=== PATIENT | male | born 1955 | race Caucasian/White ===

== ENCOUNTER 2019-02-01 09:28 | Inpatient (IN) | payer BC, MEDICARE, OTHER ==
[~2019-02-01] VITALS: Ht 182.9 cm; Wt 72.0 kg
[2019-02-01] MEDS ORDERED: THIAMINE 100 MG TAB PO ONE (10:00)
[2019-02-01] MEDS ORDERED: FOLIC ACID 1 MG TAB PO ONE (10:00)
[2019-02-01] MEDS ORDERED: LORAZEPAM 2 MG INJ IV ONE ×2 (10:00→11:30)
[2019-02-01] MEDS ORDERED: SOD CHLORIDE 0.9% 1,000 ML IV ONE ×2 (10:00→11:30)
--- NOTE | 2019-02-01 13:39 | ERD ---
ER Documentation Chief Complaint Chief Complaint bib ra for alcohol withdrawal symptoms , last drink x 4 days ago HPI This is a 63-year-old male with a past medical history of significant alcohol abuse who is presenting for symptoms concerning for alcohol withdrawal. The patient reportedly last drink 1/5 of tequila approximately 4 days ago. The patient did have a shot of vodka this morning to see if it would help his alcohol withdrawal symptoms, but it did not. The patient has been more tremulous and shaky than normal. He does endorse nausea with a few episodes of nonbilious nonbloody vomiting. The patient does have ambulatory dysfunction at baseline, but he has been falling more frequent over the last few days. The pat osiris reportedly fell this morning and felt too weak to get up. The patient endorses generalized weakness but no focal deficits. He denies any weakness or numbness or tingling to the face or extremities. He did hit his head but denies any loss of consciousness. He denies any headache or vision changes at this time. He denies any neck or back pain. The patient does not endorse any confusion. He is alert and oriented x4. He is not making up stories. The patient denies feeling sick recently. The patient denies fever or chills. The patient denies lightheadedness or dizziness. The patient has had no chest pain or trouble breathing. The patient denies abdominal pain. The patient denies changes to bowel movements or urination. The patient recently got insurance after turning 63. He was evaluated by primary care physician who is assessing him for his alcoholism. He was scheduled to get an MRI today, but this is been deferred due to coming to the emergency department instead. ROS All systems reviewed and are negative except as per history of present illness. Medications Home Meds No Active Prescriptions or Reported Meds Allergies Allergies: Coded Allergies: No Known Allergies (Verified Allergy, Mild, 02/01/19) PMhx/Soc History of Surgery: No Anesthesia Reaction: No Hx Neurological Disorder: No Hx Respiratory Disorders: No Hx Cardiac Disorders: No Hx Psychiatric Problems: No Hx Miscellaneous Medical Probl: No Hx Alcohol Use: Yes Hx Substance Use: No Hx Tobacco Use: No Smoking Status: Never smoker FmHx Family History: No diabetes Physical Exam Vitals Vital Signs Date Temp Pulse Resp B/P (MAP) Pulse Ox O2 O2 Flow FiO2 Time Delivery Rate 02/01/19 89 16 123/87 98 Room Air 12:28 (99) 02/01/19 93 18 130/90 97 Room Air 10:35 (103) 02/01/19 97.8 116 18 161/98 100 09:34 (119) Physical Exam Const: No apparent distress, well-developed, well-nourished Head: Normocephalic, Atraumatic Eyes: Normal Conjunctiva. Extraocular movements intact. Pupils equal, round and reactive to light ENT: Normal External Ears, Nose. Dry mucous membranes. Neck: Full range of motion. No meningismus. Resp: Clear to auscultation bilaterally, No wheezes, rales or rhonchi Cardio: Regular rate and rhythm. No murmurs, rubs or gallops Abd: Soft, non tender, non distended. Normal bowel sounds Skin: No petechiae or rashes Back: No midline tenderness. No CVA tenderness Ext: No cyanosis, or edema Neur: Awake and alert, oriented 4. Cranial nerves intact. No facial droop. Normal strength, sensation. Tremulous but coordination is normal. Psych: Anxious Result Diagram: 02/01/19 1132 02/01/19 1132 Results 24 hrs Laboratory Tests Test 02/01/19 09:49 02/01/19 11:32 Ethyl Alcohol Level < 10.0 mg/dl White Blood Count 9.1 10^3/ul Red Blood Count 3.79 10^6/ul Hemoglobin 12.6 g/dl Hematocrit 36.4 % Mean Corpuscular Volume 96.0 fl Mean Corpuscular Hemoglobin 33.2 pg Mean Corpuscular Hemoglobin Concent 34.6 g/dl Red Cell Distribution Width 13.2 % Platelet Count 73 10^3/UL Mean Platelet Volume 12.1 fl Immature Granulocytes % 0.600 % Neutrophils % 87.2 % Lymphocytes % 4.3 % Monocytes % 7.7 % Eosinophils % 0.0 % Basophils % 0.2 % Nucleated Red Blood Cells % 0.0 /100WBC Immature Granulocytes # 0.050 10^3/ul Neutrophils # 7.9 10^3/ul Lymphocytes # 0.4 10^3/ul Monocytes # 0.7 10^3/ul Eosinophils # 0.0 10^3/ul Basophils # 0.0 10^3/ul Nucleated Red Blood Cells # 0.0 10^3/ul Sodium Level 140 mmol/L Potassium Level 3.1 mmol/L Chloride Level 104 mmol/L Carbon Dioxide Level 24 mmol/L Anion Gap 12 Blood Urea Nitrogen 16 mg/dl Creatinine 0.86 mg/dl Est Glomerular Filtrat Rate mL/min > 60 mL/min Glucose Level 124 mg/dl Calcium Level 8.4 mg/dl Total Bilirubin 2.0 mg/dl Direct Bilirubin 0.00 mg/dl Indirect Bilirubin 2.0 mg/dl Aspartate Amino Transf (AST/SGOT) 123 IU/L Alanine Aminotransferase (ALT/SGPT) 68 IU/L Alkaline Phosphatase 71 IU/L Total Protein 7.1 g/dl Albumin 4.0 g/dl Globulin 3.10 g/dl Albumin/Globulin Ratio 1.29 Current Medications Medications Dose Sig/Blane Start Time Status Last (Trade) Ordered Route PRN Stop Time Admin Dose Reason Admin Lorazepam 1 mg ONCE ONCE 02/01/19 DC 02/01/19 (Ativan) IV 10:00 09:45 02/01/19 10:01 Thiamine 100 mg ONCE ONCE 02/01/19 DC 02/01/19 HCl PO 10:00 10:01 (Vitamin B1) 02/01/19 10:01 Folic Acid 1 mg ONCE ONCE 02/01/19 DC 02/01/19 (Folic Acid) PO 10:00 10:01 02/01/19 10:01 Sodium 1,000 ml @ Q1H ONCE 02/01/19 DC 02/01/19 Chloride 1,000 mls/hr IV 10:00 09:45 02/01/19 10:59 Lorazepam 1 mg ONCE ONCE 02/01/19 DC 02/01/19 (Ativan) IV 11:30 11:52 02/01/19 11:31 Sodium 1,000 ml @ Q1H ONCE 02/01/19 DC 02/01/19 Chloride 1,000 mls/hr IV 11:30 11:52 02/01/19 12:29 Procedures/MDM MDM The patient's presentation warrants further investigation. Previous medical records, if available, were reviewed. LABS The patient's laboratory testing was obtained and reviewed. No emergent treatment was required unless described below. CBC: Mild normocytic anemia, not emergent. Thrombocytopenia without evidence of acute blood loss. No E/o systemic infection. Chemistry: Mild hypokalemia, not emergent. Hyperbilirubinemia with transaminitis and a pattern concerning for alcoholic liver disease and obstructive cholestatic liver disease. No E/o severe acidosis or alkalosis or renal failure or diabetic ketoacidosis Tox: No E/o alcohol abuse. IMAGING Imaging and Radiology interpretation reviewed. CT brain FINDINGS: The ventricles and sulci are mildly prominent indicative of volume loss. There is mild cerebellar volume loss. There is no intracranial hemorrhage, mass effect or midline shift. No abnormal intra-axial or extra-axial fluid collections are seen. The dickerson/white matter differentiation is well preserved. There are mild scattered foci of hypoattenuation in the periventricular, deep, and subcortical white matter, which are nonspecific in etiology but likely reflect chronic small vessel ischemic changes. There are mild intracranial vascular calcifications consistent with atherosclerosis. The visualized paranasal sinuses are essentially clear. IMPRESSION: 1. No acute intracranial hemorrhage, transcortical infarction or mass effect. 2. Mild intracranial atherosclerosis and chronic small vessel ischemic borjas ges. 3. Mild generalized cerebral and cerebellar volume loss. Electronically viewed and signed by Oskar Paris MD, MD on 02/01/2019 11:32 TREATMENT/DISPOSITION The patient presents for symptoms concerning for alcohol withdrawal. I do suspect alcohol withdrawal at this time, but I do not suspect delirium tremens. The patient has not had a seizure episode despite not having any significant alcohol in his system over the last 4 days. The patient was treated with IV fluids, thiamine, folate and Ativan in the emergency department with significant improvement of his symptoms. The patient is at risk of alcohol withdrawal related seizures over the next 3 to 4 days. I discussed the risks of concomitant use of Ativan and alcohol including respiratory depression and , and the patient expressed understanding. I will give the patient a prescription for a few Ativan tablets to help with his withdrawal symptoms. I do not feel the patient requires admission at this time. He may continue to pursue his outpatient regimen with his primary physician. The patient does have sequelae of alcoholic liver disease including anemia, thrombocytopenia and obstructive cholestatic disease. The patient understands the dangers of continued alcohol abuse. Many of the patient's symptoms are chronic in nature. While Wernicke's encephalopathy is certainly a possibility, this is not something that is new or acute. I will prescribe the patient thiamine and folate as well. DISCHARGE Upon reevaluation of the patient, symptoms have improved. No emergent diagnoses were identified. At this time, I feel that the patient stable for discharge. The patient was instructed to follow-up with a primary care physician in 1-3 days. The patient will be given strict precautions with which to return to the emergency department. Prescriptions: Zofran, Ativan, thiamine, folate The patient's blood pressure was elevated at greater than 120/80 while in the emergency department. The patient was otherwise stable with no evidence of hypertensive urgency or emergency. The patient does not require admission for blood pressure control. I have discussed with the patient the risks of hypertension. I have instructed the patient to return to the ER for any new or worsening symptoms including chest pain, shortness of breath, headache, blurred vision, confusion, nausea, vomiting or LOC. I have advised the patient to follow up with the primary care physician for outpatient monitoring and treatment for hypertension in 1-3 days. Disclaimer: Inadvertent spelling and grammatical errors are likely due to EHR/dictation software use and do not reflect on the overall quality of patient care. Note that the electronic time recorded on this note does not necessarily reflect the actual time of the patient encounter. Departure Diagnosis: Primary Impression: Alcohol withdrawal Complication of substance-induced condition: uncomplicated Qualified Codes: F10.230 - Alcohol dependence with withdrawal, uncomplicated Additional Impressions: Tremulousness Nausea Poor appetite Ambulatory dysfunction Normocytic anemia Thrombocytopenia Hypokalemia Alcoholic liver disease Obstructive cholestatic liver disease Condition: Stable Patient Instructions: Alcohol Addiction, Alcohol Withdrawal, Cirrhosis of the Liver, Fall Prevention, Nausea Additional Instructions: Thank you for for coming to [facility] for your care today. Please ask your nurse or provider if you have questions about your care today and do not leave until all your questions have been answered. Please use any medications given as directed and follow-up with your doctor (or the doctor you were referred to) in the next 1-3 days. If you do not have a primary care doctor you may follow up at the [facility] or [facility] (listed below). You may also use motrin and tylenol as needed for fever and/or pain unless instructed otherwise by your provider or nurse. Indications for more urgent follow-up have been discussed, but you may return to the Emergency Department at ANY time for any worrisome or worsening symptoms. If you have abdominal pain, please know that no test or exam you received is perfect and you should follow up within 8 hours for continued pain. If you had any imaging studies today, such as an X-Ray or CT Scan, these studies will be reviewed later by a radiologist. You will be called if there are important findings that were not identified today, so make sure the contact information you provided at registration is correct. If you received any narcotic pain control medicine today, such as Vicodin, Morphine or Dilaudid, your coordination and judgment may be affected for a number of hours. Please do not drive or operate heavy machinery, and you may want someone to assist you at home. If you were given a prescription for narcotic medication, be aware that it is very addictive- use sparingly and only if necessary. PLEASE SEEK FURTHER EVALUATION AND MANAGEMENT AT YOUR DOCTORS OFFICE WITHIN THE NEXT 1-3 DAYS. IT IS YOUR RESPONSIBILITY TO MAKE AN APPOINTMENT FOR FOLOW-UP CARE. IF YOU HAVE A PRIMARY DOCTOR, PLEASE CALL THEIR OFFICE TO SCHEDULE AN APPOINTMENT FOR FOLLOW UP. IF YOU DO NOT HAVE A PRIMARY DOCTOR YOU CAN CALL OUR PHYSICIAN REFERRAL HOTLINE AT IF YOU CAN NOT AFFORD TO SEE A PHYSICIAN YOU CAN CHOSE FROM THE FOLLOWING [facility]: [facility] [address] [facility] [facility] [address] [facility] [address] [facility] [facility] [address] [facility] [facility] [address] [facility]. [facility]. [address] SHARA MAGAÑA MD Feb 01, 2019 13:23
[2019-02-01] MEDS ORDERED: ONDA8TAB9 PO (13:45)
[2019-02-01] MEDS ORDERED: FOLI-50 PO (13:45)
[2019-02-01] MEDS ORDERED: LORA-441 PO (13:45)
[2019-02-01] MEDS ORDERED: THIA50TA7 PO (13:45)
[2019-02-01] MEDS ORDERED: ONDANSETRON 4 MG INJ IV PRN ×2 (15:30→16:00)
[2019-02-01] MEDS ORDERED: ACETAMINOPHEN 325 MG TAB PO PRN (15:30)
[2019-02-01 15:48] VITALS: Ht 182.9 cm; Wt 72.0 kg
[2019-02-01] MEDS ORDERED: hydrALAzine 20 MG INJ IV PRN (16:00)
[2019-02-01] MEDS ORDERED: NACL 0.9% 3 ML SYG IV SCH (16:00)
[2019-02-01] MEDS ORDERED: NITROGLYCERIN (SL) 0.4 MG TAB SL PRN (16:00)
[2019-02-01] MEDS ORDERED: MAGNESIUM HYDROXIDE 30ML CUP PO PRN (16:00)
[2019-02-01] MEDS ORDERED: ALBUTEROL/IPRATROPIUM (NEB) 3 ML AMP HHN PRN (16:00)
[2019-02-01] MEDS ORDERED: morphine 2 MG INJ IV PRN (16:00)
[2019-02-01] MEDS ORDERED: DOCUSATE SODIUM 100 MG CAP PO PRN (16:00)
[2019-02-01] MEDS: CHLORDIAZEPOXIDE 25 MG CAP PO SCH ×2 (16:18→20:33)
[2019-02-01] MEDS: SOD CHLORIDE 0.45% 1,000 ML IV SCH (16:19)
--- NOTE | 2019-02-01 16:27 | HP ---
Date/Time of Note Date/Time of Note DATE: 02/01/19 TIME: 16:22 Assessment/Plan VTE Prophylaxis SCD applied (from Nsg): Yes Pharmacological prophylaxis: other Lines/Catheters IV Catheter Type (from Nrsg): Saline Lock Assessment/Plan Hospital Course A/P: 63-year-old male with a past medical history of significant alcohol abuse, who was brought in for signs of alcohol withdrawal. # ETOH withdrawal: Again patient comes in with tremors and signs of severe withdrawal. -Banana bag, he did receive thiamine as there is concern of Wernicke's encephalopathy -Librium 50 mg 3 times daily, Ativan every 30 minutes as needed -We will get social work consult, check TSH, A1c, lipid panel as well #GI prophylaxis: PPI. Result Diagram: 02/01/19 1132 02/01/19 1132 Results 24hrs Laboratory Tests Test 02/01/19 09:49 02/01/19 11:32 Ethyl Alcohol Level < 10.0 H White Blood Count 9.1 Red Blood Count 3.79 L Hemoglobin 12.6 L Hematocrit 36.4 L Mean Corpuscular Volume 96.0 Mean Corpuscular Hemoglobin 33.2 H Mean Corpuscular Hemoglobin Concent 34.6 Red Cell Distribution Width 13.2 Platelet Count 73 L Mean Platelet Volume 12.1 H Immature Granulocytes % 0.600 H Neutrophils % 87.2 H Lymphocytes % 4.3 L Monocytes % 7.7 Eosinophils % 0.0 Basophils % 0.2 Nucleated Red Blood Cells % 0.0 Immature Granulocytes # 0.050 H Neutrophils # 7.9 H Lymphocytes # 0.4 L Monocytes # 0.7 Eosinophils # 0.0 Basophils # 0.0 Nucleated Red Blood Cells # 0.0 Sodium Level 140 Potassium Level 3.1 L Chloride Level 104 Carbon Dioxide Level 24 Anion Gap 12 Blood Urea Nitrogen 16 Creatinine 0.86 Est Glomerular Filtrat Rate mL/min > 60 Glucose Level 124 Calcium Level 8.4 Total Bilirubin 2.0 H Direct Bilirubin 0.00 Indirect Bilirubin 2.0 H Aspartate Amino Transf (AST/SGOT) 123 H Alanine Aminotransferase (ALT/SGPT) 68 Alkaline Phosphatase 71 Total Protein 7.1 Albumin 4.0 Globulin 3.10 Albumin/Globulin Ratio 1.29 HPI/ROS Admit Date/Time Admit Date/Time Hx of Present Illness 63-year-old male with a past medical history of significant alcohol abuse, who was brought in for signs of alcohol withdrawal. Per ER, the patient reportedly last drink 1/5 of tequila approximately 4 days ago. The patient did have a shot of vodka this morning to see if it would help his alcohol withdrawal symptoms, but it did not. Patient has been tremulous and more shaky than normal. He does endorse nausea with a few episodes of nonbilious nonbloody vomiting. Patient also apparently has been falling more frequent over the last few days. He re portedly fell this morning and felt too weak to get up. The patient endorses generalized weakness but no focal deficits. He denies any weakness or numbness or tingling to the face or extremities. He did hit his head but denies any loss of consciousness. Denies any upper lower GI bleeding, chest pain, shortness of breath, headaches or blurry vision. He denies any neck or back pain. When he came in today he was found with elevated blood alcohol levels and was given thiamine and multivitamin. PMH/Family/Social Past Medical History Medications Current Medications IV Flush (NS 3 ml) 3 ml PER PROTOCOL IV ; Start 02/01/19 at 16:00 Ondansetron HCl (Zofran Inj) 4 mg Q6H PRN IV NAUSEA/VOMITING; Start 02/01/19 at 16:00 Acetaminophen (Tylenol Tab) 650 mg Q6H PRN PO .PAIN 1-3 OR TEMP; Start 02/01/19 at 16:00 Acetaminophen/ Hydrocodone Bitart ([place] (5/325)) 1 tab Q6H PRN PO .MOD PAIN 4- 6; Start 02/01/19 at 16:00 Morphine Sulfate (morphine) 2 mg Q4H PRN IV .SEVERE PAIN 7-10; Start 02/01/19 at 16:00 Docusate Sodium (Colace) 100 mg Q12H PRN PO .CONSTIPATION; Start 02/01/19 at 16:00 Magnesium Hydroxide (Milk Of Mag) 30 ml DAILY PRN PO .CONSTIPATION; Start 02/01/19 at 16:00 Pantoprazole (Protonix Tab) 40 mg DAILY@06 PO ; Start 02/02/19 at 06:00 Sodium Chloride 1,000 ml @ 75 mls/hr [id number] IV Last administered on 02/01/19at 16:19; Admin Dose 75 MLS/HR; Start 02/01/19 at 15:49 Lorazepam (Ativan) 1 mg Q1H PRN IV CONTROL WITHDRAWAL SYMPTOMS; Start 02/01/19 at 16:00 Albuterol/ Ipratropium (Duoneb) 3 ml Q4H RESP THERAPY PRN HHN SHORTNESS OF BREATH; Start 02/01/19 at 16:00 Hydralazine HCl (Apresoline) 10 mg Q6H PRN IV ELEVATED BLOOD PRESSURE; Start 02/01/19 at 16:00 Nitroglycerin (Nitroglycerin (Sl Tab) 0.4 Mg) 1 tab Q5M PRN SL ANGINA; Start 02/01/19 at 16:00 Multivitamins 10 ml/Thiamine HCl 100 mg/Folic Acid 1 mg/Sodium Chloride 1,011.2 ml @ 125 mls/ hr DAILY@09 IVPB ; Start 02/02/19 at 09:00 Chlordiazepoxide (Librium) 50 mg TID PO Last administered on 02/01/19at 16:18; Admin Dose 50 MG; Start 02/01/19 at 16:00 Coded Allergies: No Known Allergies (Verified Allergy, Mild, 02/01/19) Past Surgical History Past Surgical Hx: other (Arm, tonsils) Social History Alcohol Use: heavy Smoking Status: Never smoker Drug Use: none Exam/Review of Systems Vital Signs Vitals Vital Signs Date Temp Pulse Resp B/P (MAP) Pulse Ox O2 O2 Flow FiO2 Time Delivery Rate 02/01/19 80 20 138/99 100 Room Air 14:24 (112) 02/01/19 98.6 14:00 Exam Exam General: Lying in bed, tremulous, but answering questions appropriately HEENT: Atraumatic, normocephalic. The pupils are equal, round and reactive. Neck: Supple Lungs: Clear to oscillation bilaterally, no wheezes Heart: Normal S1-S2, Regular rhythm and rate. Abdomen: Soft , nontender, nondistended , bowel sounds are present. Extremities: Normal to inspection, no edema no cyanosis Neurologic: No focal deficits SUSAN SPRING Feb 01, 2019 16:27
[2019-02-01 20:00] VITALS: BP 113/79; PULSE 63; RESP 18
[2019-02-01] MEDS ORDERED: LUT PO SCH (20:30)
[2019-02-01] MEDS ORDERED: FOLIC ACID PO SCH (20:30)
[2019-02-01] MEDS ORDERED: [UNRECOGNIZED DRUG - OTHER] PO SCH (20:30)
[2019-02-01] MEDS ORDERED: MULTIVITS MIN PO SCH (20:30)
[2019-02-01] MEDS: THIAMINE 100 MG TAB PO SCH (20:43)
[2019-02-01] MEDS: LORAZEPAM 2 MG INJ IV PRN (21:33)
[2019-02-02 02:00] VITALS: BP 135/92; PULSE 58; RESP 17
[2019-02-02] MEDS: LORAZEPAM 2 MG INJ IV PRN ×3 (02:04→22:06)
[2019-02-02] MEDS: SOD CHLORIDE 0.45% 1,000 ML IV SCH ×2 (05:28→18:29)
[2019-02-02] MEDS: PANTOPRAZOLE (EC) 40 MG TAB PO SCH (05:29)
[2019-02-02] MEDS: CHLORDIAZEPOXIDE 25 MG CAP PO SCH ×3 (08:08→21:19)
[2019-02-02] MEDS: THIAMINE 100 MG TAB PO SCH (08:09)
[2019-02-02] MEDS: MULTIVITAMINS 10 ML, THIAMINE 100 MG, FOLIC ACID 1 MG in SOD CHLORIDE 0.9% 1,000 ML IVPB SCH (08:09)
[2019-02-02 08:36] VITALS: BP 125/54; PULSE 63; RESP 18
--- NOTE | 2019-02-02 15:07 | PN ---
Date/Time of Note Date/Time of Note DATE: 02/02/19 TIME: 15:04 Assessment/Plan VTE Prophylaxis Risk score (from Ns)>0 risk: 3 SCD applied (from [facility] [place] No SCD contraindicated: other Pharmacological prophylaxis: heparin Lines/Catheters IV Catheter Type (from [facility]): Peripheral IV Urinary Cath still in place: No Assessment/Plan Hospital Course S: Patient had some withdrawal and agitation last night, improved today, per nursing staff taking his p.o. medications including Librium. O: VS - see below PE: General: Lying in bed, less tremulous, answers questions appropriately HEENT: Atraumatic, normocephalic. The pupils are equal, round and reactive. Neck: Supple Lungs: Clear to oscillation bilaterally, no wheezes Heart: Normal S1-S2, Regular rhythm and rate. Abdomen: Soft , nontender, nondistended , bowel sounds are present. Extremities: Normal to inspection, no edema no cyanosis Neurologic: No focal deficits A/P: 63-year-old male with a past medical history of significant alcohol abuse, who was brought in for signs of alcohol withdrawal after quitting drinking 5 days ago. # ETOH withdrawal: Slowly improving again patient initially presented with significant tremors and signs of severe withdrawal. -For now continue daily banana bag, he did receive thiamine as there was concern of Wernicke's encephalopathy -Also continue Librium 50 mg 3 times daily, 1 mg IV Ativan every 30 minutes as needed -Follow final recommendations from physical therapy, along with social work consult -We will replete low potassium levels today #GI prophylaxis: PPI. Result Diagram: 02/02/19 0452 02/02/19 0452 Results 24hrs Laboratory Tests Test 02/01/19 16:55 02/02/19 04:52 Urine Color [place] Urine Clarity CLEAR Urine pH 6.0 Urine Specific [place] 1.015 Urine Ketones TRACE A Urine Nitrite NEGATIVE Urine Bilirubin NEGATIVE Urine Urobilinogen 2+ H Urine Leukocyte Esterase NEGATIVE Urine Microscopic RBC 1 Urine Microscopic WBC 1 Urine Hemoglobin 3+ H Urine Glucose NEGATIVE Urine Total Protein 2+ H White Blood Count 10.1 Red Blood Count 3.77 L Hemoglobin 12.5 L Hematocrit 37.5 L Mean Corpuscular Volume 99.5 Mean Corpuscular Hemoglobin 33.2 H Mean Corpuscular Hemoglobin Concent 33.3 Red Cell Distribution Width 13.3 Platelet Count 78 L Mean Platelet Volume 13.0 H Immature Granulocytes % 0.500 H Neutrophils % 77.6 H Lymphocytes % 9.4 L Monocytes % 12.3 H Eosinophils % 0.1 Basophils % 0.1 Nucleated Red Blood Cells % 0.0 Immature Granulocytes # 0.050 H Neutrophils # 7.9 H Lymphocytes # 1.0 Monocytes # 1.3 H Eosinophils # 0.0 Basophils # 0.0 Nucleated Red Blood Cells # 0.0 Sodium Level 142 Potassium Level 3.2 L Chloride Level 105 Carbon Dioxide Level 22 Anion Gap 15 H Blood Urea Nitrogen 19 Creatinine 0.82 Est Glomerular Filtrat Rate mL/min > 60 Glucose Level 64 #L Hemoglobin A1c 5.0 Calcium Level 8.7 Phosphorus Level 2.7 Magnesium Level 1.8 Triglycerides Level 72 Cholesterol Level 198 LDL Cholesterol, Calculated 88 HDL Cholesterol 96 H Cholesterol/HDL Ratio 2.0 Thyroid Stimulating Hormone (TSH) 3.050 Exam/Review of Systems Exam Vitals Vital Signs Date Temp Pulse Resp B/P (MAP) Pulse Ox O2 O2 Flow FiO2 Time Delivery Rate 02/02/19 98.3 63 18 125/54 97 Room Air 08:36 (77) Intake and Output 02/01/19 02/01/19 02/02/19 1515:00 23:00 07:00 IntakeIntake Total 1000 ml BalanceBalance 1000 ml Results Results 24hrs Laboratory Tests Test 02/01/19 16:55 02/02/19 04:52 Urine Color [place] Urine Clarity CLEAR Urine pH 6.0 Urine Specific [place] 1.015 Urine Ketones TRACE A Urine Nitrite NEGATIVE Urine Bilirubin NEGATIVE Urine Urobilinogen 2+ H Urine Leukocyte Esterase NEGATIVE Urine Microscopic RBC 1 Urine Microscopic WBC 1 Urine Hemoglobin 3+ H Urine Glucose NEGATIVE Urine Total Protein 2+ H White Blood Count 10.1 Red Blood Count 3.77 L Hemoglobin 12.5 L Hematocrit 37.5 L Mean Corpuscular Volume 99.5 Mean Corpuscular Hemoglobin 33.2 H Mean Corpuscular Hemoglobin Concent 33.3 Red Cell Distribution Width 13.3 Platelet Count 78 L Mean Platelet Volume 13.0 H Immature Granulocytes % 0.500 H Neutrophils % 77.6 H Lymphocytes % 9.4 L Monocytes % 12.3 H Eosinophils % 0.1 Basophils % 0.1 Nucleated Red Blood Cells % 0.0 Immature Granulocytes # 0.050 H Neutrophils # 7.9 H Lymphocytes # 1.0 Monocytes # 1.3 H Eosinophils # 0.0 Basophils # 0.0 Nucleated Red Blood Cells # 0.0 Sodium Level 142 Potassium Level 3.2 L Chloride Level 105 Carbon Dioxide Level 22 Anion Gap 15 H Blood Urea Nitrogen 19 Creatinine 0.82 Est Glomerular Filtrat Rate mL/min > 60 Glucose Level 64 #L Hemoglobin A1c 5.0 Calcium Level 8.7 Phosphorus Level 2.7 Magnesium Level 1.8 Triglycerides Level 72 Cholesterol Level 198 LDL Cholesterol, Calculated 88 HDL Cholesterol 96 H Cholesterol/HDL Ratio 2.0 Thyroid Stimulating Hormone (TSH) 3.050 Medications Medication Current Medications IV Flush (NS 3 ml) 3 ml PER PROTOCOL IV ; Start 02/01/19 at 16:00 Ondansetron HCl (Zofran Inj) 4 mg Q6H PRN IV NAUSEA/VOMITING; Start 02/01/19 at 16:00 Acetaminophen (Tylenol Tab) 650 mg Q6H PRN PO .PAIN 1-3 OR TEMP; Start 02/01/19 at 16:00 Acetaminophen/ Hydrocodone Bitart ([place] (5/325)) 1 tab Q6H PRN PO .MOD PAIN 4- 6; Start 02/01/19 at 16:00 Morphine Sulfate (morphine) 2 mg Q4H PRN IV .SEVERE PAIN 7-10; Start 02/01/19 at 16:00 Docusate Sodium (Colace) 100 mg Q12H PRN PO .CONSTIPATION; Start 02/01/19 at 16:00 Magnesium Hydroxide (Milk Of Mag) 30 ml DAILY PRN PO .CONSTIPATION; Start 02/01/19 at 16:00 Pantoprazole (Protonix Tab) 40 mg DAILY@06 PO Last administered on 02/02/19at 05:29; Admin Dose 40 MG; Start 02/02/19 at 06:00 Sodium Chloride 1,000 ml @ 75 mls/hr [id number] IV Last administered on 02/02/19at 05:28; Admin Dose 75 MLS/HR; Start 02/01/19 at 15:49 Lorazepam (Ativan) 1 mg Q1H PRN IV CONTROL WITHDRAWAL SYMPTOMS Last administered on 02/02/19at 09:00; Admin Dose 1 MG; Start 02/01/19 at 16:00 Albuterol/ Ipratropium (Duoneb) 3 ml Q4H RESP THERAPY PRN HHN SHORTNESS OF BREATH; Start 02/01/19 at 16:00 Hydralazine HCl (Apresoline) 10 mg Q6H PRN IV ELEVATED BLOOD PRESSURE; Start 02/01/19 at 16:00 Nitroglycerin (Nitroglycerin (Sl Tab) 0.4 Mg) 1 tab Q5M PRN SL ANGINA; Start 02/01/19 at 16:00 Multivitamins 10 ml/Thiamine HCl 100 mg/Folic Acid 1 mg/Sodium Chloride 1,011.2 ml @ 125 mls/ hr DAILY@09 IVPB Last administered on 02/02/19at 08:09; Admin Dose 125 MLS/HR; Start 02/02/19 at 09:00 Chlordiazepoxide (Librium) 50 mg TID PO Last administered on 02/02/19at 08:08; Admin Dose 50 MG; Start 02/01/19 at 16:00 Thiamine HCl (Vitamin B1) 50 mg DAILY PO Last administered on 02/02/19at 08:09; Admin Dose 50 MG; Start 02/01/19 at 20:30 Potassium Chloride 100 ml @ 50 mls/hr Q2H IVPB ; Start 02/02/19 at 16:00; Stop 02/02/19 at 23:59 SUSAN SPRING Feb 02, 2019 15:07
[2019-02-02 15:21] VITALS: BP 125/83; PULSE 71; RESP 20
[2019-02-02] MEDS: POTASSIUM CHLORIDE 100 ML IVPB SCH ×4 (16:47→22:55)
[2019-02-02 20:38] VITALS: BP 138/77; PULSE 95; RESP 18
[2019-02-02] MEDS ORDERED: HEPARIN 5,000 UNIT/1 ML VIAL SC SCH (21:00)
[2019-02-03] MEDS: ACETAMINOPHEN 325 MG TAB PO PRN ×2 (01:21→13:30)
[2019-02-03] MEDS: LORAZEPAM 2 MG INJ IV PRN (02:31)
[2019-02-03] MEDS: SOD CHLORIDE 0.45% 1,000 ML IV SCH ×3 (02:37→21:09)
[2019-02-03 02:57] VITALS: BP 142/74; PULSE 58; RESP 20
[2019-02-03] MEDS: PANTOPRAZOLE (EC) 40 MG TAB PO SCH (05:50)
[2019-02-03 07:50] VITALS: BP 135/84; PULSE 71; RESP 18
[2019-02-03] MEDS: MULTIVITAMINS 10 ML, THIAMINE 100 MG, FOLIC ACID 1 MG in SOD CHLORIDE 0.9% 1,000 ML IVPB SCH (08:12)
[2019-02-03] MEDS: THIAMINE 100 MG TAB PO SCH (08:13)
[2019-02-03] MEDS: CHLORDIAZEPOXIDE 25 MG CAP PO SCH ×3 (08:13→20:07)
[2019-02-03 14:12] VITALS: BP 127/84; PULSE 69; RESP 18
--- NOTE | 2019-02-03 16:07 | PN ---
Date/Time of Note Date/Time of Note DATE: 02/03/19 TIME: 15:59 Assessment/Plan VTE Prophylaxis Risk score (from [facility] [place])>0 risk: 4 SCD applied (from [facility] [place]): No SCD contraindicated: other Pharmacological prophylaxis: heparin Lines/Catheters IV C[facility]ter Type (from [facility]): Peripheral IV Urinary Cath still in place: No Assessment/Plan Hospital Course S: Patient still with some agitation symptoms, worked with PT, but improved. Tolerating diet. O: VS - see below PE: General: Lying in bed, less tremulous, answers questions appropriately HEENT: Atraumatic, normocephalic. The pupils are equal, round and reactive. Neck: Supple Lungs: Clear to oscillation bilaterally, no wheezes Heart: Normal S1-S2, Regular rhythm and rate. Abdomen: Soft , nontender, nondistended , bowel sounds are present. Extremities: Normal to inspection, no edema no cyanosis Neurologic: No focal deficits A/P: 63-year-old male with a past medical history of significant alcohol abuse, who was brought in for signs of alcohol withdrawal after quitting drinking 5 days ago. # ETOH withdrawal: Slowly improving again patient initially presented with significant tremors and signs of severe withdrawal. -For now continue daily banana bag, he did receive thiamine as there was concern of Wernicke's encephalopathy -Also continue Librium 50 mg 3 times daily, 1 mg IV Ativan every 30 minutes as needed -Continue OT and physical therap -We will replete low potassium levels today again #GI prophylaxis: PPI. Result Diagram: 02/03/19 0535 02/03/19 0535 Results 24hrs Laboratory Tests Test 02/03/19 05:35 White Blood Count 12.6 #H Red Blood Count 3.59 L Hemoglobin 12.1 L Hematocrit 37.4 L Mean Corpuscular Volume 104.2 H Mean Corpuscular Hemoglobin 33.7 H Mean Corpuscular Hemoglobin Concent 32.4 Red Cell Distribution Width 13.1 Platelet Count 95 #L Mean Platelet Volume 11.9 H Immature Granulocytes % 0.600 H Neutrophils % 80.3 H Lymphocytes % 8.3 L Monocytes % 9.9 Eosinophils % 0.7 Basophils % 0.2 Nucleated Red Blood Cells % 0.0 Immature Granulocytes # 0.070 H Neutrophils # 10.1 H Lymphocytes # 1.1 Monocytes # 1.3 H Eosinophils # 0.1 Basophils # 0.0 Nucleated Red Blood Cells # 0.0 Sodium Level 140 Potassium Level 3.4 L Chloride Level 103 Carbon Dioxide Level 15 L Anion Gap 22 #H Blood Urea Nitrogen 13 Creatinine 0.80 Est Glomerular Filtrat Rate mL/min > 60 Glucose Level 71 Calcium Level 8.3 L Phosphorus Level 2.6 Magnesium Level 1.6 L Total Bilirubin 1.4 H Direct Bilirubin 0.00 Indirect Bilirubin 1.4 H Aspartate Amino Transf (AST/SGOT) 109 H Alanine Aminotransferase (ALT/SGPT) 58 Alkaline Phosphatase 65 Total Protein 6.9 Albumin 3.7 Exam/Review of Systems Exam Vitals Vital Signs Date Temp Pulse Resp B/P (MAP) Pulse Ox O2 O2 Flow FiO2 Time Delivery Rate 02/03/19 98.1 69 18 127/84 97 Room Air 14:12 (98) Intake and Output 02/02/19 02/02/19 02/03/19 1515:00 23:00 07:00 IntakeIntake Total 150 ml 1506.2 ml 1765 ml OutputOutput Total 150 ml 200 ml 1 ml BalanceBalance 0 ml 1306.2 ml 1764 ml Results Results 24hrs Laboratory Tests Test 02/03/19 05:35 White Blood Count 12.6 #H Red Blood Count 3.59 L Hemoglobin 12.1 L Hematocrit 37.4 L Mean Corpuscular Volume 104.2 H Mean Corpuscular Hemoglobin 33.7 H Mean Corpuscular Hemoglobin Concent 32.4 Red Cell Distribution Width 13.1 Platelet Count 95 #L Mean Platelet Volume 11.9 H Immature Granulocytes % 0.600 H Neutrophils % 80.3 H Lymphocytes % 8.3 L Monocytes % 9.9 Eosinophils % 0.7 Basophils % 0.2 Nucleated Red Blood Cells % 0.0 Immature Granulocytes # 0.070 H Neutrophils # 10.1 H Lymphocytes # 1.1 Monocytes # 1.3 H Eosinophils # 0.1 Basophils # 0.0 Nucleated Red Blood Cells # 0.0 Sodium Level 140 Potassium Level 3.4 L Chloride Level 103 Carbon Dioxide Level 15 L Anion Gap 22 #H Blood Urea Nitrogen 13 Creatinine 0.80 Est Glomerular Filtrat Rate mL/min > 60 Glucose Level 71 Calcium Level 8.3 L Phosphorus Level 2.6 Magnesium Level 1.6 L Total Bilirubin 1.4 H Direct Bilirubin 0.00 Indirect Bilirubin 1.4 H Aspartate Amino Transf (AST/SGOT) 109 H Alanine Aminotransferase (ALT/SGPT) 58 Alkaline Phosphatase 65 Total Protein 6.9 Albumin 3.7 Medications Medication Current Medications IV Flush (NS 3 ml) 3 ml PER PROTOCOL IV ; Start 02/01/19 at 16:00 Ondansetron HCl (Zofran Inj) 4 mg Q6H PRN IV NAUSEA/VOMITING; Start 02/01/19 at 16:00 Acetaminophen (Tylenol Tab) 650 mg Q6H PRN PO .PAIN 1-3 OR TEMP Last administered on 02/03/19at 13:30; Admin Dose 650 MG; Start 02/01/19 at 16:00 Acetaminophen/ Hydrocodone Bitart ([place] (5/325)) 1 tab Q6H PRN PO .MOD PAIN 4- 6; Start 02/01/19 at 16:00 Morphine Sulfate (morphine) 2 mg Q4H PRN IV .SEVERE PAIN 7-10; Start 02/01/19 at 16:00 Docusate Sodium (Colace) 100 mg Q12H PRN PO .CONSTIPATION; Start 02/01/19 at 16:00 Magnesium Hydroxide (Milk Of Mag) 30 ml DAILY PRN PO .CONSTIPATION; Start 02/01/19 at 16:00 Pantoprazole (Protonix Tab) 40 mg DAILY@06 PO Last administered on 02/03/19at 05:50; Admin Dose 40 MG; Start 02/02/19 at 06:00 Sodium Chloride 1,000 ml @ 75 mls/hr [id number] IV Last administered on 02/03/19at 02:37; Admin Dose 75 MLS/HR; Start 02/01/19 at 15:49 Lorazepam (Ativan) 1 mg Q1H PRN IV CONTROL WITHDRAWAL SYMPTOMS Last administered on 02/03/19at 02:31; Admin Dose 1 MG; Start 02/01/19 at 16:00 Albuterol/ Ipratropium (Duoneb) 3 ml Q4H RESP THERAPY PRN HHN SHORTNESS OF BREATH; Start 02/01/19 at 16:00 Hydralazine HCl (Apresoline) 10 mg Q6H PRN IV ELEVATED BLOOD PRESSURE; Start 02/01/19 at 16:00 Nitroglycerin (Nitroglycerin (Sl Tab) 0.4 Mg) 1 tab Q5M PRN SL ANGINA; Start 02/01/19 at 16:00 Multivitamins 10 ml/Thiamine HCl 100 mg/Folic Acid 1 mg/Sodium Chloride 1,011.2 ml @ 125 mls/ hr DAILY@09 IVPB Last administered on 02/03/19at 08:12; Admin Dose 125 MLS/HR; Start 02/02/19 at 09:00 Chlordiazepoxide (Librium) 50 mg TID PO Last administered on 02/03/19at 13:30; Admin Dose 50 MG; Start 02/01/19 at 16:00 Thiamine HCl (Vitamin B1) 50 mg DAILY PO Last administered on 02/03/19at 08:13; Admin Dose 50 MG; Start 02/01/19 at 20:30 Potassium Chloride 100 ml @ 50 mls/hr Q2H IVPB ; Start 02/03/19 at 17:00; Stop 02/03/19 at 20:59 SUSAN SPRING Feb 03, 2019 16:07
[2019-02-03] MEDS: POTASSIUM CHLORIDE 100 ML IVPB SCH ×2 (17:43→20:07)
[2019-02-03 20:30] VITALS: BP 125/83; PULSE 81; RESP 18
[2019-02-03] MEDS ORDERED: MAGNESIUM SULFATE 2 GM/50 ML 50 ML IVPB ONE (20:30)
[2019-02-04 02:40] VITALS: BP 135/90; PULSE 74; RESP 20
[2019-02-04] MEDS: LORAZEPAM 2 MG INJ IV PRN ×3 (03:21→22:32)
[2019-02-04] MEDS: SOD CHLORIDE 0.45% 1,000 ML IV SCH (03:21)
[2019-02-04] MEDS: PANTOPRAZOLE (EC) 40 MG TAB PO SCH (05:52)
[2019-02-04] MEDS: POTASSIUM CHLORIDE 100 ML IVPB SCH ×2 (06:16→08:54)
[2019-02-04 07:40] VITALS: BP 131/91; PULSE 87; RESP 16
[2019-02-04] MEDS: THIAMINE 100 MG TAB PO SCH (08:55)
[2019-02-04] MEDS: CHLORDIAZEPOXIDE 25 MG CAP PO SCH ×3 (08:55→20:33)
[2019-02-04] MEDS: MULTIVITAMINS 10 ML, THIAMINE 100 MG, FOLIC ACID 1 MG in SOD CHLORIDE 0.9% 1,000 ML IVPB SCH (10:02)
[2019-02-04] MEDS: ACETAMINOPHEN 325 MG TAB PO PRN (12:44)
[2019-02-04 14:19] VITALS: BP 125/85; PULSE 77; RESP 18
--- NOTE | 2019-02-04 15:41 | PN ---
Date/Time of Note Date/Time of Note DATE: 02/04/19 TIME: 15:40 Assessment/Plan VTE Prophylaxis Risk score (from Ns)>0 risk: 2 SCD applied (from Ns): Yes Pharmacological prophylaxis: other Lines/Catheters IV Catheter Type (from [facility]rs): [place] Urinary Cath still in place: No Assessment/Plan Hospital Course S: Patient worked with OT and PT teams earlier today, tolerating diet but having some decreased appetite symptoms. O: VS - see below PE: General: Lying in bed, less tremulous but is still noticeable, answers questions appropriately HEENT: Atraumatic, normocephalic. The pupils are equal, round and reactive. Neck: Supple Lungs: Clear to oscillation bilaterally, no wheezes Heart: Normal S1-S2, Regular rhythm and rate. Abdomen: Soft , nontender, nondistended , bowel sounds are present. Extremities: Normal to inspection, no edema no cyanosis Neurologic: No focal deficits A/P: 63-year-old male with a past medical history of significant alcohol abuse, who was brought in for signs of alcohol withdrawal after quitting drinking 5 days prior to admission. # ETOH withdrawal: Slowly improving, again patient initially presented with significant tremors and signs of severe withdrawal. -For now continue daily banana bag, he did receive thiamine earlier as there was concern of Wernicke's encephalopathy, delinquency prevention social worker also met with patient and family and provided resources - continue Librium 50 mg 3 times daily, 1 mg IV Ativan every 30 minutes as needed -Continue OT and physical therapy -Monitor electrolytes #GI prophylaxis: PPI. Result Diagram: 02/04/19 0426 02/04/19 0426 Results 24hrs Laboratory Tests Test 02/04/19 04:26 White Blood Count 8.4 # Red Blood Count 3.54 L Hemoglobin 11.8 L Hematocrit 35.7 L Mean Corpuscular Volume 100.8 Mean Corpuscular Hemoglobin 33.3 H Mean Corpuscular Hemoglobin Concent 33.1 Red Cell Distribution Width 12.8 Platelet Count 117 #L Mean Platelet Volume 11.8 H Immature Granulocytes % 0.600 H Neutrophils % 74.2 Lymphocytes % 9.2 L Monocytes % 14.5 H Eosinophils % 1.1 Basophils % 0.4 Nucleated Red Blood Cells % 0.0 Immature Granulocytes # 0.050 H Neutrophils # 6.2 Lymphocytes # 0.8 Monocytes # 1.2 H Eosinophils # 0.1 Basophils # 0.0 Nucleated Red Blood Cells # 0.0 Sodium Level 139 Potassium Level 3.3 L Chloride Level 105 Carbon Dioxide Level 19 L Anion Gap 15 #H Blood Urea Nitrogen 9 Creatinine 0.72 Est Glomerular Filtrat Rate mL/min > 60 Glucose Level 84 Calcium Level 8.4 Exam/Review of Systems Exam Vitals Vital Signs Date Temp Pulse Resp B/P (MAP) Pulse Ox O2 O2 Flow FiO2 Time Delivery Rate 02/04/19 98.1 77 18 125/85 98 Room Air 14:19 (98) Intake and Output 02/03/19 02/03/19 02/04/19 1515:00 23:00 07:00 IntakeIntake Total 475 ml 1361.2 ml 1045 ml OutputOutput Total 400 ml BalanceBalance 75 ml 1361.2 ml 1045 ml Results Results 24hrs Laboratory Tests Test 02/04/19 04:26 White Blood Count 8.4 # Red Blood Count 3.54 L Hemoglobin 11.8 L Hematocrit 35.7 L Mean Corpuscular Volume 100.8 Mean Corpuscular Hemoglobin 33.3 H Mean Corpuscular Hemoglobin Concent 33.1 Red Cell Distribution Width 12.8 Platelet Count 117 #L Mean Platelet Volume 11.8 H Immature Granulocytes % 0.600 H Neutrophils % 74.2 Lymphocytes % 9.2 L Monocytes % 14.5 H Eosinophils % 1.1 Basophils % 0.4 Nucleated Red Blood Cells % 0.0 Immature Granulocytes # 0.050 H Neutrophils # 6.2 Lymphocytes # 0.8 Monocytes # 1.2 H Eosinophils # 0.1 Basophils # 0.0 Nucleated Red Blood Cells # 0.0 Sodium Level 139 Potassium Level 3.3 L Chloride Level 105 Carbon Dioxide Level 19 L Anion Gap 15 #H Blood Urea Nitrogen 9 Creatinine 0.72 Est Glomerular Filtrat Rate mL/min > 60 Glucose Level 84 Calcium Level 8.4 Medications Medication Current Medications IV Flush (NS 3 ml) 3 ml PER PROTOCOL IV ; Start 02/01/19 at 16:00 Ondansetron HCl (Zofran Inj) 4 mg Q6H PRN IV NAUSEA/VOMITING; Start 02/01/19 at 16:00 Acetaminophen (Tylenol Tab) 650 mg Q6H PRN PO .PAIN 1-3 OR TEMP Last administered on 02/04/19at 12:44; Admin Dose 650 MG; Start 02/01/19 at 16:00 Acetaminophen/ Hydrocodone Bitart ([place] (5/325)) 1 tab Q6H PRN PO .MOD PAIN 4- 6; Start 02/01/19 at 16:00 Morphine Sulfate (morphine) 2 mg Q4H PRN IV .SEVERE PAIN 7-10; Start 02/01/19 at 16:00 Docusate Sodium (Colace) 100 mg Q12H PRN PO .CONSTIPATION; Start 02/01/19 at 16:00 Magnesium Hydroxide (Milk Of Mag) 30 ml DAILY PRN PO .CONSTIPATION; Start 02/01/19 at 16:00 Pantoprazole (Protonix Tab) 40 mg DAILY@06 PO Last administered on 02/04/19at 05:52; Admin Dose 40 MG; Start 02/02/19 at 06:00 Lorazepam (Ativan) 1 mg Q1H PRN IV CONTROL WITHDRAWAL SYMPTOMS Last administered on 02/04/19at 03:21; Admin Dose 1 MG; Start 02/01/19 at 16:00 Albuterol/ Ipratropium (Duoneb) 3 ml Q4H RESP THERAPY PRN HHN SHORTNESS OF BREATH; Start 02/01/19 at 16:00 Hydralazine HCl (Apresoline) 10 mg Q6H PRN IV ELEVATED BLOOD PRESSURE; Start 02/01/19 at 16:00 Nitroglycerin (Nitroglycerin (Sl Tab) 0.4 Mg) 1 tab Q5M PRN SL ANGINA; Start 02/01/19 at 16:00 Multivitamins 10 ml/Thiamine HCl 100 mg/Folic Acid 1 mg/Sodium Chloride 1,011.2 ml @ 125 mls/ hr DAILY@09 IVPB Last administered on 02/04/19at 10:02; Admin Dose 125 MLS/HR; Start 02/02/19 at 09:00 Chlordiazepoxide (Librium) 50 mg TID PO Last administered on 02/04/19at 14:20; Admin Dose 50 MG; Start 02/01/19 at 16:00 Thiamine HCl (Vitamin B1) 50 mg DAILY PO Last administered on 02/04/19at 08:55; Admin Dose 50 MG; Start 02/01/19 at 20:30 SUSAN SPRING Feb 04, 2019 15:41
[2019-02-04] MEDS: HYDROCODONE/APAP (5/325) TAB PO PRN (18:32)
[2019-02-04 20:39] VITALS: BP 133/80; PULSE 106; RESP 20
[2019-02-05] MEDS: LORAZEPAM 2 MG INJ IV PRN ×3 (02:00→08:16)
[2019-02-05 02:39] VITALS: BP 127/86; PULSE 77; RESP 18
[2019-02-05] MEDS: PANTOPRAZOLE (EC) 40 MG TAB PO SCH (05:29)
[2019-02-05 08:00] VITALS: BP 147/95; PULSE 110; RESP 18
[2019-02-05] MEDS: MULTIVITAMINS 10 ML, THIAMINE 100 MG, FOLIC ACID 1 MG in SOD CHLORIDE 0.9% 1,000 ML IVPB SCH (08:16)
[2019-02-05] MEDS: CHLORDIAZEPOXIDE 25 MG CAP PO SCH ×3 (08:16→21:03)
[2019-02-05] MEDS: THIAMINE 100 MG TAB PO SCH (08:16)
[2019-02-05] MEDS: POTASSIUM CHLORIDE 100 ML IVPB SCH ×3 (09:44→17:07)
--- NOTE | 2019-02-05 10:09 | PN ---
Date/Time of Note Date/Time of Note DATE: 02/05/19 TIME: 10:07 Assessment/Plan VTE Prophylaxis Risk score (from Ns)>0 risk: 4 SCD applied (from Ns): Yes Pharmacological prophylaxis: other Lines/Catheters IV [facility]ter [facility]from [facility]): Saline Lock Urinary Cath still in place: No Assessment/Plan Hospital Course S: Patient required some extra Ativan earlier secondary to some agitation. Still having some poor p.o. intake, otherwise no acute events overnight. O: VS - see below PE: General: Lying in bed, less tremulous but is still noticeable, answers questions appropriately HEENT: Atraumatic, normocephalic. The pupils are equal, round and reactive. Neck: Supple Lungs: Clear to oscillation bilaterally, no wheezes Heart: Normal S1-S2, Regular rhythm and rate. Abdomen: Soft , nontender, nondistended , bowel sounds are present. Extremities: Normal to inspection, no edema no cyanosis Neurologic: No focal deficits A/P: 63-year-old male with a past medical history of significant alcohol abuse, who was brought in for signs of alcohol withdrawal after quitting drinking 5 day s prior to admission. # ETOH withdrawal: Slowly improving, again patient initially presented with s ignificant tremors and signs of severe withdrawal. - continue daily banana bag, he did receive thiamine earlier as there was concern of Wernicke's encephalopathy, manager social responsibility also met with patient and family and provided resources - continue Librium 50 mg 3 times daily, 1 mg IV Ativan every 30 minutes as needed - Continue OT and physical therapy - Replete low electrolytes #GI prophylaxis: PPI. Result Diagram: 02/05/19 0610 02/05/19 0610 Results 24hrs Laboratory Tests Test 02/05/19 06:10 White Blood Count 8.7 Red Blood Count 3.33 L Hemoglobin 11.2 L Hematocrit 32.6 L Mean Corpuscular Volume 97.9 Mean Corpuscular Hemoglobin 33.6 H Mean Corpuscular Hemoglobin Concent 34.4 Red Cell Distribution Width 12.7 Platelet Count 157 # Mean Platelet Volume 10.9 H Immature Granulocytes % 0.500 H Neutrophils % 68.2 Lymphocytes % 10.4 L Monocytes % 19.1 H Eosinophils % 1.5 Basophils % 0.3 Nucleated Red Blood Cells % 0.0 Immature Granulocytes # 0.040 H Neutrophils # 5.9 Lymphocytes # 0.9 Monocytes # 1.7 H Eosinophils # 0.1 Basophils # 0.0 Nucleated Red Blood Cells # 0.0 Sodium Level 140 Potassium Level 2.9 *L Chloride Level 106 Carbon Dioxide Level 26 Anion Gap 8 Blood Urea Nitrogen 7 Creatinine 0.67 Est Glomerular Filtrat Rate mL/min > 60 Glucose Level 110 Calcium Level 8.7 Phosphorus Level 1.7 L Magnesium Level 1.4 L Total Bilirubin 0.9 Direct Bilirubin 0.00 Indirect Bilirubin 0.9 Aspartate Amino Transf (AST/SGOT) 67 H Alanine Aminotransferase (ALT/SGPT) 43 Alkaline Phosphatase 49 Total Protein 5.6 L Albumin 2.9 L Exam/Review of Systems Exam Vitals Vital Signs Date Temp Pulse Resp B/P (MAP) Pulse Ox O2 O2 Flow FiO2 Time Delivery Rate 02/05/19 98.6 110 18 147/95 96 08:00 (112) 02/04/19 Room Air 14:19 Intake and Output 02/04/19 02/04/19 02/05/19 1515:00 23:00 07:00 IntakeIntake Total 1025 ml 1411.2 ml 720 ml BalanceBalance 1025 ml 1411.2 ml 720 ml Results Results 24hrs Laboratory Tests Test 02/05/19 06:10 White Blood Count 8.7 Red Blood Count 3.33 L Hemoglobin 11.2 L Hematocrit 32.6 L Mean Corpuscular Volume 97.9 Mean Corpuscular Hemoglobin 33.6 H Mean Corpuscular Hemoglobin Concent 34.4 Red Cell Distribution Width 12.7 Platelet Count 157 # Mean Platelet Volume 10.9 H Immature Granulocytes % 0.500 H Neutrophils % 68.2 Lymphocytes % 10.4 L Monocytes % 19.1 H Eosinophils % 1.5 Basophils % 0.3 Nucleated Red Blood Cells % 0.0 Immature Granulocytes # 0.040 H Neutrophils # 5.9 Lymphocytes # 0.9 Monocytes # 1.7 H Eosinophils # 0.1 Basophils # 0.0 Nucleated Red Blood Cells # 0.0 Sodium Level 140 Potassium Level 2.9 *L Chloride Level 106 Carbon Dioxide Level 26 Anion Gap 8 Blood Urea Nitrogen 7 Creatinine 0.67 Est Glomerular Filtrat Rate mL/min > 60 Glucose Level 110 Calcium Level 8.7 Phosphorus Level 1.7 L Magnesium Level 1.4 L Total Bilirubin 0.9 Direct Bilirubin 0.00 Indirect Bilirubin 0.9 Aspartate Amino Transf (AST/SGOT) 67 H Alanine Aminotransferase (ALT/SGPT) 43 Alkaline Phosphatase 49 Total Protein 5.6 L Albumin 2.9 L Medications Medication Current Medications IV Flush (NS 3 ml) 3 ml PER PROTOCOL IV ; Start 02/01/19 at 16:00 Ondansetron HCl (Zofran Inj) 4 mg Q6H PRN IV NAUSEA/VOMITING; Start 02/01/19 at 16:00 Acetaminophen (Tylenol Tab) 650 mg Q6H PRN PO .PAIN 1-3 OR TEMP Last administered on 02/04/19at 12:44; Admin Dose 650 MG; Start 02/01/19 at 16:00 Acetaminophen/ Hydrocodone Bitart ([place] (5/325)) 1 tab Q6H PRN PO .MOD PAIN 4- 6 Last administered on 02/04/19at 18:32; Admin Dose 1 TAB; Start 02/01/19 at 16:00 Morphine Sulfate (morphine) 2 mg Q4H PRN IV .SEVERE PAIN 7-10; Start 02/01/19 at 16:00 Docusate Sodium (Colace) 100 mg Q12H PRN PO .CONSTIPATION; Start 02/01/19 at 16:00 Magnesium Hydroxide (Milk Of Mag) 30 ml DAILY PRN PO .CONSTIPATION; Start 02/01/19 at 16:00 Pantoprazole (Protonix Tab) 40 mg DAILY@06 PO Last administered on 02/05/19at 05:29; Admin Dose 40 MG; Start 02/02/19 at 06:00 Lorazepam (Ativan) 1 mg Q1H PRN IV CONTROL WITHDRAWAL SYMPTOMS Last administered on 02/05/19at 08:16; Admin Dose 1 MG; Start 02/01/19 at 16:00 Albuterol/ Ipratropium (Duoneb) 3 ml Q4H RESP THERAPY PRN HHN SHORTNESS OF BREATH; Start 02/01/19 at 16:00 Hydralazine HCl (Apresoline) 10 mg Q6H PRN IV ELEVATED BLOOD PRESSURE; Start 02/01/19 at 16:00 Nitroglycerin (Nitroglycerin (Sl Tab) 0.4 Mg) 1 tab Q5M PRN SL ANGINA; Start 02/01/19 at 16:00 Multivitamins 10 ml/Thiamine HCl 100 mg/Folic Acid 1 mg/Sodium Chloride 1,011.2 ml @ 125 mls/ hr DAILY@09 IVPB Last administered on 02/05/19at 08:16; Admin Dose 125 MLS/HR; Start 02/02/19 at 09:00 Chlordiazepoxide (Librium) 50 mg TID PO Last administered on 02/05/19at 08:16; Admin Dose 50 MG; Start 02/01/19 at 16:00 Thiamine HCl (Vitamin B1) 50 mg DAILY PO Last administered on 02/05/19at 08:16; Admin Dose 50 MG; Start 02/01/19 at 20:30 Potassium Chloride 100 ml @ 50 mls/hr Q2H IVPB Last administered on 02/05/19at 09:44; Admin Dose 50 MLS/HR; Start 02/05/19 at 08:30; Stop 02/05/19 at 14:29 Potassium Chloride 50 ml @ 25 mls/hr Q2H IVPB ; Start 02/05/19 at 10:30; Stop 02/05/19 at 18:29; Status UNV Magnesium Sulfate 3 gm/Dextrose 106 ml @ 35.333 mls/ hr ONCE ONCE IVPB ; Start 02/05/19 at 10:30; Stop 02/05/19 at 13:29; Status UNV SUSAN SPRING Feb 05, 2019 10:09
[2019-02-05] MEDS ORDERED: POTASSIUM CHLORIDE 50 ML IVPB SCH (10:30)
[2019-02-05] MEDS ORDERED: MAGNESIUM SULFATE 3 GM in DEXTROSE 5% 100 ML IVPB ONE (11:00)
[2019-02-05 17:00] VITALS: BP 130/62; PULSE 84; RESP 20
[2019-02-05 20:24] VITALS: BP 132/87; PULSE 67; RESP 18
[2019-02-06] MEDS: LORAZEPAM 2 MG INJ IV PRN ×4 (01:00→13:21)
[2019-02-06 02:00] VITALS: BP 119/84; PULSE 81; RESP 18
[2019-02-06] MEDS: PANTOPRAZOLE (EC) 40 MG TAB PO SCH (05:58)
[2019-02-06 08:21] VITALS: BP 114/81; PULSE 82; RESP 18
[2019-02-06] MEDS: POTASSIUM CHLORIDE 100 ML IVPB SCH ×3 (08:38→13:24)
[2019-02-06] MEDS: MULTIVITAMINS 10 ML, THIAMINE 100 MG, FOLIC ACID 1 MG in SOD CHLORIDE 0.9% 1,000 ML IVPB SCH (08:38)
[2019-02-06] MEDS: THIAMINE 100 MG TAB PO SCH (08:39)
[2019-02-06] MEDS: CHLORDIAZEPOXIDE 25 MG CAP PO SCH ×3 (08:39→21:38)
[2019-02-06] MEDS: ACETAMINOPHEN 325 MG TAB PO PRN (12:44)
[2019-02-06 17:01] VITALS: BP 125/89; PULSE 69; RESP 16
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
[2019-02-06 20:00] VITALS: BP 118/75; PULSE 62; RESP 18
[2019-02-07 02:00] VITALS: BP 163/74; PULSE 78; RESP 20
[2019-02-07] MEDS: PANTOPRAZOLE (EC) 40 MG TAB PO SCH (05:58)
[2019-02-07] MEDS: HYDROCODONE/APAP (5/325) TAB PO PRN ×2 (06:51→18:09)
[2019-02-07 08:59] VITALS: BP 136/94; PULSE 76; RESP 16
[2019-02-07] MEDS: THIAMINE 100 MG TAB PO SCH (09:29)
[2019-02-07] MEDS: MULTIVITAMINS 10 ML, THIAMINE 100 MG, FOLIC ACID 1 MG in SOD CHLORIDE 0.9% 1,000 ML IVPB SCH (09:29)
[2019-02-07] MEDS: CHLORDIAZEPOXIDE 25 MG CAP PO SCH ×3 (09:29→21:25)
[2019-02-07] MEDS: ACETAMINOPHEN 325 MG TAB PO PRN (11:42)
[2019-02-07] MEDS ORDERED: POTASSIUM CHLORIDE (SR) 20 MEQ TAB PO STA (13:13)
--- NOTE | 2019-02-07 13:23 | PN ---
Date/Time of Note Date/Time of Note DATE: 02/07/19 TIME: 13:22 Assessment/Plan VTE Prophylaxis Risk score (from Ns)>0 risk: 4 SCD applied (from Ns): Yes Pharmacological prophylaxis: other Lines/Catheters IV Catheter Type (from Nrs): Saline Lock Urinary Cath still in place: No Assessment/Plan Hospital Course S: Patient having better appetite per nursing staff today. Still with weakness but less tremors. Overall slowly improving O: VS - see below PE: General: Lying in bed, presently sleeping HEENT: Atraumatic, normocephalic. The pupils are equal, round and reactive. Neck: Supple Lungs: Clear to oscillation bilaterally, no wheezes Heart: Normal S1-S2, Regular rhythm and rate. Abdomen: Soft , nontender, nondistended , bowel sounds are present. Extremities: Normal to inspection, no edema no cyanosis Neurologic: No focal deficits A/P: 63-year-old male with a past medical history of significant alcohol abuse, who was brought in for signs of alcohol withdrawal after quitting drinking 5 days prior to admission. # ETOH withdrawal: Slowly improving, again patient initially presented with significant tremors and signs of severe withdrawal. - continue daily banana bag, he did receive thiamine earlier as there was concern of Wernicke's encephalopathy, social media editor also met with patient and family and provided resources -We will taper down his Librium to 25 mg mg 3 times daily, continue 1 mg IV Ativan every 30 minutes as needed - Continue OT and physical therapy - Replete low electrolytes again today #GI prophylaxis: PPI Dispo: Patient refusing SNF placement, will try for ARU eval in the next 1 to 2 days. Result Diagram: 02/07/1912 02/07/19 0512 Results 24hrs Laboratory Tests Test 02/07/19 05:12 White Blood Count 6.0 Red Blood Count 3.49 L Hemoglobin 11.3 L Hematocrit 34.9 L Mean Corpuscular Volume 100.0 Mean Corpuscular Hemoglobin 32.4 Mean Corpuscular Hemoglobin Concent 32.4 Red Cell Distribution Width 13.2 Platelet Count 239 # Mean Platelet Volume 10.8 H Immature Granulocytes % 0.500 H Neutrophils % Lymphocytes % Monocytes % Eosinophils % Basophils % Nucleated Red Blood Cells % 0.0 Immature Granulocytes # 0.030 Neutrophils # Lymphocytes # Monocytes # Eosinophils # Basophils # Nucleated Red Blood Cells # Sodium Level 141 Potassium Level 3.3 L Chloride Level 108 Carbon Dioxide Level 26 Anion Gap 7 Blood Urea Nitrogen 3 L Creatinine 0.59 L Est Glomerular Filtrat Rate mL/min > 60 Glucose Level 106 Calcium Level 8.7 Phosphorus Level 2.6 Magnesium Level 1.6 L Exam/Review of Systems Exam Vitals Vital Signs Date Temp Pulse Resp B/P (MAP) Pulse Ox O2 O2 Flow FiO2 Time Delivery Rate 02/07/19 98.0 76 16 136/94 98 Room Air 08:59 (108) Intake and Output 02/06/19 02/06/19 02/07/19 1515:00 23:00 07:00 IntakeIntake Total 250 ml 1351.2 ml 480 ml BalanceBalance 250 ml 1351.2 ml 480 ml Results Results 24hrs Laboratory Tests Test 02/07/19 05:12 White Blood Count 6.0 Red Blood Count 3.49 L Hemoglobin 11.3 L Hematocrit 34.9 L Mean Corpuscular Volume 100.0 Mean Corpuscular Hemoglobin 32.4 Mean Corpuscular Hemoglobin Concent 32.4 Red Cell Distribution Width 13.2 Platelet Count 239 # Mean Platelet Volume 10.8 H Immature Granulocytes % 0.500 H Neutrophils % Lymphocytes % Monocytes % Eosinophils % Basophils % Nucleated Red Blood Cells % 0.0 Immature Granulocytes # 0.030 Neutrophils # Lymphocytes # Monocytes # Eosinophils # Basophils # Nucleated Red Blood Cells # Sodium Level 141 Potassium Level 3.3 L Chloride Level 108 Carbon Dioxide Level 26 Anion Gap 7 Blood Urea Nitrogen 3 L Creatinine 0.59 L Est Glomerular Filtrat Rate mL/min > 60 Glucose Level 106 Calcium Level 8.7 Phosphorus Level 2.6 Magnesium Level 1.6 L Medications Medication Current Medications IV Flush (NS 3 ml) 3 ml PER PROTOCOL IV ; Start 02/01/19 at 16:00 Ondansetron HCl (Zofran Inj) 4 mg Q6H PRN IV NAUSEA/VOMITING; Start 02/01/19 at 16:00 Acetaminophen (Tylenol Tab) 650 mg Q6H PRN PO .PAIN 1-3 OR TEMP Last administered on 02/07/19at 11:42; Admin Dose 650 MG; Start 02/01/19 at 16:00 Acetaminophen/ Hydrocodone Bitart ([place] (5/325)) 1 tab Q6H PRN PO .MOD PAIN 4- 6 Last administered on 02/07/19 06:51; Admin Dose 1 TAB; Start 02/01/19 at 16:00 Morphine Sulfate (morphine) 2 mg Q4H PRN IV .SEVERE PAIN 7-10 Last administered on 02/05/19at 21:14; Admin Dose 2 MG; Start 02/01/19 at 16:00 Docusate Sodium (Colace) 100 mg Q12H PRN PO .CONSTIPATION; Start 02/01/19 at 16:00 Magnesium Hydroxide (Milk Of Mag) 30 ml DAILY PRN PO .CONSTIPATION; Start 02/01/19 at 16:00 Pantoprazole (Protonix Tab) 40 mg DAILY@06 PO Last administered on 02/07/19 05:58; Admin Dose 40 MG; Start 02/02/19 at 06:00 Lorazepam (Ativan) 1 mg Q1H PRN IV CONTROL WITHDRAWAL SYMPTOMS Last administered on 02/06/19 13:21; Admin Dose 1 MG; Start 02/01/19 at 16:00 Albuterol/ Ipratropium (Duoneb) 3 ml Q4H RESP THERAPY PRN HHN SHORTNESS OF BREATH; Start 02/01/19 at 16:00 Hydralazine HCl (Apresoline) 10 mg Q6H PRN IV ELEVATED BLOOD PRESSURE; Start 02/01/19 at 16:00 Nitroglycerin (Nitroglycerin (Sl Tab) 0.4 Mg) 1 tab Q5M PRN SL ANGINA; Start 02/01/19 at 16:00 Multivitamins 10 ml/Thiamine HCl 100 mg/Folic Acid 1 mg/Sodium Chloride 1,011.2 ml @ 125 mls/ hr DAILY@09 IVPB Last administered on 02/07/19 09:29; Admin Dose 125 MLS/HR; Start 02/02/19 at 09:00 Thiamine HCl (Vitamin B1) 50 mg DAILY PO Last administered on 02/07/19 09:29; Admin Dose 50 MG; Start 02/01/19 at 20:30 Chlordiazepoxide (Librium) 25 mg TID PO Last administered on 02/07/19 09:29; Admin Dose 25 MG; Start 02/07/19 at 09:00 Magnesium Sulfate 50 ml @ 25 mls/hr ONCE ONCE IVPB ; Start 02/07/19 at 14:30; Stop 02/07/19 at 16:29 SUSAN SPRING Feb 07, 2019 13:23
[2019-02-07] MEDS ORDERED: MAGNESIUM SULFATE 2 GM/50 ML 50 ML IVPB ONE (14:30)
[2019-02-07 15:09] VITALS: BP 144/95; PULSE 99; RESP 20
[2019-02-07 20:00] VITALS: BP 131/85; PULSE 77; RESP 18
[2019-02-08 02:00] VITALS: BP 123/69; PULSE 71; RESP 16
[2019-02-08] MEDS: HYDROCODONE/APAP (5/325) TAB PO PRN ×2 (03:37→20:00)
[2019-02-08] MEDS: PANTOPRAZOLE (EC) 40 MG TAB PO SCH (05:53)
[2019-02-08 08:06] VITALS: BP 103/89; PULSE 73
[2019-02-08] MEDS: CHLORDIAZEPOXIDE 25 MG CAP PO SCH (08:15)
[2019-02-08] MEDS: THIAMINE 100 MG TAB PO SCH (08:16)
[2019-02-08] MEDS: MULTIVITAMINS 10 ML, THIAMINE 100 MG, FOLIC ACID 1 MG in SOD CHLORIDE 0.9% 1,000 ML IVPB SCH (09:37)
[2019-02-08 14:48] VITALS: BP 137/82; PULSE 68; RESP 18
--- NOTE | 2019-02-08 15:36 | PN ---
Date/Time of Note Date/Time of Note DATE: 02/08/19 TIME: 15:35 Assessment/Plan VTE Prophylaxis Risk score (from Ns)>0 risk: 3 SCD applied (from Ns): Yes Pharmacological prophylaxis: NA/contraindicated Pharm contraindication: low risk/ambulating Lines/Catheters IV [facility]from [facility] Saline Lock Urinary Cath still in place: No Assessment/Plan Assessment/Plan 63-year-old male with a past medical history of significant alcohol abuse, who was brought in for signs of alcohol withdrawal after quitting drinking 5 days prior to admission. # ETOH withdrawal: Slowly improving, again patient initially presented with significant tremors and signs of severe withdrawal. - continue daily banana bag, he did receive thiamine earlier as there was concern of Wernicke's encephalopathy, social work associate also met with patient and family and provided resources - Librium taper completed. - continue 1 mg IV Ativan every 30 minutes as needed - Continue OT and physical therapy - Replete low electrolytes again today #GI prophylaxis: PPI Dispo: Patient refusing SNF placement, will try for ARU eval in the next 1 to 2 days. Result Diagram: 02/08/19 0552 02/08/19 0552 Subjective 24 Hr Interval Summary Free Text/Dictation No acute overnight events. Patient still fatigued; poor appetite. Exam/Review of Systems Exam Vitals Vital Signs Date Temp Pulse Resp B/P (MAP) Pulse Ox O2 O2 Flow FiO2 Time Delivery Rate 02/08/19 98.2 68 18 137/82 100 Room Air 14:48 (100) Intake and Output 02/07/19 02/07/19 02/08/19 1515:00 23:00 07:00 IntakeIntake Total 600 ml 1586.2 ml 120 ml OutputOutput Total 200 ml BalanceBalance 400 ml 1586.2 ml 120 ml Exam General: Lying in bed, awake and alert. HEENT: Atraumatic, normocephalic. The pupils are equal, round and reactive. Neck: Supple Lungs: Clear to oscillation bilaterally, no wheezes Heart: Normal S1-S2, Regular rhythm and rate. Abdomen: Soft , nontender, nondistended , bowel sounds are present. Extremities: Normal to inspection, no edema no cyanosis Neuro: Very mild tongue fasciculation. Results Results 24hrs Laboratory Tests Test 02/08/19 05:52 White Blood Count 5.3 Red Blood Count 3.30 L Hemoglobin 10.9 L Hematocrit 33.2 L Mean Corpuscular Volume 100.6 Mean Corpuscular Hemoglobin 33.0 Mean Corpuscular Hemoglobin Concent 32.8 Red Cell Distribution Width 13.2 Platelet Count 236 Mean Platelet Volume 10.8 H Immature Granulocytes % 0.600 H Neutrophils % 50.4 Lymphocytes % 19.7 Monocytes % 25.9 H Eosinophils % 2.8 Basophils % 0.6 Nucleated Red Blood Cells % 0.0 Immature Granulocytes # 0.030 Neutrophils # 2.7 Lymphocytes # 1.0 Monocytes # 1.4 H Eosinophils # 0.2 Basophils # 0.0 Nucleated Red Blood Cells # 0.0 Sodium Level 142 Potassium Level 3.7 Chloride Level 107 Carbon Dioxide Level 30 Anion Gap 5 Blood Urea Nitrogen 6 L Creatinine 0.60 L Est Glomerular Filtrat Rate mL/min > 60 Glucose Level 97 Calcium Level 8.4 Medications Medication Current Medications IV Flush (NS 3 ml) 3 ml PER PROTOCOL IV ; Start 02/01/19 at 16:00 Ondansetron HCl (Zofran Inj) 4 mg Q6H PRN IV NAUSEA/VOMITING; Start 02/01/19 at 16:00 Acetaminophen (Tylenol Tab) 650 mg Q6H PRN PO .PAIN 1-3 OR TEMP Last administered on 02/07/19at 11:42; Admin Dose 650 MG; Start 02/01/19 at 16:00 Acetaminophen/ Hydrocodone Bitart ([place] (5/325)) 1 tab Q6H PRN PO .MOD PAIN 4- 6 Last administered on 02/08/19at 03:37; Admin Dose 1 TAB; Start 02/01/19 at 16:00 Morphine Sulfate (morphine) 2 mg Q4H PRN IV .SEVERE PAIN 7-10 Last administered on 02/05/19at 21:14; Admin Dose 2 MG; Start 02/01/19 at 16:00 Docusate Sodium (Colace) 100 mg Q12H PRN PO .CONSTIPATION; Start 02/01/19 at 16:00 Magnesium Hydroxide (Milk Of Mag) 30 ml DAILY PRN PO .CONSTIPATION; Start 02/01/19 at 16:00 Pantoprazole (Protonix Tab) 40 mg DAILY@06 PO Last administered on 02/08/19at 05:53; Admin Dose 40 MG; Start 02/02/19 at 06:00 Lorazepam (Ativan) 1 mg Q1H PRN IV CONTROL WITHDRAWAL SYMPTOMS Last administered on 02/06/19at 13:21; Admin Dose 1 MG; Start 02/01/19 at 16:00 Albuterol/ Ipratropium (Duoneb) 3 ml Q4H RESP THERAPY PRN HHN SHORTNESS OF BREATH; Start 02/01/19 at 16:00 Hydralazine HCl (Apresoline) 10 mg Q6H PRN IV ELEVATED BLOOD PRESSURE; Start 02/01/19 at 16:00 Nitroglycerin (Nitroglycerin (Sl Tab) 0.4 Mg) 1 tab Q5M PRN SL ANGINA; Start at 16:00 Thiamine HCl (Vitamin B1) 50 mg DAILY PO Last administered on 02/08/19at 08:16; Admin Dose 50 MG; Start 02/01/19 at 20:30 LINDA RICE MD Feb 08, 2019 15:36
[2019-02-08 20:54] VITALS: BP 142/91; PULSE 75; RESP 18
[2019-02-09 02:00] VITALS: BP 139/85; PULSE 69; RESP 17
[2019-02-09] MEDS: PANTOPRAZOLE (EC) 40 MG TAB PO SCH (06:18)
[2019-02-09 07:55] VITALS: BP 146/93; PULSE 74; RESP 18
[2019-02-09] MEDS: THIAMINE 100 MG TAB PO SCH (08:55)
[2019-02-09] MEDS: ACETAMINOPHEN 325 MG TAB PO PRN ×2 (11:21→22:31)
[2019-02-09 14:25] VITALS: BP 115/84; PULSE 71; RESP 18
--- NOTE | 2019-02-09 16:30 | PN ---
Date/Time of Note Date/Time of Note DATE: 02/09/19 TIME: 16:28 Assessment/Plan VTE Prophylaxis Risk score (from Ns)>0 risk: 3 SCD applied (from Ns): Yes Pharmacological prophylaxis: NA/contraindicated Pharm contraindication: low risk/ambulating Lines/Catheters IV C[facility]ter Type (from [facility]): Saline Lock Urinary Cath still in place: No Assessment/Plan Assessment/Plan 63-year-old male with a past medical history of significant alcohol abuse, who was brought in for signs of alcohol withdrawal after quitting drinking 5 days prior to admission. # ETOH withdrawal: Slowly improving, again patient initially presented with significant tremors and signs of severe withdrawal. - continue daily banana bag, he did receive thiamine earlier as there was concern of Wernicke's encephalopathy, dialysis social worker also met with patient and family and provided resources - Librium taper completed. - continue 1 mg IV Ativan every 30 minutes as needed - Continue OT and physical therapy - Replete low electrolytes again today #GI prophylaxis: PPI Dispo: Pending ARU placement. Result Diagram: 02/09/19 0532 02/09/19 0532 Subjective 24 Hr Interval Summary Free Text/Dictation No acute overnight events. Patient doing well. walking with physical therapy. Exam/Review of Systems Exam Vitals Vital Signs Date Temp Pulse Resp B/P (MAP) Pulse Ox O2 O2 Flow FiO2 Time Delivery Rate 02/09/19 98.2 71 18 115/84 97 Room Air 14:25 (94) Intake and Output 02/08/19 02/08/19 02/09/19 1515:00 23:00 07:00 IntakeIntake Total 1145 ml 800 ml OutputOutput Total 420 ml 400 ml 1000 ml BalanceBalance 725 ml 400 ml -1000 ml Exam General: Lying in bed, awake and alert. HEENT: Atraumatic, normocephalic. The pupils are equal, round and reactive. Neck: Supple Lungs: Clear to oscillation bilaterally, no wheezes Heart: Normal S1-S2, Regular rhythm and rate. Abdomen: Soft , nontender, nondistended , bowel sounds are present. Extremities: Normal to inspection, no edema no cyanosis Neuro: Very mild tongue fasciculation. Results Results 24hrs Laboratory Tests Test 02/09/19 05:32 02/09/19 09:37 White Blood Count 7.9 # Red Blood Count 3.40 L Hemoglobin 11.1 L Hematocrit 34.0 L Mean Corpuscular Volume 100.0 Mean Corpuscular Hemoglobin 32.6 Mean Corpuscular Hemoglobin Concent 32.6 Red Cell Distribution Width 13.2 Platelet Count 290 # Mean Platelet Volume 10.3 Immature Granulocytes % 0.500 H Neutrophils % 56.1 Lymphocytes % 16.3 Monocytes % 25.2 H Eosinophils % 1.3 Basophils % 0.6 Nucleated Red Blood Cells % 0.0 Immature Granulocytes # 0.040 H Neutrophils # 4.4 Lymphocytes # 1.3 Monocytes # 2.0 H Eosinophils # 0.1 Basophils # 0.1 Nucleated Red Blood Cells # 0.0 Sodium Level 143 Potassium Level 3.6 Chloride Level 105 Carbon Dioxide Level 31 Anion Gap 7 Blood Urea Nitrogen 6 L Creatinine 0.65 Est Glomerular Filtrat Rate mL/min > 60 Glucose Level 95 Calcium Level 8.9 Lab Scanned Report REFERENCE LAB Medications Medication Current Medications IV Flush (NS 3 ml) 3 ml PER PROTOCOL IV ; Start 02/01/19 at 16:00 Ondansetron HCl (Zofran Inj) 4 mg Q6H PRN IV NAUSEA/VOMITING; Start 02/01/19 at 16:00 Acetaminophen (Tylenol Tab) 650 mg Q6H PRN PO .PAIN 1-3 OR TEMP Last administered on 02/09/19at 11:21; Admin Dose 650 MG; Start 02/01/19 at 16:00 Acetaminophen/ Hydrocodone Bitart ([place] (5/325)) 1 tab Q6H PRN PO .MOD PAIN 4- 6 Last administered on 02/08/19at 20:00; Admin Dose 1 TAB; Start 02/01/19 at 16:00 Docusate Sodium (Colace) 100 mg Q12H PRN PO .CONSTIPATION; Start 02/01/19 at 16:00 Magnesium Hydroxide (Milk Of Mag) 30 ml DAILY PRN PO .CONSTIPATION; Start 02/01/19 at 16:00 Pantoprazole (Protonix Tab) 40 mg DAILY@06 PO Last administered on 02/09/19at 06:18; Admin Dose 40 MG; Start 02/02/19 at 06:00 Albuterol/ Ipratropium (Duoneb) 3 ml Q4H RESP THERAPY PRN HHN SHORTNESS OF BREATH; Start 02/01/19 at 16:00 Hydralazine HCl (Apresoline) 10 mg Q6H PRN IV ELEVATED BLOOD PRESSURE; Start 02/01/19 at 16:00 Nitroglycerin (Nitroglycerin (Sl Tab) 0.4 Mg) 1 tab Q5M PRN SL ANGINA; Start 02/01/19 at 16:00 Thiamine HCl (Vitamin B1) 50 mg DAILY PO Last administered on 02/09/19at 08:55; Admin Dose 50 MG; Start 02/01/19 at 20:30 LINDA RICE MD Feb 09, 2019 16:30
[2019-02-09 20:00] VITALS: BP 135/91; PULSE 69; RESP 18
[2019-02-10 02:00] VITALS: BP 136/94; PULSE 63; RESP 17
[2019-02-10] MEDS: PANTOPRAZOLE (EC) 40 MG TAB PO SCH (05:55)
[2019-02-10 07:35] VITALS: BP 138/98; PULSE 62; RESP 16
[2019-02-10] MEDS: THIAMINE 100 MG TAB PO SCH (08:42)
--- NOTE | 2019-02-10 13:33 | PN ---
Date/Time of Note Date/Time of Note DATE: 02/10/19 TIME: 13:31 Assessment/Plan VTE Prophylaxis Risk score (from Ns)>0 risk: 3 SCD applied (from Nsg): Yes Pharmacological prophylaxis: NA/contraindicated Pharm contraindication: low risk/ambulating Lines/Catheters IV Catheter Type (from Nrsg): Saline Lock Urinary Cath still in place: No Assessment/Plan Assessment/Plan 63-year-old male with a past medical history of significant alcohol abuse, who was brought in for signs of alcohol withdrawal after quitting drinking 5 days prior to admission. # ETOH withdrawal: - Resolved. No signs of symptoms of withdrawal 24 hours after last benzodiazepines. - Still fatigued and deconditioned. Continue daily physical therapy. #GI prophylaxis: PPI Dispo: Pending ARU placement. Result Diagram: 02/09/19 0532 02/09/19 0532 Subjective 24 Hr Interval Summary Free Text/Dictation No acute overnight events. Patient feeling well. Walked the [place] around 2E with help from physical therapy. Exam/Review of Systems Exam Vitals Vital Signs Date Temp Pulse Resp B/P (MAP) Pulse Ox O2 O2 Flow FiO2 Time Delivery Rate 02/10/19 98.4 62 16 138/98 97 Room Air 07:35 (111) Intake and Output 02/09/19 02/09/19 02/10/19 1515:00 23:00 07:00 IntakeIntake Total 720 ml 360 ml OutputOutput Total 150 ml 1200 ml BalanceBalance 570 ml 360 ml -1200 ml Exam General: Sitting up in bed eating lunch HEENT: Atraumatic, normocephalic. The pupils are equal, round and reactive. Neck: Supple Lungs: Clear to oscillation bilaterally, no wheezes Heart: Normal S1-S2, Regular rhythm and rate. Abdomen: Soft , nontender, nondistended , bowel sounds are present. Extremities: Normal to inspection, no edema no cyanosis Medications Medication Current Medications IV Flush (NS 3 ml) 3 ml PER PROTOCOL IV ; Start 02/01/19 at 16:00 Ondansetron HCl (Zofran Inj) 4 mg Q6H PRN IV NAUSEA/VOMITING; Start 02/01/19 at 16:00 Acetaminophen (Tylenol Tab) 650 mg Q6H PRN PO .PAIN 1-3 OR TEMP Last administered on 02/09/19at 22:31; Admin Dose 650 MG; Start 02/01/19 at 16:00 Acetaminophen/ Hydrocodone Bitart ([place] (5/325)) 1 tab Q6H PRN PO .MOD PAIN 4- 6 Last administered on 02/08/19at 20:00; Admin Dose 1 TAB; Start 02/01/19 at 16:00 Docusate Sodium (Colace) 100 mg Q12H PRN PO .CONSTIPATION; Start 02/01/19 at 16:00 Magnesium Hydroxide (Milk Of Mag) 30 ml DAILY PRN PO .CONSTIPATION; Start 02/01/19 at 16:00 Pantoprazole (Protonix Tab) 40 mg DAILY@06 PO Last administered on 02/10/19at 05:55; Admin Dose 40 MG; Start 02/02/19 at 06:00 Albuterol/ Ipratropium (Duoneb) 3 ml Q4H RESP THERAPY PRN HHN SHORTNESS OF BREATH; Start 02/01/19 at 16:00 Hydralazine HCl (Apresoline) 10 mg Q6H PRN IV ELEVATED BLOOD PRESSURE; Start 02/01/19 at 16:00 Nitroglycerin (Nitroglycerin (Sl Tab) 0.4 Mg) 1 tab Q5M PRN SL ANGINA; Start 02/01/19 at 16:00 Thiamine HCl (Vitamin B1) 50 mg DAILY PO Last administered on 02/10/19at 08:42; Admin Dose 50 MG; Start 02/01/19 at 20:30 LINDA RICE MD Feb 10, 2019 13:33
[2019-02-10 14:25] VITALS: BP 119/79; PULSE 85; RESP 16
[2019-02-10 20:00] VITALS: BP 120/84; PULSE 78; RESP 18
[2019-02-11 02:00] VITALS: BP 131/89; PULSE 79; RESP 20
[2019-02-11] MEDS: PANTOPRAZOLE (EC) 40 MG TAB PO SCH (06:00)
[2019-02-11 08:09] VITALS: BP 138/96; PULSE 76; RESP 20
[2019-02-11] MEDS: THIAMINE 100 MG TAB PO SCH (08:57)
[2019-02-11 14:52] VITALS: BP 105/66; PULSE 77; RESP 16
[2019-02-11] MEDS: HYDROCODONE/APAP (5/325) TAB PO PRN (15:13)
--- NOTE | 2019-02-11 17:08 | PN ---
Date/Time of Note Date/Time of Note DATE: 02/11/19 TIME: 17:07 Assessment/Plan VTE Prophylaxis Risk score (from Ns)>0 risk: 3 SCD applied (from Nsg): Yes Pharmacological prophylaxis: NA/contraindicated Pharm contraindication: low risk/ambulating Lines/Catheters IV Catheter Type (from Nrsg): Saline Lock Urinary Cath still in place: No Assessment/Plan Assessment/Plan 63-year-old male with a past medical history of significant alcohol abuse, who was brought in for signs of alcohol withdrawal after quitting drinking 5 days prior to admission. # ETOH withdrawal: - Resolved. No signs of symptoms of withdrawal 24 hours after last benzodiazepines. - Still fatigued and deconditioned. Continue daily physical therapy. #GI prophylaxis: PPI Dispo: Medically clear for discharge. Plan for ARU Result Diagram: 02/09/19 0502/09/19 05 Subjective 24 Hr Interval Summary Free Text/Dictation No acute overnight events. Patient much stronger. Shoulder feels better too. Exam/Review of Systems Exam Vitals Vital Signs Date Temp Pulse Resp B/P (MAP) Pulse Ox O2 O2 Flow FiO2 Time Delivery Rate 02/11/19 98.0 77 16 105/66 98 Room Air 14:52 (79) Intake and Output 02/10/19 02/10/19 02/11/19 1515:00 23:00 07:00 IntakeIntake Total 300 ml 400 ml OutputOutput Total 400 ml 550 ml 300 ml BalanceBalance -100 ml -150 ml -300 ml Exam General: Sitting up in bed eating lunch HEENT: Atraumatic, normocephalic. The pupils are equal, round and reactive. Neck: Supple Lungs: Clear to oscillation bilaterally, no wheezes Heart: Normal S1-S2, Regular rhythm and rate. Abdomen: Soft , nontender, nondistended , bowel sounds are present. Extremities: Normal to inspection, no edema no cyanosis Medications Medication Current Medications IV Flush (NS 3 ml) 3 ml PER PROTOCOL IV ; Start 02/01/19 at 16:00 Ondansetron HCl (Zofran Inj) 4 mg Q6H PRN IV NAUSEA/VOMITING; Start 02/01/19 at 16:00 Acetaminophen (Tylenol Tab) 650 mg Q6H PRN PO .PAIN 1-3 OR TEMP Last administered on 02/09/19at 22:31; Admin Dose 650 MG; Start 02/01/19 at 16:00 Acetaminophen/ Hydrocodone Bitart ([place] (5/325)) 1 tab Q6H PRN PO .MOD PAIN 4- 6 Last administered on 02/11/19at 15:13; Admin Dose 1 TAB; Start 02/01/19 at 16:00 Docusate Sodium (Colace) 100 mg Q12H PRN PO .CONSTIPATION; Start 02/01/19 at 16:00 Magnesium Hydroxide (Milk Of Mag) 30 ml DAILY PRN PO .CONSTIPATION; Start 02/01/19 at 16:00 Pantoprazole (Protonix Tab) 40 mg DAILY@06 PO Last administered on 02/11/19at 0 6:00; Admin Dose 40 MG; Start 02/02/19 at 06:00 Albuterol/ Ipratropium (Duoneb) 3 ml Q4H RESP THERAPY PRN HHN SHORTNESS OF BREATH; Start 02/01/19 at 16:00 Hydralazine HCl (Apresoline) 10 mg Q6H PRN IV ELEVATED BLOOD PRESSURE; Start 02/01/19 at 16:00 Nitroglycerin (Nitroglycerin (Sl Tab) 0.4 Mg) 1 tab Q5M PRN SL ANGINA; Start 02/01/19 at 16:00 Thiamine HCl (Vitamin B1) 50 mg DAILY PO Last administered on 02/11/19at 08:57; Admin Dose 50 MG; Start 02/01/19 at 20:30 LINDA RICE MD Feb 11, 2019 17:08
[2019-02-11 20:45] VITALS: BP 122/77; PULSE 76; RESP 18
[2019-02-12 02:37] VITALS: BP 140/84; PULSE 74; RESP 18
[2019-02-12] MEDS: PANTOPRAZOLE (EC) 40 MG TAB PO SCH (05:32)
[2019-02-12] MEDS: THIAMINE 100 MG TAB PO SCH (08:39)
[2019-02-12 09:38] VITALS: BP 132/91; PULSE 102; RESP 16
[2019-02-12 14:30] VITALS: BP 123/86; PULSE 82; RESP 16
--- NOTE | 2019-02-12 17:36 | DS ---
Date/Time of Note Date/Time of Note DATE: 02/12/19 TIME: 17:35 Discharge Summary Admission/Discharge Info Admit Date/Time Feb 01, 2019 at 15:14 Discharge Date/Time Feb 12, 2019 Discharge Diagnosis Alcohol withdrawal Patient Condition: Good Hx of Present Illness 63-year-old male with a past medical history of significant alcohol abuse, who was brought in for signs of alcohol withdrawal. Per ER, the patient reportedly last drink 1/5 of tequila approximately 4 days ago. The patient did have a shot of vodka this morning to see if it would help his alcohol withdrawal symptoms, but it did not. Patient has been tremulous and more shaky than normal. He does endorse nausea with a few episodes of nonbilious nonbloody vomiting. Patient also apparently has been falling more frequent over the last few days. He reportedly fell this morning and felt too weak to get up. The patient endorses generalized weakness but no focal deficits. He denies any weakness or numbness or tingling to the face or extremities. He did hit his head but denies any loss of consciousness. Denies any upper lower GI bleeding, chest pain, shortness of breath, headaches or blurry vision. He denies any neck or back pain. When he came in today he was found with elevated blood alcohol levels and was given thiamine and multivitamin. Hospital Course The patient was started on a librium taper which he completed. Weaned off PRN ativan. Given thiamine and multivitamins. Still very weak when walking with PT, plan to transfer to ARU. Home Meds Active Scripts Folic Acid/Multivits-Min/Lut (MULTI-VITAMIN GUMMIES) 1 Each Tab.chew, 1 EACH PO DAILY for 30 Days, TAB.CHEW Prov:SHARA QUINTERO MD 02/01/19 Thiamine* (Thiamine*) 50 Mg Tablet, 50 MG PO DAILY for 30 Days, TAB Prov:SHARA QUINTERO MD 02/01/19 Discontinued Scripts Ondansetron Hcl* (Zofran*) 8 Mg Tablet, 8 MG PO Q6H PRN for NAUSEA AND OR VOMITING, #20 TAB Prov:SHARA QUINTERO MD 02/01/19 Lorazepam* (Ativan*) 0.5 Mg Tablet, 0.5 MG PO Q8H PRN for CONTROL WITHDRAWAL SYMPTOMS, #10 TAB Prov:SHARA QUINTERO MD 02/01/19 Primary Care Provider Not On Staff Doctor Time spent on discharge: > 30 minutes LINDA RICE MD Feb 12, 2019 17:36
== END 2019-02-12 19:12 | DRG 897 ==
LOC: E/R 09:28 → PP2 15:14
PROVIDERS: ADMIT Hospitalist; ATTEND Internal Medicine
DX: F10.239 Alcohol dependence with withdrawal, unspecified (principal); K70.9 Alcoholic liver disease, unspecified; R29.6 Repeated falls
CPT/HCPCS: 70450; 80048; 80053; 80061; 80076; 80307; 81001; 83036; 83735; 84100; 84439; 84443; 85025; 87086; 96374; 96376; 97110; 97116; 97162; 97165; 97530; 97535; J2060; J2270; J3411; J3475; J3480; J7030

== ENCOUNTER 2019-02-12 17:23 | Inpatient (IN) | payer BC ==
[~2019-02-12] VITALS: Ht 182.9 cm; Wt 72.0 kg
[~2019-02-12 17:23] MED LIST: FOLI-50 PO; LORA-441 PO; ONDA8TAB9 PO; THIA50TA7 PO
[2019-02-12 20:00] VITALS: Ht 182.9 cm; Wt 72.0 kg
[2019-02-12] MEDS ORDERED: BISACODYL 10 MG SUPP PR PRN (20:30)
[2019-02-12] MEDS ORDERED: LACTULOSE 30ML CUP PO PRN (20:30)
[2019-02-12] MEDS ORDERED: MAGNESIUM HYDROXIDE 30ML CUP PO PRN (20:30)
[2019-02-12 21:00] VITALS: BP 131/78; PULSE 82; RESP 18
[2019-02-12] MEDS: DOCUSATE SODIUM 100 MG CAP PO SCH (22:04)
[2019-02-12] MEDS: SENNA TAB PO SCH (22:04)
[2019-02-13 02:00] VITALS: BP 128/72; PULSE 78; RESP 18
[2019-02-13] MEDS: ACETAMINOPHEN 325 MG TAB PO PRN ×2 (02:05→18:07)
[2019-02-13] MEDS ORDERED: PENDING SANTYL ORDER FOR WOUND CARE XX PRN (04:00)
[2019-02-13 07:30] VITALS: BP 123/92; PULSE 76; RESP 20
[2019-02-13] MEDS ORDERED: THIAMINE 100 MG TAB GTB SCH (09:00)
[2019-02-13] MEDS: DOCUSATE SODIUM 100 MG CAP PO SCH ×2 (09:30→20:40)
--- NOTE | 2019-02-13 09:45 | HP ---
Date/Time of Note Date/Time of Note DATE: 02/13/19 TIME: 09:41 Assessment/Plan VTE Prophylaxis Risk score (from Ns)>0 risk: 2 SCD applied (from Ns): No SCD contraindicated: low risk/ambulating Pharmacological prophylaxis: NA/contraindicated Pharm contraindication: low risk/ambulating Lines/Catheters [facility]from [facility] Saline Lock Assessment/Plan Assessment/Plan 63-year-old man with a past medical history of significant alcohol abuse, who was brought in for signs of alcohol withdrawal after quitting drinking 5 days prior to admission. # ETOH withdrawal: #Deconditioning - Resolved. No signs of symptoms of withdrawal. Last benzodiazepines were on 02/08 - Still fatigued and deconditioned. - Admit to ARU, rehab plan per PT and OT. #GI prophylaxis: PPI Result Diagram: 02/13/19 0745 02/13/19 0745 HPI/ROS Admit Date/Time Admit Date/Time Feb 12, 2019 at 19:41 Hx of Present Illness 63-year-old man with a past medical history of significant alcohol abuse, who was brought in to the ED on 02/01/19 for signs of alcohol withdrawal. Per ER, the patient reportedly last drink 1/5 of tequila approximately 4 days prior to admission. The patient did have a shot of vodka the morning of admission to see if it would help his alcohol withdrawal symptoms, but it did not. Patient has been tremulous and more shaky than normal. He did endorse nausea with a few episodes of nonbilious nonbloody vomiting. Patient also apparently has been falling more frequent over the last few days. He reportedly fell the morning of admission and felt too weak to get up. The patient endorses generalized weakness but no focal deficits. He denies any weakness or numbness or tingling to the face or extremities. He did hit his head but denies any loss of consciousness. Denies any upper lower GI bleeding, chest pain, shortness of breath, headaches or blurry vision. He denies any neck or back pain. When he came in today he was found with elevated blood alcohol levels and was given thiamine and multivitamin. The patient was admitted to med/surg. He was started on a librium taper which he completed. Weaned off PRN ativan. Given thiamine and multivitamins. Still very weak when walking with PT. On 02/12 the patient was transferred to ARU. ROS 12 point ROS reviewed, negative except per HPI. PMH/Family/Social Past Medical History Alcoholism Medications Current Medications Thiamine HCl (Vitamin B1) 50 mg DAILY GTB Last administered on 02/13/19at 09:30; Admin Dose 50 MG; Start 02/13/19 at 09:00 Docusate Sodium (Colace) 100 mg BID PO Last administered on 02/13/19at 09:30; Admin Dose 100 MG; Start 02/12/19 at 21:00 Senna (Senokot) 1 tab HS PO Last administered on 02/12/19at 22:04; Admin Dose 1 TAB; Start 02/12/19 at 21:00 Magnesium Hydroxide (Milk Of Mag) 30 ml BID PRN PO CONSTIPATION; Start 02/12/19 at 20:30 Lactulose (Enulose) 20 gm DAILY PRN PO CONSTIPATION; Start 02/12/19 at 20:30 Bisacodyl (Dulcolax Supp) 10 mg DAILY PRN [place] CONSTIPATION; Start 02/12/19 at 20:30 Acetaminophen (Tylenol Tab) 650 mg Q4H PRN PO PAIN Last administered on 02/13/19at 02:05; Admin Dose 650 MG; Start 02/12/19 at 20:30 Miscellaneous Information (Pending [facility] Order For Wound Care) This patient h a... PRN PRN XX WOUND CARE; Start 02/13/19 at 04:00 Coded Allergies: No Known Allergies (Verified Allergy, Mild, 02/01/19) Past Surgical History Arm surgery. Tonsil surgery. Past Surgical Hx: other Social History Alcohol Use: heavy Smoking Status: Never smoker Drug Use: none Exam/Review of Systems Vital Signs Vitals Vital Signs Date Temp Pulse Resp B/P (MAP) Pulse Ox O2 O2 Flow FiO2 Time Delivery Rate 02/13/19 97.7 76 20 123/92 98 Room Air 07:30 (102) Intake and Output 02/12/19 02/12/19 02/13/19 1414:59 22:59 06:59 IntakeIntake Total 200 ml 650 ml OutputOutput Total 100 ml 300 ml BalanceBalance 100 ml 350 ml Exam Exam General: Sitting in wheelchair about to take a shower. HEENT: Atraumatic, normocephalic. The pupils are equal, round and reactive. Neck: Supple Lungs: Clear to oscillation bilaterally, no wheezes Heart: Normal S1-S2, Regular rhythm and rate. Abdomen: Soft , nontender, nondistended , bowel sounds are present. Extremities: Normal to inspection, no edema no cyanosis LINDA RICE MD Feb 13, 2019 09:45
--- NOTE | 2019-02-13 11:20 | CONS ---
DATE OF ADMISSION: 02/12/2019 DATE OF CONSULTATION: REHABILITATION POST ADMISSION PHYSICIAN EVALUATION REHABILITATION IMPAIRMENT CATEGORY: 1. Encephalopathy, blunt head trauma. 2. Alcohol abuse. 3. Impairments in self-care and mobility. HISTORY OF PRESENT ILLNESS: The patient is a 64-year-old right-handed gentleman with a history of al cohol abuse who was admitted to [facility] with signs of alcohol withdra wal. The patient was weak, nauseous, vomiting and had been having increasing falls. He does report hitting his head but denies loss of consciousness. The patient was treated with thiamine for likely Wernicke's encephalopathy. The patient noted to have significant impairments in self-care and mobili ty and has been cleared to transfer to the rehabilitation unit for comprehensive interdisciplinary re hab care. FUNCTIONAL HISTORY: Prior to recent events, he was independent in self-care tasks and mobility. Cur rently, requires minimal assist for self-care and mobility tasks. FAMILY AND SOCIAL HISTORY: The patient reports living at home with roommates and hopes to return the re upon discharge. PAST MEDICAL HISTORY: 1. Left shoulder arthropathy. 2. Alcohol abuse. CURRENT MEDICATIONS: Thiamine 50 mg p.o. daily. ALLERGIES: THE PATIENT WITH NO KNOWN DRUG ALLERGIES. PHYSICAL EXAMINATION: VITAL SIGNS: He is currently afebrile with stable vital signs. HEENT: Reveals healing facial abrasion. Extraocular motion intact. Oropharynx clear. NECK: Supple. LUNGS: Clear anteriorly. CARDIAC: S1, S2. ABDOMEN: Soft, nontender, positive bowel sounds. NEUROLOGIC: He is awake and alert. He is oriented to person and hospital. He will follow simple 1- step commands. He demonstrates antigravity strength in bilateral upper extremity and lower extremity . He has impaired dynamic balance. PLAN: The patient has been admitted for comprehensive interdisciplinary acute rehab and is anticipat ed to tolerate 3 hours of daily therapy in divided doses for at least 5/7 days a week. The treatment plan will include: 1. Physical therapy to focus on bed mobility, transfers, and household ambulation with the goal of h aving the patient reach a standby assist level. 2. Occupational therapy to focus on hygiene, grooming, dressing, bathing, and toileting activities w ith the goal of having the patient reach standby assist level. 3. Rehabilitation nursing for carryover of therapeutic interventions, the goal of continent of bowel and bladder, and the goal of patient education with regard to the aforementioned issues. 4. Neuropsychology for full cognitive assessment and oversight of cognitive program with the goal of having the patient return to baseline cognition. Will have physical therapy and occupational therap y focus on functional cognitive tasks, such as path finding and self-care activities at a higher leve l. ESTIMATED LENGTH OF STAY: 7 days. DISPOSITION GOAL: Home with roommates in addition to providing patient with an alcohol abuse resourc es. INTERVENTION FOR BARRIER: Interdisciplinary approach. I acknowledge that I performed a full physical examination on this patient within 24 hours of admissi on to the rehabilitation unit, and believe the patient is a good candidate for comprehensive interdis ciplinary rehab care and is anticipated to make reasonable goals in a reasonable period of time as ou tlined above. Dictated By: DANO DODSON/NTS Conf#: [id number] DID#: [id number]
[2019-02-13] MEDS: MULTIVITAMINS/MINERALS TAB PO SCH (12:00)
[2019-02-13 14:00] VITALS: BP 120/77; PULSE 98; RESP 18
[2019-02-13 19:52] VITALS: BP 111/73; PULSE 90; RESP 20
[2019-02-13] MEDS: SENNA TAB PO SCH (20:40)
[2019-02-14 02:45] VITALS: BP 150/90; PULSE 84; RESP 19
[2019-02-14] MEDS: ACETAMINOPHEN 325 MG TAB PO PRN ×2 (04:06→16:37)
[2019-02-14 07:30] VITALS: BP 130/83; PULSE 85; RESP 18
[2019-02-14] MEDS: DOCUSATE SODIUM 100 MG CAP PO SCH ×2 (09:08→20:01)
[2019-02-14] MEDS: MULTIVITAMINS/MINERALS TAB PO SCH (09:08)
[2019-02-14] MEDS: THIAMINE 100 MG TAB PO SCH (09:08)
--- NOTE | 2019-02-14 11:47 | PN ---
Date/Time of Note Date/Time of Note DATE: 02/14/19 TIME: 11:42 Assessment/Plan VTE Prophylaxis Risk score (from Ns)>0 risk: 3 SCD applied (from Ns): Yes Pharmacological prophylaxis: NA/contraindicated Pharm contraindication: low risk/ambulating Lines/Catheters IV [facility] (from [facility] Saline Lock Assessment/Plan Hospital Course SUBJECTIVE: Patient is complaining of substernal chest discomfort. He also reports that he pulled his muscles. Patient also reports mild shortness of breath.He also has tremors bilateral hands. He does not report any palpitation, nausea, vomiting, abdominal pain, diaphoresis, dizziness or other constitutional symptoms. OBJECTIVE: Vital signs-see below PHYSICAL EXAM: Constitutional: Adequately built,not in acute distress. HEENT: Head atraumatic and normocephalic. Eyes: Extraocular muscles intact. Anicteric sclerae. Pupils equal bilaterally, reactive to light. NECK: Supple without lymph node. CHEST: Clear and good breath sounds equally. No wheezing. No rhonchi. HEART: S1, S2. Regular rate and rhythm. ABDOMEN: Soft/non tender with no rebound tenderness. Bowel sounds were present. EXTREMITIES: +Tremors. No cyanosis, clubbing or edema. NEUROLOGIC: Alert and oriented x3. No focal deficit. No sensory deficit. PSYCHOSOCIAL: No signs of depression. INTEGUMENTARY: No open wounds. ASSESSMENT AND PLAN:63-year-old man with a past medical history of significant alcohol abuse, who was brought in for signs of alcohol withdrawal after quitting drinking 5 days prior to admission. ETOH withdrawal: -pt still w/tremors/anxiety -Will resume Librium maintenance dose. -PRN Xanax Chest pain, muscular skeletal versus etoh related vs ACS -Serial troponin, EKG and a TTE in light of alcohol abuse -Aspirin 162 mg once. -Baclofen for muscle spasm Leukocytosis, likely reactive -No evidence to suggest any active infection. Deconditioning -rehab plan per PT and OT. DVT prophylaxis: SCDs/ambulation Patient was seen in collaboration with Dr. Johnson Result Diagram: 02/13/19 0745 02/13/19 0745 Exam/Review of Systems Exam Vitals Vital Signs Date Temp Pulse Resp B/P (MAP) Pulse Ox O2 O2 Flow FiO2 Time Delivery Rate 02/14/19 99.1 85 18 130/83 96 Room Air 07:30 (99) Intake and Output 02/13/19 02/13/19 02/14/19 1414:59 22:59 06:59 IntakeIntake Total 1180 ml OutputOutput Total 300 ml 600 ml BalanceBalance 880 ml -600 ml Medications Medication Current Medications Docusate Sodium (Colace) 100 mg BID PO Last administered on 02/14/19 09:08; Admin Dose 100 MG; Start 02/12/19 at 21:00 Senna (Senokot) 1 tab HS PO Last administered on 02/13/19at 20:40; Admin Dose 1 TAB; Start 02/12/19 at 21:00 Magnesium Hydroxide (Milk Of Mag) 30 ml BID PRN PO CONSTIPATION; Start 02/12/19 at 20:30 Lactulose (Enulose) 20 gm DAILY PRN PO CONSTIPATION; Start 02/12/19 at 20:30 Bisacodyl (Dulcolax Supp) 10 mg DAILY PRN [place] CONSTIPATION; Start 02/12/19 at 20:30 Acetaminophen (Tylenol Tab) 650 mg Q4H PRN PO PAIN Last administered on 02/14/19 04:06; Admin Dose 650 MG; Start 02/12/19 at 20:30 Miscellaneous Information (Pending [facility] Order For Wound Care) This patient orellana... PRN PRN XX WOUND CARE; Start 02/13/19 at 04:00 Multivitamins/ Minerals (Theragran-M) 1 tab DAILY PO Last administered on 02/14/19at 09:08; Admin Dose 1 TAB; Start 02/13/19 at 10:30 Thiamine HCl (Vitamin B1) 50 mg DAILY PO Last administered on 02/14/19at 09:08; Admin Dose 50 MG; Start 02/14/19 at 09:00 DONALD MURGUIA NP Feb 14, 2019 11:47
[2019-02-14] MEDS ORDERED: ASPIRIN 81 MG TAB PO ONE (12:00)
[2019-02-14] MEDS: ALPRAZOLAM 0.25 MG TAB PO PRN (12:21)
[2019-02-14] MEDS: BACLOFEN 10 MG TAB PO SCH ×2 (12:21→20:02)
[2019-02-14] MEDS: CHLORDIAZEPOXIDE 25 MG CAP PO SCH ×3 (12:26→20:02)
[2019-02-14 14:00] VITALS: BP 120/79; PULSE 105; RESP 18
[2019-02-14] MEDS: CEFTRIAXONE 1 GM/50 ML (PMX) 50 ML IVPB SCH (16:38)
[2019-02-14] MEDS: SENNA TAB PO SCH (20:01)
[2019-02-14 20:25] VITALS: BP 107/74; PULSE 82; RESP 18
[2019-02-15 02:00] VITALS: BP 143/92; PULSE 102; RESP 18
[2019-02-15 07:30] VITALS: BP 132/89; PULSE 93; RESP 20
[2019-02-15] MEDS: ACETAMINOPHEN 325 MG TAB PO PRN ×2 (08:30→12:32)
[2019-02-15] MEDS: THIAMINE 100 MG TAB PO SCH (08:30)
[2019-02-15] MEDS: CHLORDIAZEPOXIDE 25 MG CAP PO SCH ×3 (08:30→20:51)
[2019-02-15] MEDS: ALPRAZOLAM 0.25 MG TAB PO PRN (08:30)
[2019-02-15] MEDS: DOCUSATE SODIUM 100 MG CAP PO SCH ×2 (08:30→20:51)
[2019-02-15] MEDS: BACLOFEN 10 MG TAB PO SCH ×3 (08:30→20:51)
[2019-02-15] MEDS: MULTIVITAMINS/MINERALS TAB PO SCH (08:30)
--- NOTE | 2019-02-15 08:32 | CONS ---
Assessment/Plan Assessment/Plan Hospital Course (Demo Recall) Chest wall pain: Most likely musculoskeletal as he is in visible pain when he sits up or takes a deep breath. Doubt PE. EKG changes are likely movement artifact. Trops are negative. If echo is normal, no further testing. Alcohol abuse with withdrawal Deconditioning -f/u echo -pain control -could consider trial of NSAIDs but probably with a PPI considering his alcohol abuse history Consultation Date/Type/Reason Admit Date/Time Feb 12, 2019 at 19:41 Date of Consultation: Feb 15, 2019 Type of Consult Cardiology Reason for Consultation Chest pain Requesting Provider: DONALD MURGUIA NP Date/Time of Note DATE: 02/15/19 TIME: 08:26 Hx of Present Illness 64 yo M with a h/o alcohol abuse who was initially admitted for withdrawals and now is in ARU for rehab. He notes that two days ago he was doing some exercises and he believes he pulled a muscle. He has pain in his lower anterior chest which only occurs with deep breathing or when he bends his body forward. The pain does not occur with relaxed breathing or when he is flat. He is ambulating with PT and denies chest pain at that time. No prior cardiac history. Nonsmoker and no other medical history. Trops negative overnight. per HPI Past Medical History per hPI Home Meds Active Scripts Folic Acid/Multivits-Min/Lut (MULTI-VITAMIN GUMMIES) 1 Each Tab.chew, 1 EACH PO DAILY for 30 Days, TAB.CHEW Prov:SHARA QUINTERO MD 02/01/19 Thiamine* (Thiamine*) 50 Mg Tablet, 50 MG PO DAILY for 30 Days, TAB Prov:SHARA QUINTERO MD 02/01/19 Discontinued Scripts Ondansetron Hcl* (Zofran*) 8 Mg Tablet, 8 MG PO Q6H PRN for NAUSEA AND OR VOMITING, #20 TAB Prov:SHARA QUINTERO MD 02/01/19 Lorazepam* (Ativan*) 0.5 Mg Tablet, 0.5 MG PO Q8H PRN for CONTROL WITHDRAWAL SYMPTOMS, #10 TAB Prov:SHARA QUINTERO MD 02/01/19 Medications Current Medications Docusate Sodium (Colace) 100 mg BID PO Last administered on 02/14/19at 20:01; Admin Dose 100 MG; Start 02/12/19 at 21:00 Senna (Senokot) 1 tab HS PO Last administered on 02/14/19 20:01; Admin Dose 1 TAB; Start 02/12/19 at 21:00 Magnesium Hydroxide (Milk Of Mag) 30 ml BID PRN PO CONSTIPATION; Start 02/12/19 at 20:30 Lactulose (Enulose) 20 gm DAILY PRN PO CONSTIPATION; Start 02/12/19 at 20:30 Bisacodyl (Dulcolax Supp) 10 mg DAILY PRN SC CONSTIPATION; Start 02/12/19 at 20:30 Acetaminophen (Tylenol Tab) 650 mg Q4H PRN PO PAIN Last administered on 16:37; Admin Dose 650 MG; Start 02/12/19 at 20:30 Miscellaneous Information (Pending [facility] Order For Wound Care) This patient orellana... PRN PRN XX WOUND CARE; Start 02/13/19 at 04:00 Multivitamins/ Minerals (Theragran-M) 1 tab DAILY PO Last administered on 02/14/19 09:08; Admin Dose 1 TAB; Start 02/13/19 at 10:30 Thiamine HCl (Vitamin B1) 50 mg DAILY PO Last administered on 02/14/19 09:08; Admin Dose 50 MG; Start 02/14/19 at 09:00 Baclofen (Lioresal) 5 mg TID PO Last administered on 02/14/19 20:02; Admin Dose 5 MG; Start 02/14/19 at 13:00 Alprazolam (Xanax) 0.25 mg Q12H PRN PO ANXIETY Last administered on 02/14/19 12:21; Admin Dose 0.25 MG; Start 02/14/19 at 12:00 Chlordiazepoxide (Librium) 25 mg TID PO Last administered on 02/14/19 20:02; Admin Dose 25 MG; Start 02/14/19 at 13:00 Ceftriaxone Sodium 50 ml @ 100 mls/hr Q24H IVPB Last administered on 02/14/19 16:38; Admin Dose 100 MLS/HR; Start 02/14/19 at 16:00 Allergies: Coded Allergies: No Known Allergies (Verified Allergy, Mild, 02/01/19) Past Surgical History Past Surgical Hx: other Social History Alcohol Use: heavy Smoking Status: Never smoker Drug Use: none Exam/Review of Systems Vital Signs Vitals Vital Signs Date Temp Pulse Resp B/P (MAP) Pulse Ox O2 O2 Flow FiO2 Time Delivery Rate 02/15/19 97.9 102 18 143/92 96 Nasal 2.0 02:00 (109) Cannula Intake and Output 02/14/19 02/14/19 02/15/19 1515:00 23:00 07:00 IntakeIntake Total 200 ml 900 ml 250 ml OutputOutput Total 460 ml 800 ml BalanceBalance 200 ml 440 ml -550 ml Exam Constitutional: alert, oriented Psych: no complaints, nl mood/affect Head: normocephalic, atraumatic Neck: supple; No jvd Respiratory: clear to auscultation; No crackles/rales Cardiovascular: regular rate and rhythm; No edema, No systolic murmur Gastrointestinal: soft, non-tender; No distended Neurological: nl mental status, nl speech Labs Result Diagram: 02/14/19 1243 02/14/19 1243 Results 24hrs Laboratory Tests Test 02/14/19 12:43 02/14/19 18:10 02/14/19 23:50 White Blood Count 19.8 #H Red Blood Count 3.80 L Hemoglobin 12.4 L Hematocrit 37.2 L Mean Corpuscular Volume 97.9 Mean Corpuscular Hemoglobin 32.6 Mean Corpuscular Hemoglobin Concent 33.3 Red Cell Distribution Width 12.9 Platelet Count 438 H Mean Platelet Volume 10.5 H Immature Granulocytes % 0.800 H Neutrophils % 79.1 H Lymphocytes % 4.6 L Monocytes % 14.8 H Eosinophils % 0.2 Basophils % 0.5 Nucleated Red Blood Cells % 0.0 Immature Granulocytes # 0.150 H Neutrophils # 15.7 H Lymphocytes # 0.9 Monocytes # 2.9 H Eosinophils # 0.0 Basophils # 0.1 Nucleated Red Blood Cells # 0.0 Sodium Level 140 Potassium Level 3.8 Chloride Level 99 Carbon Dioxide Level 29 Anion Gap 12 Blood Urea Nitrogen 17 Creatinine 0.94 Est Glomerular Filtrat Rate mL/min > 60 Glucose Level 133 Calcium Level 9.5 Magnesium Level 1.5 L Creatine Kinase 61 51 43 Creatine Kinase Index 0.6 0.4 0.7 Creatinine Kinase MB (Mass) 0.37 < 0.22 0.32 Troponin I < 0.012 < 0.012 < 0.012 Medications Medications Current Medications Docusate Sodium (Colace) 100 mg BID PO Last administered on 02/14/19 20:01; Admin Dose 100 MG; Start 02/12/19 at 21:00 Senna (Senokot) 1 tab HS PO Last administered on 02/14/19 20:01; Admin Dose 1 TAB; Start 02/12/19 at 21:00 Magnesium Hydroxide (Milk Of Mag) 30 ml BID PRN PO CONSTIPATION; Start 02/12/19 at 20:30 Lactulose (Enulose) 20 gm DAILY PRN PO CONSTIPATION; Start 02/12/19 at 20:30 Bisacodyl (Dulcolax Supp) 10 mg DAILY PRN SC CONSTIPATION; Start 02/12/19 at 20:30 Acetaminophen (Tylenol Tab) 650 mg Q4H PRN PO PAIN Last administered on 02/14/19 16:37; Admin Dose 650 MG; Start 02/12/19 at 20:30 Miscellaneous Information (Pending [facility] Order For Wound Care) This patient orellana... PRN PRN XX WOUND CARE; Start 02/13/19 at 04:00 Multivitamins/ Minerals (Theragran-M) 1 tab DAILY PO Last administered on 02/14/19 09:08; Admin Dose 1 TAB; Start 02/13/19 at 10:30 Thiamine HCl (Vitamin B1) 50 mg DAILY PO Last administered on 02/14/19 09:08; Admin Dose 50 MG; Start 02/14/19 at 09:00 Baclofen (Lioresal) 5 mg TID PO Last administered on 02/14/19 20:02; Admin Dose 5 MG; Start 02/14/19 at 13:00 Alprazolam (Xanax) 0.25 mg Q12H PRN PO ANXIETY Last administered on 02/14/19 12:21; Admin Dose 0.25 MG; Start 02/14/19 at 12:00 Chlordiazepoxide (Librium) 25 mg TID PO Last administered on 02/14/19 20:02; Admin Dose 25 MG; Start 02/14/19 at 13:00 Ceftriaxone Sodium 50 ml @ 100 mls/hr Q24H IVPB Last administered on 02/14/19 16:38; Admin Dose 100 MLS/HR; Start 02/14/19 at 16:00 KOSHKARYAN,MAGGIE Feb 15, 2019 08:32
--- NOTE | 2019-02-15 09:57 | PN ---
Date/Time of Note Date/Time of Note DATE: 02/15/19 TIME: 09:55 Objective Vital Signs Date Temp Pulse Resp B/P (MAP) Pulse Ox O2 O2 Flow FiO2 Time Delivery Rate 02/15/19 98.0 09:15 02/15/19 93 20 132/89 97 Nasal 2.0 07:30 (103) Cannula Intake and Output 02/14/19 02/14/19 02/15/19 1515:00 23:00 07:00 IntakeIntake Total 200 ml 900 ml 250 ml OutputOutput Total 460 ml 800 ml BalanceBalance 200 ml 440 ml -550 ml Exam INTERDISCIPLINARY TEAM CONFERENCE Attended by PT, OT, ST, Power Shovel Engineer, Social Work, Rehabilitation Nursing, Media Professional and AssorterAirport Clerk Exam: Pulm-cta Abd-soft BOWEL- Cont BLADDER-Cont SKIN- improving OT- DRESSING-min BATHING-min TOILETING-min PT- BED MOBILITY-min TRANSFERS-mod AMBULATION-mod COGNITION- sba A/P- Interdisciplinary team conference held today. Please see interdisciplinary sheet. Working toward d.c. on 02/22 with post discharge follow up of physical therapy, occupational therapy. Results/Medications Result Diagram: 02/14/19 1243 02/14/19 1243 Results 24 hrs Laboratory Tests Test 02/14/19 12:43 02/14/19 18:10 02/14/19 23:50 White Blood Count 19.8 #H Red Blood Count 3.80 L Hemoglobin 12.4 L Hematocrit 37.2 L Mean Corpuscular Volume 97.9 Mean Corpuscular Hemoglobin 32.6 Mean Corpuscular Hemoglobin Concent 33.3 Red Cell Distribution Width 12.9 Platelet Count 438 H Mean Platelet Volume 10.5 H Immature Granulocytes % 0.800 H Neutrophils % 79.1 H Lymphocytes % 4.6 L Monocytes % 14.8 H Eosinophils % 0.2 Basophils % 0.5 Nucleated Red Blood Cells % 0.0 Immature Granulocytes # 0.150 H Neutrophils # 15.7 H Lymphocytes # 0.9 Monocytes # 2.9 H Eosinophils # 0.0 Basophils # 0.1 Nucleated Red Blood Cells # 0.0 Sodium Level 140 Potassium Level 3.8 Chloride Level 99 Carbon Dioxide Level 29 Anion Gap 12 Blood Urea Nitrogen 17 Creatinine 0.94 Est Glomerular Filtrat Rate mL/min > 60 Glucose Level 133 Calcium Level 9.5 Magnesium Level 1.5 L Creatine Kinase 61 51 43 Creatine Kinase Index 0.6 0.4 0.7 Creatinine Kinase MB (Mass) 0.37 < 0.22 0.32 Troponin I < 0.012 < 0.012 < 0.012 Medications Current Medications Docusate Sodium (Colace) 100 mg BID PO Last administered on 02/15/19 08:30; Admin Dose 100 MG; Start 02/12/19 at 21:00 Senna (Senokot) 1 tab HS PO Last administered on 02/14/19 20:01; Admin Dose 1 TAB; Start 02/12/19 at 21:00 Magnesium Hydroxide (Milk Of Mag) 30 ml BID PRN PO CONSTIPATION; Start 02/12/19 at 20:30 Lactulose (Enulose) 20 gm DAILY PRN PO CONSTIPATION; Start 02/12/19 at 20:30 Bisacodyl (Dulcolax Supp) 10 mg DAILY PRN [place] CONSTIPATION; Start 02/12/19 at 20:30 Acetaminophen (Tylenol Tab) 650 mg Q4H PRN PO PAIN Last administered on 02/15/19 08:30; Admin Dose 650 MG; Start 02/12/19 at 20:30 Miscellaneous Information (Pending [facility] Order For Wound Care) This patient orellana... PRN PRN XX WOUND CARE; Start 02/13/19 at 04:00 Multivitamins/ Minerals (Theragran-M) 1 tab DAILY PO Last administered on 02/15/19 08:30; Admin Dose 1 TAB; Start 02/13/19 at 10:30 Thiamine HCl (Vitamin B1) 50 mg DAILY PO Last administered on 02/15/19 08:30; Admin Dose 50 MG; Start 02/14/19 at 09:00 Baclofen (Lioresal) 5 mg TID PO Last administered on 02/15/19 08:30; Admin Dose 5 MG; Start 02/14/19 at 13:00 Alprazolam (Xanax) 0.25 mg Q12H PRN PO ANXIETY Last administered on 02/15/19 08:30; Admin Dose 0.25 MG; Start 02/14/19 at 12:00 Chlordiazepoxide (Librium) 25 mg TID PO Last administered on 02/15/19 08:30; Admin Dose 25 MG; Start 02/14/19 at 13:00 Ceftriaxone Sodium 50 ml @ 100 mls/hr Q24H IVPB Last administered on 02/14/19at 16:38; Admin Dose 100 MLS/HR; Start 02/14/19 at 16:00 DANO CARRERA MD Feb 15, 2019 09:57
--- NOTE | 2019-02-15 09:58 | RADRPT ---
Vent Rate: 107 bpm RR Interval: 564 msec MS Interval: 149 msec QRS Duration: 75 msec QT Interval: 322 msec QTC Interval: 429 msec P-R-T [place]: 63 - -43 - 64 degrees Sinus tachycardia...rate> 99 Left axis deviation...QRS axis (-30,-90) Borderline ST depression, anterior leads...ST <-0.07mV, V2-V4 Electronically Signed By: Roverto Pérez
--- NOTE | 2019-02-15 11:26 | PN ---
Date/Time of Note Date/Time of Note DATE: 02/15/19 TIME: 11:25 Assessment/Plan VTE Prophylaxis Risk score (from Ns)>0 risk: 3 SCD applied (from Ns): Yes Pharmacological prophylaxis: NA/contraindicated Pharm contraindication: low risk/ambulating Lines/Catheters IV [facility]from [facility] [place] Assessment/Plan Hospital Course SUBJECTIVE: No further chest pain. OBJECTIVE: Vital signs-see below PHYSICAL EXAM: Constitutional: Adequately built,not in acute distress. HEENT: Head atraumatic and normocephalic. Eyes: Extraocular muscles intact. Anicteric sclerae. Pupils equal bilaterally, reactive to light. NECK: Supple without lymph node. CHEST: Clear and good breath sounds equally. No wheezing. No rhonchi. HEART: S1, S2. Regular rate and rhythm. ABDOMEN: Soft/non tender with no rebound tenderness. Bowel sounds were present. EXTREMITIES: +Tremors. No cyanosis, clubbing or edema. NEUROLOGIC: Alert and oriented x3. No focal deficit. No sensory deficit. PSYCHOSOCIAL: No signs of depression. INTEGUMENTARY: No open wounds. ASSESSMENT AND PLAN:63-year-old man with a past medical history of significant alcohol abuse, who was brought in for signs of alcohol withdrawal after quitting drinking 5 days prior to admission. ETOH withdrawal: -Improving. Continue Librium maintenance dose. -PRN Xanax Chest pain, likely costochondritis -Appreciate cardiology follow-up. ACS ruled out. -Continue baclofen. Will also add low-dose NSAIDs with PPI Leukocytosis, likely reactive -No evidence to suggest any active infection. -WBC went up. Chest x-ray with no evidence of pneumonia. Follow-up blood cultures. -Continue empiric ceftriaxone Deconditioning -rehab plan per PT and OT. DVT prophylaxis: SCDs/ambulation Patient was seen in collaboration with Dr. Johnson Result Diagram: 02/14/19 1243 02/14/19 1243 Results 24hrs Laboratory Tests Test 02/14/19 12:43 02/14/19 18:10 02/14/19 23:50 White Blood Count 19.8 #H Red Blood Count 3.80 L Hemoglobin 12.4 L Hematocrit 37.2 L Mean Corpuscular Volume 97.9 Mean Corpuscular Hemoglobin 32.6 Mean Corpuscular Hemoglobin Concent 33.3 Red Cell Distribution Width 12.9 Platelet Count 438 H Mean Platelet Volume 10.5 H Immature Granulocytes % 0.800 H Neutrophils % 79.1 H Lymphocytes % 4.6 L Monocytes % 14.8 H Eosinophils % 0.2 Basophils % 0.5 Nucleated Red Blood Cells % 0.0 Immature Granulocytes # 0.150 H Neutrophils # 15.7 H Lymphocytes # 0.9 Monocytes # 2.9 H Eosinophils # 0.0 Basophils # 0.1 Nucleated Red Blood Cells # 0.0 Sodium Level 140 Potassium Level 3.8 Chloride Level 99 Carbon Dioxide Level 29 Anion Gap 12 Blood Urea Nitrogen 17 Creatinine 0.94 Est Glomerular Filtrat Rate mL/min > 60 Glucose Level 133 Calcium Level 9.5 Magnesium Level 1.5 L Creatine Kinase 61 51 43 Creatine Kinase Index 0.6 0.4 0.7 Creatinine Kinase MB (Mass) 0.37 < 0.22 0.32 Troponin I < 0.012 < 0.012 < 0.012 Exam/Review of Systems Exam Vitals Vital Signs Date Temp Pulse Resp B/P (MAP) Pulse Ox O2 O2 Flow FiO2 Time Delivery Rate 02/15/19 98.0 09:15 02/15/19 Nasal 2.0 09:15 Cannula 02/15/19 93 20 132/89 97 07:30 (103) Intake and Output 02/14/19 02/14/19 02/15/19 1515:00 23:00 07:00 IntakeIntake Total 200 ml 900 ml 250 ml OutputOutput Total 460 ml 800 ml BalanceBalance 200 ml 440 ml -550 ml Results Results 24hrs Laboratory Tests Test 02/14/19 12:43 02/14/19 18:10 02/14/19 23:50 White Blood Count 19.8 #H Red Blood Count 3.80 L Hemoglobin 12.4 L Hematocrit 37.2 L Mean Corpuscular Volume 97.9 Mean Corpuscular Hemoglobin 32.6 Mean Corpuscular Hemoglobin Concent 33.3 Red Cell Distribution Width 12.9 Platelet Count 438 H Mean Platelet Volume 10.5 H Immature Granulocytes % 0.800 H Neutrophils % 79.1 H Lymphocytes % 4.6 L Monocytes % 14.8 H Eosinophils % 0.2 Basophils % 0.5 Nucleated Red Blood Cells % 0.0 Immature Granulocytes # 0.150 H Neutrophils # 15.7 H Lymphocytes # 0.9 Monocytes # 2.9 H Eosinophils # 0.0 Basophils # 0.1 Nucleated Red Blood Cells # 0.0 Sodium Level 140 Potassium Level 3.8 Chloride Level 99 Carbon Dioxide Level 29 Anion Gap 12 Blood Urea Nitrogen 17 Creatinine 0.94 Est Glomerular Filtrat Rate mL/min > 60 Glucose Level 133 Calcium Level 9.5 Magnesium Level 1.5 L Creatine Kinase 61 51 43 Creatine Kinase Index 0.6 0.4 0.7 Creatinine Kinase MB (Mass) 0.37 < 0.22 0.32 Troponin I < 0.012 < 0.012 < 0.012 Medications Medication Current Medications Docusate Sodium (Colace) 100 mg BID PO Last administered on 02/15/19 08:30; Admin Dose 100 MG; Start 02/12/19 at 21:00 Senna (Senokot) 1 tab HS PO Last administered on 02/14/19at 20:01; Admin Dose 1 TAB; Start 02/12/19 at 21:00 Magnesium Hydroxide (Milk Of Mag) 30 ml BID PRN PO CONSTIPATION; Start 02/12/19 at 20:30 Lactulose (Enulose) 20 gm DAILY PRN PO CONSTIPATION; Start 02/12/19 at 20:30 Bisacodyl (Dulcolax Supp) 10 mg DAILY PRN MS CONSTIPATION; Start 02/12/19 at 20:30 Acetaminophen (Tylenol Tab) 650 mg Q4H PRN PO PAIN Last administered on 02/15/19 08:30; Admin Dose 650 MG; Start 02/12/19 at 20:30 Miscellaneous Information (Pending [facility] Order For Wound Care) This patient orellana... PRN PRN XX WOUND CARE; Start 02/13/19 at 04:00 Multivitamins/ Minerals (Theragran-M) 1 tab DAILY PO Last administered on 02/15/19 08:30; Admin Dose 1 TAB; Start 02/13/19 at 10:30 Thiamine HCl (Vitamin B1) 50 mg DAILY PO Last administered on 02/15/19 08:30; Admin Dose 50 MG; Start 02/14/19 at 09:00 Baclofen (Lioresal) 5 mg TID PO Last administered on 02/15/19 08:30; Admin Dose 5 MG; Start 02/14/19 at 13:00 Alprazolam (Xanax) 0.25 mg Q12H PRN PO ANXIETY Last administered on 02/15/19at 08:30; Admin Dose 0.25 MG; Start 02/14/19 at 12:00 Chlordiazepoxide (Librium) 25 mg TID PO Last administered on 02/15/19 08:30; A dmin Dose 25 MG; Start 02/14/19 at 13:00 Ceftriaxone Sodium 50 ml @ 100 mls/hr Q24H IVPB Last administered on 02/14/19at 16:38; Admin Dose 100 MLS/HR; Start 02/14/19 at 16:00 DONALD MURGUIA NP Feb 15, 2019 11:26
--- NOTE | 2019-02-15 11:38 | RADRPT ---
Echocardiogram Report Patient Name: AUTSIN PATELPatient ID: [id number] : 1955 (64y )Study Date: 02/15/2019 7:09:22 AM Gender: MAccession #: [id number] Tech: Shreya Avilez [facility] Location: 4421 Ref.Physician: DONALD MURGUIA Height(Cm): BSA: Weight(Kg): Quality: AdequateOrder Physician: DONALD MURGUIA Account #: Procedures: Echocardiographic Report: Transthoracic echocardiogram with complete 2D, M-Mode, and doppler examination. Indications: Evaluate Left Ventricular function. Measurements: 2D/M Mode Doppler Measurement Value Normal Range Measurement Value Normal Range LVIDd 2D 5.2 [ 4.2 - 5.8 ] cm AV Peak Justin 1.5 [ 100.0 - 170.0 ] cm/sec LVIDs 2D 3.3 [ 2.5 - 4.0 ] cm AV Peak PG 9.0 [ 2.0 - 9.0 ] mmHg LVPWd 2D 1.3 [ 0.6 - 1.0 ] cm LVOT Peak Justin 1.0 [ 70.0 - 110.0 ] cm/sec IVSd 2D 1.4 [ 0.6 - 1.0 ] cm LVOT Peak PG 4.0 [ 2.0 - 6.0 ] mmHg AoR Diam 2D 3.7 [ 2.6 - 3.4 ] cm MV E Peak Justin 0.5 [ 60.0 - 130.0 ] cm/sec EDV 2D 127.0 [ 62.0 - 150.0 ] ml MV A Peak Justin 0.9 [ 100.0 - 120.0 ] cm/sec ESV 2D 43.5 [ 21.0 - 61.0 ] ml MV E/A 0.6 [ 0.8 - 1.5 ] ratio EF 2D 65.7 [ 52.0 - 72.0 ] percent MV Decel Time 201 [ 104 - 258 ] msec LA Dimen 2D 3.9 [ 3.0 - 4.0 ] cm Lat E` Justin 0.1 [ 10.0 - 15.0 ] cm/sec Lateral E/E` 4.7 [ 1.0 - 2.0 ] ratio MV E/A 0.6 [ 0.8 - 1.5 ] ratio Findings: Left Ventricle: Normal left ventricular systolic function. Normal left ventricular cavity size. Normal left ventricular wall thickness. Ejection fraction is visually estimated at 60 %. Tissue Doppler/Mitral Doppler indices are within normal limits. Right Ventricle: Normal right ventricular size. Normal right ventricular systolic function. Left Atrium: The left atrium is normal in size. Right Atrium: The right atrium is normal in size. Mitral Valve: Normal appearance and function of the mitral valve with trace physiologic regurgitation. Aortic Valve: Normal appearance of the aortic valve. No significant aortic stenosis or insufficiency. Tricuspid Valve: Normal appearance of the tricuspid valve. Unable to obtain RVSP due to minimal presence of tricuspid regurgitation. Pulmonic Valve: Normal pulmonic valve appearance. Pericardium: Normal pericardium with no significant pericardial effusion. Aorta: Normal aortic root. IVC: Normal size and normal respiratory collapse consistent with normal right atrial pressure. Conclusions: Normal left ventricular systolic function. Normal left ventricular cavity size. Normal left ventricular wall thickness. Ejection fraction is visually estimated at 60 %. Tissue Doppler/Mitral Doppler indices are within normal limits. No significant valvular stenosis or regurgitation seen. Unable to obtain RVSP due to minimal presence of tricuspid regurgitation. Normal size and normal respiratory collapse consistent with normal right atrial pressure. Electronically Signed By: Ray Villa 2019-02-15 11:37:44 PDT
[2019-02-15 14:00] VITALS: BP 110/74; PULSE 105; RESP 18
[2019-02-15] MEDS: PANTOPRAZOLE (EC) 40 MG TAB PO SCH (17:35)
[2019-02-15] MEDS: CEFTRIAXONE 1 GM/50 ML (PMX) 50 ML IVPB SCH (17:35)
[2019-02-15 19:59] VITALS: BP 117/82; PULSE 91; RESP 18
[2019-02-15] MEDS: SENNA TAB PO SCH (20:51)
[2019-02-16 02:23] VITALS: BP 123/83; PULSE 95; RESP 18
[2019-02-16] MEDS: PANTOPRAZOLE (EC) 40 MG TAB PO SCH ×2 (05:33→17:01)
[2019-02-16 07:00] VITALS: BP 113/86; PULSE 103; RESP 18
[2019-02-16] MEDS: THIAMINE 100 MG TAB PO SCH (08:09)
[2019-02-16] MEDS: MULTIVITAMINS/MINERALS TAB PO SCH (08:09)
[2019-02-16] MEDS: CHLORDIAZEPOXIDE 25 MG CAP PO SCH ×3 (08:09→21:35)
[2019-02-16] MEDS: ACETAMINOPHEN 325 MG TAB PO PRN (08:09)
[2019-02-16] MEDS: BACLOFEN 10 MG TAB PO SCH ×3 (08:09→21:34)
[2019-02-16] MEDS: DOCUSATE SODIUM 100 MG CAP PO SCH ×2 (08:09→21:34)
[2019-02-16] MEDS: IBUPROFEN 400 MG TAB PO PRN (12:18)
--- NOTE | 2019-02-16 12:50 | CONS ---
Assessment/Plan Assessment/Plan Hospital Course (Demo Recall) Pleuritic chest pain: Initially more consistent with musculoskeletal but now migrating to left lower chest, febrile and with cough. Differential includes PE vs PNA. EF normal. I think less likely pericarditis as no rub, no effusion, and pain is better with laying flat. Fever/leukocytosis: ?PNA vs potentially from PE Alcohol abuse with withdrawal Deconditioning -chest CTA to eval for PE and will also r/o PNA that may not have been seen on CXR Consultation Date/Type/Reason Admit Date/Time Feb 12, 2019 at 19:41 Initial Consult Date 02/15/19 Type of Consult Cardiology Requesting Provider: DONALD MURGUIA NP Date/Time of Note DATE: 02/16/19 TIME: 12:47 24 HR Interval Summary Free Text/Dictation Still with pleuritic chest pain more on the left base now. Has a nonproductive cough. Febrile this am SOB mostly due to inability to take a deep breath Exam/Review of Systems Vital Signs Vitals Vital Signs Date Temp Pulse Resp B/P (MAP) Pulse Ox O2 O2 Flow FiO2 Time Delivery Rate 02/16/19 98.7 10:26 02/16/19 103 18 113/86 92 Room Air 07:00 (95) 02/15/19 2.0 19:58 Intake and Output 02/15/19 02/15/19 02/16/19 1515:00 23:00 07:00 IntakeIntake Total 200 ml 250 ml 200 ml OutputOutput Total 200 ml 850 ml BalanceBalance 200 ml 50 ml -650 ml Exam Constitutional: alert, oriented Psych: no complaints, nl mood/affect Head: normocephalic, atraumatic Neck: No jvd Respiratory: diminished breath sounds; No clear to auscultation Cardiovascular: regular rate and rhythm; No edema Gastrointestinal: soft, non-tender; No distended Neurological: nl mental status, nl speech Labs Result Diagram: 02/14/19 1243 02/14/19 1243 Medications Medications Current Medications Docusate Sodium (Colace) 100 mg BID PO Last administered on 02/16/19at 08:09; Admin Dose 100 MG; Start 02/12/19 at 21:00 Senna (Senokot) 1 tab HS PO Last administered on 02/15/19at 20:51; Admin Dose 1 TAB; Start 02/12/19 at 21:00 Magnesium Hydroxide (Milk Of Mag) 30 ml BID PRN PO CONSTIPATION; Start 02/12/19 at 20:30 Lactulose (Enulose) 20 gm DAILY PRN PO CONSTIPATION; Start 02/12/19 at 20:30 Bisacodyl (Dulcolax Supp) 10 mg DAILY PRN [place] CONSTIPATION; Start 02/12/19 at 20:30 Acetaminophen (Tylenol Tab) 650 mg Q4H PRN PO PAIN Last administered on 02/16/19 08:09; Admin Dose 650 MG; Start 02/12/19 at 20:30 Miscellaneous Information (Pending [facility] Order For Wound Care) This patient orellana... PRN PRN XX WOUND CARE; Start 02/13/19 at 04:00 Multivitamins/ Minerals (Theragran-M) 1 tab DAILY PO Last administered on 02/16/19 08:09; Admin Dose 1 TAB; Start 02/13/19 at 10:30 Thiamine HCl (Vitamin B1) 50 mg DAILY PO Last administered on 02/16/19 08:09; Admin Dose 50 MG; Start 02/14/19 at 09:00 Baclofen (Lioresal) 5 mg TID PO Last administered on 02/16/19 12:18; Admin Dose 5 MG; Start 02/14/19 at 13:00 Alprazolam (Xanax) 0.25 mg Q12H PRN PO ANXIETY Last administered on 02/15/19 08:30; Admin Dose 0.25 MG; Start 02/14/19 at 12:00 Chlordiazepoxide (Librium) 25 mg TID PO Last administered on 02/16/19 12:30; Admin Dose 25 MG; Start 02/14/19 at 13:00 Ceftriaxone Sodium 50 ml @ 100 mls/hr Q24H IVPB Last administered on 02/15/19 17:35; Admin Dose 100 MLS/HR; Start 02/14/19 at 16:00 Ibuprofen (Motrin) 400 mg Q6H PRN PO MILD PAIN(1-3) OR TEMP>38C Last admi nistered on 02/16/19 12:18; Admin Dose 400 MG; Start 02/15/19 at 11:30 Pantoprazole (Protonix Tab) 40 mg BID@06,18 PO Last administered on 02/16/19at 05:33; Admin Dose 40 MG; Start 02/15/19 at 18:00 MAGGIE JOHNSON Feb 16, 2019 12:50
[2019-02-16] MEDS ORDERED: IOHEXOL 100 ML ONE (13:48)
[2019-02-16] MEDS ORDERED: SOD CHLORIDE 0.9% 100 ML ONE (13:48)
[2019-02-16 14:00] VITALS: BP 102/69; PULSE 89; RESP 18
--- NOTE | 2019-02-16 14:11 | PN ---
Date/Time of Note Date/Time of Note DATE: 02/16/19 TIME: 13:59 Assessment/Plan VTE Prophylaxis Risk score (from Ns)>0 risk: 3 SCD applied (from Ns): Yes Pharmacological prophylaxis: NA/contraindicated Pharm contraindication: low risk/ambulating Lines/Catheters IV C[facility]ter [facility] (from [facility]): Saline Lock Assessment/Plan Hospital Course SUBJECTIVE: Patient continued to have pleuritic chest pain... OBJECTIVE: Vital signs-see below PHYSICAL EXAM: Constitutional: Adequately built,not in acute distress. HEENT: Head atraumatic and normocephalic. Eyes: Extraocular muscles intact. Anicteric sclerae. Pupils equal bilaterally, reactive to light. NECK: Supple without lymph node. CHEST: Clear and good breath sounds equally. No wheezing. No rhonchi. HEART: S1, S2. Regular rate and rhythm. ABDOMEN: Soft/non tender with no rebound tenderness. Bowel sounds were present. EXTREMITIES: +Tremors. No cyanosis, clubbing or edema. NEUROLOGIC: Alert and oriented x3. No focal deficit. No sensory deficit. PSYCHOSOCIAL: No signs of depression. INTEGUMENTARY: No open wounds. ASSESSMENT AND PLAN:63-year-old man with a past medical history of significant alcohol abuse, who was brought in for signs of alcohol withdrawal after quitting drinking 5 days prior to admission. ETOH withdrawal: -Improving. Continue Librium maintenance dose. -PRN Xanax Left Sided chest wall pain -ACS ruled out. Patient continues to have pain unrelieved by NSAIDs/muscle relaxant. -Agree with proceeding with CT angiography to rule out pulmonary embolism vs PNA. Leukocytosis, likely reactive -No evidence to suggest any active infection. -Follow-up blood cultures. -Continue empiric ceftriaxone Deconditioning -rehab plan per PT and OT. DVT prophylaxis: SCDs/ambulation Patient was seen in collaboration with Dr. Rock Result Diagram: 02/14/19 1243 02/14/19 1243 Exam/Review of Systems Exam Vitals Vital Signs Date Temp Pulse Resp B/P (MAP) Pulse Ox O2 O2 Flow FiO2 Time Delivery Rate 02/16/19 98.7 10:26 02/16/19 103 18 113/86 92 Room Air 07:00 (95) 02/15/19 2.0 19:58 Intake and Output 02/15/19 02/15/19 02/16/19 1515:00 23:00 07:00 IntakeIntake Total 200 ml 250 ml 200 ml OutputOutput Total 200 ml 850 ml BalanceBalance 200 ml 50 ml -650 ml Medications Medication Current Medications Docusate Sodium (Colace) 100 mg BID PO Last administered on 02/16/19 08:09; Admin Dose 100 MG; Start 02/12/19 at 21:00 Senna (Senokot) 1 tab HS PO Last administered on 02/15/19 20:51; Admin Dose 1 TAB; Start 02/12/19 at 21:00 Magnesium Hydroxide (Milk Of Mag) 30 ml BID PRN PO CONSTIPATION; Start 02/12/19 at 20:30 Lactulose (Enulose) 20 gm DAILY PRN PO CONSTIPATION; Start 02/12/19 at 20:30 Bisacodyl (Dulcolax Supp) 10 mg DAILY PRN [place] CONSTIPATION; Start 02/12/19 at 20:30 Acetaminophen (Tylenol Tab) 650 mg Q4H PRN PO PAIN Last administered on 02/16/19 08:09; Admin Dose 650 MG; Start 02/12/19 at 20:30 Miscellaneous Information (Pending Santyl Order For Wound Care) This patient orellana... PRN PRN XX WOUND CARE; Start 02/13/19 at 04:00 Multivitamins/ Minerals (Theragran-M) 1 tab DAILY PO Last administered on 02/16/19 08:09; Admin Dose 1 TAB; Start 02/13/19 at 10:30 Thiamine HCl (Vitamin B1) 50 mg DAILY PO Last administered on 02/16/19 08:09; Admin Dose 50 MG; Start 02/14/19 at 09:00 Baclofen (Lioresal) 5 mg TID PO Last administered on 02/16/19 12:18; Admin Dose 5 MG; Start 02/14/19 at 13:00 Alprazolam (Xanax) 0.25 mg Q12H PRN PO ANXIETY Last administered on 02/15/19 08:30; Admin Dose 0.25 MG; Start 02/14/19 at 12:00 Chlordiazepoxide (Librium) 25 mg TID PO Last administered on 02/16/19 12:30; Admin Dose 25 MG; Start 02/14/19 at 13:00 Ceftriaxone Sodium 50 ml @ 100 mls/hr Q24H IVPB Last administered on 02/15/19at 17:35; Admin Dose 100 MLS/HR; Start 02/14/19 at 16:00 Ibuprofen (Motrin) 400 mg Q6H PRN PO MILD PAIN(1-3) OR TEMP>38C Last administered on 02/16/19at 12:18; Admin Dose 400 MG; Start 02/15/19 at 11:30 Pantoprazole (Protonix Tab) 40 mg BID@06,18 PO Last administered on 02/16/19at 05:33; Admin Dose 40 MG; Start 02/15/19 at 18:00 DONALD MURGUIA NP Feb 16, 2019 14:11
--- NOTE | 2019-02-16 14:55 | QN ---
Documentation Comment Radiologist called and reported positive PE on CT angiography. Will start Lovenox anticoagulation and will have pulmonary consult. Case discussed with Dr. Rock. DONALD MURGUIA NP Feb 16, 2019 14:55
[2019-02-16] MEDS ORDERED: ENOXAPARIN 80 MG/0.8 ML SYG SC ONE (16:00)
[2019-02-16] MEDS: CEFTRIAXONE 1 GM/50 ML (PMX) 50 ML IVPB SCH (16:56)
--- NOTE | 2019-02-16 17:14 | PN ---
DATE: 02/16/2019 SUBJECTIVE: The patient continues physical therapy. Recent CT angiogram confirms acute pulmonary em bolus. The patient has been commenced on anticoagulation with improved pleuritic chest pain. OBJECTIVE: VITAL SIGNS: Temperature 98.4 with a T-max of 101.1, pulse is 89, blood pressure 102/69, O2 saturati on 98% on room air. NECK: Supple. No JVD or lymphadenopathy. CARDIAC: S1, S2. No added sounds or murmurs. CHEST: Diminished air entry bilaterally. ABDOMEN: Soft, nontender. No guarding or rebound. EXTREMITIES: No cyanosis, clubbing, 1+ edema. NEUROLOGIC: Generalized weakness. LABORATORY DATA: Most recent labs, white count was 19.8. Urinalysis is showing mixed organisms. IMPRESSION AND PLAN: 1. Rehabilitation, encephalopathy secondary to EtOH abuse. 2. Blunt head trauma. 3. Probable urinary tract infection. 4. Likely alcohol withdrawal syndrome. The patient will: 1. Continue adequate physical therapy with focus on bed mobility and transfers. 2. Continue his antibiotics for urinary tract infection, currently on ceftriaxone. 3. Acute pulmonary embolus on CT angiogram, currently on anticoagulation. 4. Deep venous thrombosis and gastrointestinal prophylaxis. Dictated By: SCOTT TRINH MD SV/NTS Conf#: [id number] DID#: [id number] CC: LINDA RICE MD; DANO CARRERA MD;*End*
--- NOTE | 2019-02-16 18:03 | CONS ---
DATE OF ADMISSION: 02/12/2019 DATE OF CONSULTATION: 02/16/2019 TYPE OF CONSULTATION: Psychological. REFERRING PHYSICIAN: Dano Zamudio MD CONSULTING PSYCHOLOGIST: Randy Pérez, PhD REASON FOR CONSULTATION: This consultation was requested by Dr. Domenic Zamudio in order to evaluate t he cognitive and emotional functioning of this patient related to his present medical condition. HISTORY OF PRESENT ILLNESS: The patient is a 64-year-old male. The patient does have a history of a lcohol abuse. The patient was admitted to [facility] with signs of alcohol withdra wal. The patient also did have some nausea, vomiting and had been increasingly having falls. The ciarra mckeon did report that he hit his head but did not lose consciousness. The patient has been in 12-sue p recovery programs but has had relapses. The patient is motivated to get better and does want to re turn to his previous level of functioning. FAMILY AND SOCIAL HISTORY: The patient lives in a home in [place] with his friend who owns a home a nd his friend's mother. He does want to return there after discharge. MEDICATIONS: The patient is currently not in any psychotropic medication. The patient is on Xanax 0 .25 mg q.12 hours p.r.n. SUBSTANCE USE: The patient reports he does not smoke. The patient does state that he does have a pr oblem with drinking. The patient has been in 12-step recovery programs but has had relapses. The ciarra mckeon reports he is committed to trying to remain sober and go back to 12-step recovery after dischar . MENTAL STATUS EXAMINATION: APPEARANCE: The patient was seen in bed. He appears to be of average height and weight. The patien t is right-handed. The patient does have a mustache and goatee. BEHAVIOR: The patient was cooperative during the consultation. The patient did attempt to answer al l questions presented to him by the interviewer. MOOD AND AFFECT: The patient's mood appears to be slightly depressed. Affect does appear to be slig htly anxious. The patient is actually denying anxiety and depression at this time, but is frustrated about all his medical problems and his problems with drinking. PERCEPTION: The patient reports no hallucinations or delusions. The patient was alert to person, pl alexander, situation and time. MEMORY AND COGNITION: The patient's memory and cognition appear to be impaired. He has some difficu lty relaying recent and remote events. He was however able to name the hospital, but he did call in "[facility]." He did know the month and the year. The patient was unable to state who th e vice president of nursing, the governor of the [facility] or the mayor [facility] are. The patient could not spell "world" backwards. He spelled it "D-R-O-W." The patient could not do any serial 7 subtraction from 100. His first answer was 100. Overall, the patient is probably h aving some aftereffects of his blunt head trauma as well as some issues with his withdrawal from alco hol. INTELLIGENCE: Intelligence would appear to fall in the average range when he is functioning adequate ly. INSIGHT: Fair. JUDGMENT: Fair. THOUGHT CONTENT: The patient is concerned about his present medical condition. The patient does wan t to recover and does want to do better for himself in regard to how he can function. DISCUSSION: The patient can likely benefit from some cognitive/behavioral psychotherapy while he is on the unit. This psychotherapy would focus on his underlying level of depression as well as dealing with his issues with alcohol dependence. The patient is encouraged to go back to 12-step recovery a fter discharge. The patient also could benefit from some cognitive retraining regarding some of his cognitive deficits. The patient might benefit from using memory book to help him do this. DIAGNOSTIC IMPRESSION: 1. 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 2. F10.20, alcohol dependence. 3. F06.8, cognitive disorder, not otherwise specified. Thank you very much, Dr. Domenic Zamudio, for referring this individual. Please do not hesitate to mynor richey if you have additional questions. Dictated By: RANDY PÉREZ PHD RK/GRISELDA Conf#: [id number] DID#: [id number] CC: LINDA RICE MD; SCOTT TRINH MD; DANO ZAMUDIO MD;*EndCC*
[2019-02-16 20:00] VITALS: BP 109/71; PULSE 81; RESP 18
[2019-02-16] MEDS: SENNA TAB PO SCH (21:35)
[2019-02-17 02:38] VITALS: BP 119/73; PULSE 83; RESP 18
[2019-02-17] MEDS: PANTOPRAZOLE (EC) 40 MG TAB PO SCH ×2 (06:20→18:24)
[2019-02-17] MEDS: ENOXAPARIN 80 MG/0.8 ML SYG SC SCH ×2 (06:21→21:07)
[2019-02-17 07:30] VITALS: BP 129/74; PULSE 83; RESP 18
[2019-02-17] MEDS: MULTIVITAMINS/MINERALS TAB PO SCH (10:31)
[2019-02-17] MEDS: CHLORDIAZEPOXIDE 25 MG CAP PO SCH ×3 (10:31→20:57)
[2019-02-17] MEDS: BACLOFEN 10 MG TAB PO SCH ×3 (10:31→20:57)
[2019-02-17] MEDS: DOCUSATE SODIUM 100 MG CAP PO SCH ×2 (10:32→20:57)
[2019-02-17] MEDS: THIAMINE 100 MG TAB PO SCH (10:32)
[2019-02-17] MEDS: IBUPROFEN 400 MG TAB PO PRN ×2 (12:58→20:58)
--- NOTE | 2019-02-17 12:59 | CONS ---
Assessment/Plan Assessment/Plan Hospital Course (Demo Recall) Acute pulmonary embolism: seen on CTA 02/16. Echo including RV function normal. Hemodynamically stable. Now on anticoagulation Fever/leukocytosis: potentially from PE Alcohol abuse with withdrawal Deconditioning -continue lovenox. Transition to oral anticoagulation -?liver workup for possible cirrhosis/malignancy Consultation Date/Type/Reason Admit Date/Time Feb 12, 2019 at 19:41 Initial Consult Date 02/15/19 Type of Consult Cardiology Requesting Provider: DONALD MURGUIA NP Date/Time of Note DATE: 02/17/19 TIME: 12:57 24 HR Interval Summary Free Text/Dictation PE confirmed on CTA No family or personal h/o thromboembolic disease per pt. Still with left chest pain but no dyspnea. Normal sats on room air Exam/Review of Systems Vital Signs Vitals Vital Signs Date Temp Pulse Resp B/P (MAP) Pulse Ox O2 O2 Flow FiO2 Time Delivery Rate 02/17/19 97.6 83 18 129/74 94 Room Air 07:30 (92) 02/15/19 2.0 19:58 Intake and Output 02/16/19 02/16/19 02/17/19 1515:00 23:00 07:00 IntakeIntake Total 1970 ml 280 ml OutputOutput Total 100 ml 600 ml 800 ml BalanceBalance -100 ml 1370 ml -520 ml Exam Constitutional: alert, oriented Psych: no complaints, nl mood/affect Head: normocephalic, atraumatic Neck: supple; No jvd Respiratory: diminished breath sounds; No clear to auscultation Cardiovascular: regular rate and rhythm; No edema, No systolic murmur Gastrointestinal: soft, non-tender; No distended Neurological: nl mental status, nl speech Labs Result Diagram: 02/17/19 0637 02/17/19 0637 Results 24hrs Laboratory Tests Test 02/17/19 06:37 White Blood Count 13.3 #H Red Blood Count 3.45 L Hemoglobin 11.4 L Hematocrit 34.2 L Mean Corpuscular Volume 99.1 Mean Corpuscular Hemoglobin 33.0 Mean Corpuscular Hemoglobin Concent 33.3 Red Cell Distribution Width 12.8 Platelet Count 440 H Mean Platelet Volume 11.1 H Immature Granulocytes % 0.700 H Neutrophils % 75.0 Lymphocytes % 8.1 L Monocytes % 14.4 H Eosinophils % 1.0 Basophils % 0.8 Nucleated Red Blood Cells % 0.0 Immature Granulocytes # 0.090 H Neutrophils # 10.0 H Lymphocytes # 1.1 Monocytes # 1.9 H Eosinophils # 0.1 Basophils # 0.1 Nucleated Red Blood Cells # 0.0 Sodium Level 141 Potassium Level 4.9 Chloride Level 104 Carbon Dioxide Level 30 Anion Gap 7 Blood Urea Nitrogen 20 Creatinine 0.81 Est Glomerular Filtrat Rate mL/min > 60 Glucose Level 101 Calcium Level 9.1 Magnesium Level 2.0 Medications Medications Current Medications Docusate Sodium (Colace) 100 mg BID PO Last administered on 02/17/19 10:32; Admin Dose 100 MG; Start 02/12/19 at 21:00 Senna (Senokot) 1 tab HS PO Last administered on 02/16/19 21:35; Admin Dose 1 TAB; Start 02/12/19 at 21:00 Magnesium Hydroxide (Milk Of Mag) 30 ml BID PRN PO CONSTIPATION; Start 02/12/19 at 20:30 Lactulose (Enulose) 20 gm DAILY PRN PO CONSTIPATION; Start 02/12/19 at 20:30 Bisacodyl (Dulcolax Supp) 10 mg DAILY PRN [place] CONSTIPATION; Start 02/12/19 at 20:30 Acetaminophen (Tylenol Tab) 650 mg Q4H PRN PO PAIN Last administered on 02/16/19 08:09; Admin Dose 650 MG; Start 02/12/19 at 20:30 Miscellaneous Information (Pending Santyl Order For Wound Care) This patient orellana... PRN PRN XX WOUND CARE; Start 02/13/19 at 04:00 Multivitamins/ Minerals (Theragran-M) 1 tab DAILY PO Last administered on 02/17/19 10:31; Admin Dose 1 TAB; Start 02/13/19 at 10:30 Thiamine HCl (Vitamin B1) 50 mg DAILY PO Last administered on 02/17/19 10:32; Admin Dose 50 MG; Start 02/14/19 at 09:00 Baclofen (Lioresal) 5 mg TID PO Last administered on 02/17/19 10:31; Admin Dose 5 MG; Start 02/14/19 at 13:00 Alprazolam (Xanax) 0.25 mg Q12H PRN PO ANXIETY Last administered on 02/15/19 08:30; Admin Dose 0.25 MG; Start 02/14/19 at 12:00 Chlordiazepoxide (Librium) 25 mg TID PO Last administered on 02/17/19 10:31; Admin Dose 25 MG; Start 02/14/19 at 13:00 Ceftriaxone Sodium 50 ml @ 100 mls/hr Q24H IVPB Last administered on 02/16/19 16:56; Admin Dose 100 MLS/HR; Start 02/14/19 at 16:00 Ibuprofen (Motrin) 400 mg Q6H PRN PO MILD PAIN(1-3) OR TEMP>38C Last admin istered on 02/16/19 12:18; Admin Dose 400 MG; Start 02/15/19 at 11:30 Pantoprazole (Protonix Tab) 40 mg BID@06,18 PO Last administered on 02/17/19 06:20; Admin Dose 40 MG; Start 02/15/19 at 18:00 Enoxaparin Sodium (Lovenox) 70 mg Q12 SC Last administered on 02/17/19 06:21; Admin Dose 70 MG; Start 02/17/19 at 06:00 MAGGIE JOHNSON Feb 17, 2019 12:59
--- NOTE | 2019-02-17 13:17 | PN ---
Date/Time of Note Date/Time of Note DATE: 02/17/19 TIME: 13:13 Assessment/Plan VTE Prophylaxis Risk score (from Ns)>0 risk: 3 SCD applied (from Ns): Yes Pharmacological prophylaxis: LMWH Lines/Catheters IV [facility]from [facility] Saline Lock Assessment/Plan Hospital Course SUBJECTIVE: Left-sided lower chest wall pain improved. No fevers. OBJECTIVE: Vital signs-see below PHYSICAL EXAM: Constitutional: Adequately built,not in acute distress. HEENT: Head atraumatic and normocephalic. Eyes: Extraocular muscles intact. Anicteric sclerae. Pupils equal bilaterally, reactive to light. NECK: Supple without lymph node. CHEST: Clear and good breath sounds equally. No wheezing. No rhonchi. HEART: S1, S2. Regular rate and rhythm. ABDOMEN: Soft/non tender with no rebound tenderness. Bowel sounds were present. EXTREMITIES: +Tremors. No cyanosis, clubbing or edema. NEUROLOGIC: Alert and oriented x3. No focal deficit. No sensory deficit. PSYCHOSOCIAL: No signs of depression. INTEGUMENTARY: No open wounds. ASSESSMENT AND PLAN:63-year-old man with a past medical history of significant alcohol abuse, who was brought in for signs of alcohol withdrawal after quitting drinking 5 days prior to admission. ETOH withdrawal: -Improving. Continue Librium maintenance dose. -PRN Xanax Acute pulmonary embolism -Likely culprit of left-sided chest wall pleuritic pain. -Obtain ultrasound BLE to rule out DVT -Echo with good RV function. -Transition to oral anticoagulation in next 24 hours. SIRS W/Leukocytosis, likely reactive w/PE vs early onset pneumonia -WBC improved. Continue ceftriaxone x5 days. Deconditioning -rehab plan per PT and OT. DVT prophylaxis: Therapeutic dose of Lovenox. We will up liver ultrasound and LE ultrasound Patient was seen in collaboration with Dr. Rock Result Diagram: 02/17/19 0637 02/17/19 0637 Results 24hrs Laboratory Tests Test 02/17/19 06:37 White Blood Count 13.3 #H Red Blood Count 3.45 L Hemoglobin 11.4 L Hematocrit 34.2 L Mean Corpuscular Volume 99.1 Mean Corpuscular Hemoglobin 33.0 Mean Corpuscular Hemoglobin Concent 33.3 Red Cell Distribution Width 12.8 Platelet Count 440 H Mean Platelet Volume 11.1 H Immature Granulocytes % 0.700 H Neutrophils % 75.0 Lymphocytes % 8.1 L Monocytes % 14.4 H Eosinophils % 1.0 Basophils % 0.8 Nucleated Red Blood Cells % 0.0 Immature Granulocytes # 0.090 H Neutrophils # 10.0 H Lymphocytes # 1.1 Monocytes # 1.9 H Eosinophils # 0.1 Basophils # 0.1 Nucleated Red Blood Cells # 0.0 Sodium Level 141 Potassium Level 4.9 Chloride Level 104 Carbon Dioxide Level 30 Anion Gap 7 Blood Urea Nitrogen 20 Creatinine 0.81 Est Glomerular Filtrat Rate mL/min > 60 Glucose Level 101 Calcium Level 9.1 Magnesium Level 2.0 Exam/Review of Systems Exam Vitals Vital Signs Date Temp Pulse Resp B/P (MAP) Pulse Ox O2 O2 Flow FiO2 Time Delivery Rate 02/17/19 97.6 83 18 129/74 94 Room Air 07:30 (92) 02/15/19 2.0 19:58 Intake and Output 02/16/19 02/16/19 02/17/19 1515:00 23:00 07:00 IntakeIntake Total 1970 ml 280 ml OutputOutput Total 100 ml 600 ml 800 ml BalanceBalance -100 ml 1370 ml -520 ml Results Results 24hrs Laboratory Tests Test 02/17/19 06:37 White Blood Count 13.3 #H Red Blood Count 3.45 L Hemoglobin 11.4 L Hematocrit 34.2 L Mean Corpuscular Volume 99.1 Mean Corpuscular Hemoglobin 33.0 Mean Corpuscular Hemoglobin Concent 33.3 Red Cell Distribution Width 12.8 Platelet Count 440 H Mean Platelet Volume 11.1 H Immature Granulocytes % 0.700 H Neutrophils % 75.0 Lymphocytes % 8.1 L Monocytes % 14.4 H Eosinophils % 1.0 Basophils % 0.8 Nucleated Red Blood Cells % 0.0 Immature Granulocytes # 0.090 H Neutrophils # 10.0 H Lymphocytes # 1.1 Monocytes # 1.9 H Eosinophils # 0.1 Basophils # 0.1 Nucleated Red Blood Cells # 0.0 Sodium Level 141 Potassium Level 4.9 Chloride Level 104 Carbon Dioxide Level 30 Anion Gap 7 Blood Urea Nitrogen 20 Creatinine 0.81 Est Glomerular Filtrat Rate mL/min > 60 Glucose Level 101 Calcium Level 9.1 Magnesium Level 2.0 Medications Medication Current Medications Docusate Sodium (Colace) 100 mg BID PO Last administered on 02/17/19 10:32; Admin Dose 100 MG; Start 02/12/19 at 21:00 Senna (Senokot) 1 tab HS PO Last administered on 02/16/19 21:35; Admin Dose 1 TAB; Start 02/12/19 at 21:00 Magnesium Hydroxide (Milk Of Mag) 30 ml BID PRN PO CONSTIPATION; Start 02/12/19 at 20:30 Lactulose (Enulose) 20 gm DAILY PRN PO CONSTIPATION; Start 02/12/19 at 20:30 Bisacodyl (Dulcolax Supp) 10 mg DAILY PRN [place] CONSTIPATION; Start 02/12/19 at 20:30 Acetaminophen (Tylenol Tab) 650 mg Q4H PRN PO PAIN Last administered on 02/16/19 08:09; Admin Dose 650 MG; Start 02/12/19 at 20:30 [facility] This patient orellana... PRN PRN XX WOUND CARE; Start 02/13/19 at 04:00 Multivitamins/ Minerals (Theragran-M) 1 tab DAILY PO Last administered on 02/17/19 10:31; Admin Dose 1 TAB; Start 02/13/19 at 10:30 Thiamine HCl (Vitamin B1) 50 mg DAILY PO Last administered on 02/17/19 10:32; Admin Dose 50 MG; Start 02/14/19 at 09:00 Baclofen (Lioresal) 5 mg TID PO Last administered on 02/17/19 10:31; Admin Dose 5 MG; Start 02/14/19 at 13:00 Alprazolam (Xanax) 0.25 mg Q12H PRN PO ANXIETY Last administered on 02/15/19 08:30; Admin Dose 0.25 MG; Start 02/14/19 at 12:00 Chlordiazepoxide (Librium) 25 mg TID PO Last administered on 02/17/19 10:31; Admin Dose 25 MG; Start 02/14/19 at 13:00 Ceftriaxone Sodium 50 ml @ 100 mls/hr Q24H IVPB Last administered on 02/16/19 16:56; Admin Dose 100 MLS/HR; Start 02/14/19 at 16:00 Ibuprofen (Motrin) 400 mg Q6H PRN PO MILD PAIN(1-3) OR TEMP>38C Last administered on 02/17/19at 12:58; Admin Dose 400 MG; Start 02/15/19 at 11:30 Pantoprazole (Protonix Tab) 40 mg BID@06,18 PO Last administered on 02/17/19at 06:20; Admin Dose 40 MG; Start 02/15/19 at 18:00 Enoxaparin Sodium (Lovenox) 70 mg Q12 SC Last administered on 02/17/19at 06:21; Admin Dose 70 MG; Start 02/17/19 at 06:00 DONALD MURGUIA NP Feb 17, 2019 13:17
[2019-02-17 14:00] VITALS: BP 117/73; PULSE 98; RESP 18
[2019-02-17] MEDS: CEFTRIAXONE 1 GM/50 ML (PMX) 50 ML IVPB SCH (18:16)
--- NOTE | 2019-02-17 18:55 | PN ---
DATE: 02/17/2019 SUBJECTIVE: The patient is stable this morning with no acute event overnight, improved lower chest w all pain with no fevers. OBJECTIVE: VITAL SIGNS: Temperature 97.6, pulse 83, blood pressure 129/74, O2 saturation 94% on room air. NECK: Supple. No JVD or lymphadenopathy. CARDIAC: S1, S2. No added sounds or murmurs. CHEST: Diminished air entry bilaterally. ABDOMEN: Soft, nontender. No guarding or rebound. EXTREMITIES: No cyanosis, clubbing or edema. NEUROLOGICAL: Grossly intact. LABORATORY DATA: White count down to 13.3, hemoglobin 11.4, platelets of 440. Chemistry within norm al limits. ASSESSMENT AND PLAN: 1. Rehabilitation, encephalopathy secondary to EtOH abuse, appears to be slowly resolving. 2. Blunt head trauma, currently stable, requiring no intervention. 3. Status post urinary tract infection, on ceftriaxone. 4. New diagnosis of pulmonary embolism, currently continuing Lovenox and will need transition to Tamika manjinder. Dictated By: SCOTT TRINH MD SV/GRISELDA Conf#: [id number] DID#: [id number] CC: DNAO CARRERA MD; LINDA RICE MD;*EndCC*
[2019-02-17 19:32] VITALS: BP 119/70; PULSE 88; RESP 18
[2019-02-17] MEDS: SENNA TAB PO SCH (20:57)
[2019-02-18 02:00] VITALS: BP 122/68; PULSE 85; RESP 18
[2019-02-18] MEDS: PANTOPRAZOLE (EC) 40 MG TAB PO SCH ×2 (05:59→17:52)
[2019-02-18 07:00] VITALS: BP 118/77; PULSE 93; RESP 18
--- NOTE | 2019-02-18 08:46 | CONS ---
Assessment/Plan Assessment/Plan Hospital Course (Demo Recall) Acute pulmonary embolism: seen on CTA 02/16. Echo including RV function normal. Hemodynamically stable. Now on anticoagulation Fever/leukocytosis: potentially from PE. Resolved Alcohol abuse with withdrawal Deconditioning -continue lovenox. Transition to oral anticoagulation - Consultation Date/Type/Reason Admit Date/Time Feb 12, 2019 at 19:41 Initial Consult Date 02/15/19 Type of Consult Cardiology Requesting Provider: DONALD MURGUIA NP Date/Time of Note DATE: 02/18/19 TIME: 08:45 24 HR Interval Summary Free Text/Dictation Chest pain resolved. No dyspnea. Walking with PT Exam/Review of Systems Vital Signs Vitals Vital Signs Date Temp Pulse Resp B/P (MAP) Pulse Ox O2 O2 Flow FiO2 Time Delivery Rate 02/18/19 97.8 93 18 118/77 96 Room Air 07:00 (91) 02/15/19 2.0 19:58 Intake and Output 02/17/19 02/17/19 02/18/19 1515:00 23:00 07:00 IntakeIntake Total 870 ml 550 ml OutputOutput Total 420 ml 600 ml BalanceBalance 450 ml -50 ml Exam Constitutional: alert, oriented Psych: no complaints, nl mood/affect Head: normocephalic, atraumatic Neck: supple; No jvd Respiratory: diminished breath sounds; No clear to auscultation Cardiovascular: regular rate and rhythm; No edema Gastrointestinal: soft, non-tender; No distended Neurological: nl mental status, nl speech Labs Result Diagram: 02/17/19 0637 02/17/19 0637 Medications Medications Current Medications Docusate Sodium (Colace) 100 mg BID PO Last administered on 02/17/19at 20:57; Admin Dose 100 MG; Start 02/12/19 at 21:00 Senna (Senokot) 1 tab HS PO Last administered on 02/17/19at 20:57; Admin Dose 1 TAB; Start 02/12/19 at 21:00 Magnesium Hydroxide (Milk Of Mag) 30 ml BID PRN PO CONSTIPATION; Start 02/12/19 at 20:30 Lactulose (Enulose) 20 gm DAILY PRN PO CONSTIPATION; Start 02/12/19 at 20:30 Bisacodyl (Dulcolax Supp) 10 mg DAILY PRN [place] CONSTIPATION; Start 02/12/19 at 20:30 Acetaminophen (Tylenol Tab) 650 mg Q4H PRN PO PAIN Last administered on 02/16/19 08:09; Admin Dose 650 MG; Start 02/12/19 at 20:30 [facility] This patient orellana... PRN PRN XX WOUND CARE; Start 02/13/19 at 04:00 Multivitamins/ Minerals (Theragran-M) 1 tab DAILY PO Last administered on 02/17/19 10:31; Admin Dose 1 TAB; Start 02/13/19 at 10:30 Thiamine HCl (Vitamin B1) 50 mg DAILY PO Last administered on 02/17/19 10:32; Admin Dose 50 MG; Start 02/14/19 at 09:00 Baclofen (Lioresal) 5 mg TID PO Last administered on 02/17/19 20:57; Admin Dose 5 MG; Start 02/14/19 at 13:00 Alprazolam (Xanax) 0.25 mg Q12H PRN PO ANXIETY Last administered on 02/15/19 08:30; Admin Dose 0.25 MG; Start 02/14/19 at 12:00 Chlordiazepoxide (Librium) 25 mg TID PO Last administered on 02/17/19 20:57; Admin Dose 25 MG; Start 02/14/19 at 13:00 Ceftriaxone Sodium 50 ml @ 100 mls/hr Q24H IVPB Last administered on 02/17/19 18:16; Admin Dose 100 MLS/HR; Start 02/14/19 at 16:00 Ibuprofen (Motrin) 400 mg Q6H PRN PO MILD PAIN(1-3) OR TEMP>38C Last administered on 02/17/19 20:58; Admin Dose 400 MG; Start 02/15/19 at 11:30 Pantoprazole (Protonix Tab) 40 mg BID@06,18 PO Last administered on 02/18/19 05:59; Admin Dose 40 MG; Start 02/15/19 at 18:00 Enoxaparin Sodium (Lovenox) 70 mg Q12 SC Last administered on 02/17/19 21:07; Admin Dose 70 MG; Start 02/17/19 at 06:00 MAGGIE JOHNSON Feb 18, 2019 08:46
[2019-02-18] MEDS: BACLOFEN 10 MG TAB PO SCH ×3 (09:16→20:34)
[2019-02-18] MEDS: MULTIVITAMINS/MINERALS TAB PO SCH (09:17)
[2019-02-18] MEDS: DOCUSATE SODIUM 100 MG CAP PO SCH ×2 (09:17→20:34)
[2019-02-18] MEDS: CHLORDIAZEPOXIDE 25 MG CAP PO SCH ×3 (09:17→20:34)
[2019-02-18] MEDS: THIAMINE 100 MG TAB PO SCH (09:17)
[2019-02-18] MEDS: ENOXAPARIN 80 MG/0.8 ML SYG SC SCH (09:21)
--- NOTE | 2019-02-18 12:35 | PN ---
Date/Time of Note Date/Time of Note DATE: 02/18/19 TIME: 12:33 Assessment/Plan VTE Prophylaxis Risk score (from [facility])>0 risk: 3 SCD applied (from [facility] [place]): Yes Pharmacological prophylaxis: apixaban Lines/Catheters IV [facility] (from [facility] Saline Lock Assessment/Plan Hospital Course SUBJECTIVE: No acute overnight episodes. With improved chest pain. OBJECTIVE: Vital signs-see below PHYSICAL EXAM: Constitutional: Adequately built,not in acute distress. HEENT: Head atraumatic and normocephalic. Eyes: Extraocular muscles intact. Anicteric sclerae. Pupils equal bilaterally, reactive to light. NECK: Supple without lymph node. CHEST: Clear and good breath sounds equally. No wheezing. No rhonchi. HEART: S1, S2. Regular rate and rhythm. ABDOMEN: Soft/non tender with no rebound tenderness. Bowel sounds were present. EXTREMITIES: +Tremors. No cyanosis, clubbing or edema. NEUROLOGIC: Alert and oriented x3. No focal deficit. No sensory deficit. PSYCHOSOCIAL: No signs of depression. INTEGUMENTARY: No open wounds. ASSESSMENT AND PLAN:63-year-old man with a past medical history of significant alcohol abuse, who was brought in for signs of alcohol withdrawal after quitting drinking 5 days prior to admission. ETOH withdrawal: -Improving. Continue Librium maintenance dose. -PRN Xanax Acute pulmonary embolism -Likely culprit of left-sided chest wall pleuritic pain. -No evidence of DVT -Echo with good RV function. -Transition to Eliquis 10 mg p.o. x7 days followed by 10 mg twice daily. SIRS W/Leukocytosis, likely reactive w/PE vs early onset pneumonia -WBC improved. Continue ceftriaxone x5 days. Deconditioning -rehab plan per PT and OT. DVT prophylaxis: eliquis Patient was seen in collaboration with Dr. Rock Result Diagram: 02/17/19 0637 02/17/19 0637 Exam/Review of Systems Exam Vitals Vital Signs Date Temp Pulse Resp B/P (MAP) Pulse Ox O2 O2 Flow FiO2 Time Delivery Rate 02/18/19 97.8 93 18 118/77 96 Room Air 07:00 (91) 02/15/19 2.0 19:58 Intake and Output 02/17/19 02/17/19 02/18/19 1515:00 23:00 07:00 IntakeIntake Total 870 ml 550 ml OutputOutput Total 420 ml 600 ml BalanceBalance 450 ml -50 ml Medications Medication Current Medications Docusate Sodium (Colace) 100 mg BID PO Last administered on 02/18/19 09:17; Ad min Dose 100 MG; Start 02/12/19 at 21:00 Senna (Senokot) 1 tab HS PO Last administered on 02/17/19 20:57; Admin Dose 1 TAB; Start 02/12/19 at 21:00 Magnesium Hydroxide (Milk Of Mag) 30 ml BID PRN PO CONSTIPATION; Start 02/12/19 at 20:30 Lactulose (Enulose) 20 gm DAILY PRN PO CONSTIPATION; Start 02/12/19 at 20:30 Bisacodyl (Dulcolax Supp) 10 mg DAILY PRN [place] CONSTIPATION; Start 02/12/19 at 20:30 Acetaminophen (Tylenol Tab) 650 mg Q4H PRN PO PAIN Last administered on 02/16/19 08:09; Admin Dose 650 MG; Start 02/12/19 at 20:30 [facility] This patient orellana... PRN PRN XX WOUND CARE; Start 02/13/19 at 04:00 Multivitamins/ Minerals (Theragran-M) 1 tab DAILY PO Last administered on 02/18/19 09:17; Admin Dose 1 TAB; Start 02/13/19 at 10:30 Thiamine HCl (Vitamin B1) 50 mg DAILY PO Last administered on 02/18/19 09:17; Admin Dose 50 MG; Start 02/14/19 at 09:00 Baclofen (Lioresal) 5 mg TID PO Last administered on 02/18/19 09:16; Admin Dose 5 MG; Start 02/14/19 at 13:00 Alprazolam (Xanax) 0.25 mg Q12H PRN PO ANXIETY Last administered on 02/15/19 08:30; Admin Dose 0.25 MG; Start 02/14/19 at 12:00 Chlordiazepoxide (Librium) 25 mg TID PO Last administered on 02/18/19 09:17; Admin Dose 25 MG; Start 02/14/19 at 13:00 Ceftriaxone Sodium 50 ml @ 100 mls/hr Q24H IVPB Last administered on 02/17/19 18:16; Admin Dose 100 MLS/HR; Start 02/14/19 at 16:00 Ibuprofen (Motrin) 400 mg Q6H PRN PO MILD PAIN(1-3) OR TEMP>38C Last administered on 02/17/19at 20:58; Admin Dose 400 MG; Start 02/15/19 at 11:30 Pantoprazole (Protonix Tab) 40 mg BID@06,18 PO Last administered on 02/18/19at 05:59; Admin Dose 40 MG; Start 02/15/19 at 18:00 Enoxaparin Sodium (Lovenox) 70 mg Q12 SC Last administered on 02/18/19 09:21; Admin Dose 70 MG; Start 02/17/19 at 06:00 DONALD MURGUIA V. NECK CUTTER Feb 18, 2019 12:34
[2019-02-18] MEDS: APIXABAN 5 MG TABLET PO SCH ×2 (13:18→20:34)
--- NOTE | 2019-02-18 13:25 | PN ---
DATE: 02/18/2019 SUBJECTIVE: No events overnight. The patient required Motrin x1 for pain relief. Liver ultrasound results demonstrated hepatic steatosis, but no hepatocellular disease and lower extremity Dopplers de monstrated no evidence of deep vein thrombosis. PHYSICAL EXAMINATION: VITAL SIGNS: Temperature 97.8, pulse is 93, blood pressure 118/77, and O2 saturation 96% on room air . NECK: Supple. No JVD or lymphadenopathy. CARDIAC: Sounds S1, S2, no added sounds or murmurs. CHEST: Diminished air entry at the bases. ABDOMEN: Soft, nontender. No guarding or rebound. EXTREMITIES: No cyanosis, clubbing or edema. NEUROLOGIC: Grossly intact. LABORATORY DATA: No new labs today. IMPRESSION AND PLAN: 1. Rehabilitation acute encephalopathy complicated by recent pulmonary embolus. Gait continues guar d assist 100 feet with a walker. ADLs minimal assist lower body. ADLs supervised assist upper body. 2. History of blunt head trauma. 3. Recent urinary tract infection. 4. Pulmonary embolus. Continues anticoagulation. We discussed transition to [facility] from [facility]. Dictated By: SCOTT TRINH MD SV/GRISELDA Conf#: [id number] DID#: [id number] CC: DANO CARRERA MD;*EndCC*
[2019-02-18 14:00] VITALS: BP 125/49; PULSE 67; RESP 18
[2019-02-18] MEDS: CEFTRIAXONE 1 GM/50 ML (PMX) 50 ML IVPB SCH (16:53)
[2019-02-18 20:00] VITALS: BP 109/71; PULSE 97; RESP 19
[2019-02-18] MEDS: SENNA TAB PO SCH (20:33)
[2019-02-19 01:59] VITALS: BP 121/83; PULSE 82; RESP 18
[2019-02-19] MEDS: PANTOPRAZOLE (EC) 40 MG TAB PO SCH ×2 (05:34→17:38)
[2019-02-19 07:00] VITALS: BP 118/79; PULSE 80; RESP 18
--- NOTE | 2019-02-19 08:26 | PN ---
Date/Time of Note Date/Time of Note DATE: 02/19/19 TIME: 08:24 Subjective AWAKE ALERT, - SOB , - PAIN, PO GOOD Objective Vital Signs Date Temp Pulse Resp B/P (MAP) Pulse Ox O2 O2 Flow FiO2 Time Delivery Rate 02/19/19 98.3 82 18 121/83 96 Room Air 01:59 (96) 02/15/19 2.0 19:58 Intake and Output 02/18/19 02/18/19 02/19/19 1515:00 23:00 07:00 IntakeIntake Total 480 ml OutputOutput Total 800 ml 1000 ml BalanceBalance -320 ml -1000 ml Exam LUNGS CTA COR RRR GOOD MOTOR FOLLOWS COMMANS CLOF SBA ALL MOBS. GAIT 150 FEET WITH FWW Results/Medications Result Diagram: 02/19/19 0549 02/17/19 0637 Results 24 hrs Laboratory Tests Test 02/19/19 05:49 White Blood Count 10.8 Red Blood Count 3.60 L Hemoglobin 11.7 L Hematocrit 35.9 L Mean Corpuscular Volume 99.7 Mean Corpuscular Hemoglobin 32.5 Mean Corpuscular Hemoglobin Concent 32.6 Red Cell Distribution Width 12.9 Platelet Count 479 H Mean Platelet Volume 10.6 H Immature Granulocytes % 0.700 H Neutrophils % 70.4 Lymphocytes % 13.6 L Monocytes % 11.7 H Eosinophils % 2.8 Basophils % 0.8 Nucleated Red Blood Cells % 0.0 Immature Granulocytes # 0.080 H Neutrophils # 7.6 H Lymphocytes # 1.5 Monocytes # 1.3 H Eosinophils # 0.3 Basophils # 0.1 Nucleated Red Blood Cells # 0.0 Medications Current Medications Docusate Sodium (Colace) 100 mg BID PO Last administered on 02/18/19at 20:34; Admin Dose 100 MG; Start 02/12/19 at 21:00 Senna (Senokot) 1 tab HS PO Last administered on 02/18/19at 20:33; Admin Dose 1 T AB; Start 02/12/19 at 21:00 Magnesium Hydroxide (Milk Of Mag) 30 ml BID PRN PO CONSTIPATION; Start 02/12/19 at 20:30 Lactulose (Enulose) 20 gm DAILY PRN PO CONSTIPATION; Start 02/12/19 at 20:30 Bisacodyl (Dulcolax Supp) 10 mg DAILY PRN [place] CONSTIPATION; Start 02/12/19 at 20:30 Acetaminophen (Tylenol Tab) 650 mg Q4H PRN PO PAIN Last administered on 02/16/19 08:09; Admin Dose 650 MG; Start 02/12/19 at 20:30 [facility]isc[facility] This patient orellana... PRN PRN XX WOUND CARE; Start 02/13/19 at 04:00 Multivitamins/ Minerals (Theragran-M) 1 tab DAILY PO Last administered on 02/18/19 09:17; Admin Dose 1 TAB; Start 02/13/19 at 10:30 Thiamine HCl (Vitamin B1) 50 mg DAILY PO Last administered on 02/18/19 09:17; Admin Dose 50 MG; Start 02/14/19 at 09:00 Baclofen (Lioresal) 5 mg TID PO Last administered on 02/18/19 20:34; Admin Dose 5 MG; Start 02/14/19 at 13:00 Alprazolam (Xanax) 0.25 mg Q12H PRN PO ANXIETY Last administered on 02/15/19 08:30; Admin Dose 0.25 MG; Start 02/14/19 at 12:00 Chlordiazepoxide (Librium) 25 mg TID PO Last administered on 02/18/19 20:34; Admin Dose 25 MG; Start 02/14/19 at 13:00 Ceftriaxone Sodium 50 ml @ 100 mls/hr Q24H IVPB Last administered on 02/18/19 16:53; Admin Dose 100 MLS/HR; Start 02/14/19 at 16:00 Ibuprofen (Motrin) 400 mg Q6H PRN PO MILD PAIN(1-3) OR TEMP>38C Last administered on 02/17/19 20:58; Admin Dose 400 MG; Start 02/15/19 at 11:30 Pantoprazole (Protonix Tab) 40 mg BID@06,18 PO Last administered on 02/19/19 05:34; Admin Dose 40 MG; Start 02/15/19 at 18:00 Apixaban (Eliquis) 10 mg BID PO Last administered on 02/18/19 20:34; Admin Dose 10 MG; Start 02/18/19 at 13:00; Stop 02/24/19 at 21:01 Apixaban (Eliquis) 5 mg BID PO ; Start 02/25/19 at 09:00 Assessment/Plan Additional Assessment/Plan 1. Rehabilitation acute encephalopathy complicated by recent pulmonary embolus. [employer] 2. History of blunt head trauma. 3. Recent urinary tract infection. 4. Pulmonary embolus. Continues anticoagulation. We discussed transition to Eliquis from Lovenox. DIVINE CARRERA MD Feb 19, 2019 08:26
[2019-02-19] MEDS: DOCUSATE SODIUM 100 MG CAP PO SCH ×2 (09:00→21:06)
--- NOTE | 2019-02-19 09:56 | CONS ---
Assessment/Plan Assessment/Plan Hospital Course (Demo Recall) Acute pulmonary embolism: seen on CTA 02/16. Echo including RV function normal. Hemodynamically stable. Now on anticoagulation Fever/leukocytosis: potentially from PE. Resolved Alcohol abuse with withdrawal Deconditioning -continue Eliquis -dispo per PMD. Will follow PRN Consultation Date/Type/Reason Admit Date/Time Feb 12, 2019 at 19:41 Initial Consult Date 02/15/19 Type of Consult Cardiology Requesting Provider: DONALD MURGUIA NP Date/Time of Note DATE: 02/19/19 TIME: 09:55 24 HR Interval Summary Free Text/Dictation No events. Very mild pleuritic chest pain. Switched to Eliquis Exam/Review of Systems Vital Signs Vitals Vital Signs Date Temp Pulse Resp B/P (MAP) Pulse Ox O2 O2 Flow FiO2 Time Delivery Rate 02/19/19 98.1 80 18 118/79 97 Room Air 07:00 (92) 02/15/19 2.0 19:58 Intake and Output 02/18/19 02/18/19 02/19/19 1414:59 22:59 06:59 IntakeIntake Total 480 ml OutputOutput Total 800 ml 1000 ml BalanceBalance -320 ml -1000 ml Exam Constitutional: alert, oriented Psych: no complaints, nl mood/affect Head: normocephalic, atraumatic Neck: supple; No jvd Respiratory: diminished breath sounds; No clear to auscultation Cardiovascular: regular rate and rhythm; No edema Gastrointestinal: soft, non-tender; No distended Neurological: nl mental status, nl speech Labs Result Diagram: 02/19/19 0549 02/17/19 0637 Results 24hrs Laboratory Tests Test 02/19/19 05:49 White Blood Count 10.8 Red Blood Count 3.60 L Hemoglobin 11.7 L Hematocrit 35.9 L Mean Corpuscular Volume 99.7 Mean Corpuscular Hemoglobin 32.5 Mean Corpuscular Hemoglobin Concent 32.6 Red Cell Distribution Width 12.9 Platelet Count 479 H Mean Platelet Volume 10.6 H Immature Granulocytes % 0.700 H Neutrophils % 70.4 Lymphocytes % 13.6 L Monocytes % 11.7 H Eosinophils % 2.8 Basophils % 0.8 Nucleated Red Blood Cells % 0.0 Immature Granulocytes # 0.080 H Neutrophils # 7.6 H Lymphocytes # 1.5 Monocytes # 1.3 H Eosinophils # 0.3 Basophils # 0.1 Nucleated Red Blood Cells # 0.0 Medications Medications Current Medications Docusate Sodium (Colace) 100 mg BID PO Last administered on 02/18/19 20:34; Admin Dose 100 MG; Start 02/12/19 at 21:00 Senna (Senokot) 1 tab HS PO Last administered on 02/18/19 20:33; Admin Dose 1 TAB; Start 02/12/19 at 21:00 Magnesium Hydroxide (Milk Of Mag) 30 ml BID PRN PO CONSTIPATION; Start 02/12/19 at 20:30 Lactulose (Enulose) 20 gm DAILY PRN PO CONSTIPATION; Start 02/12/19 at 20:30 Bisacodyl (Dulcolax Supp) 10 mg DAILY PRN [place] CONSTIPATION; Start 02/12/19 at 20:30 Acetaminophen (Tylenol Tab) 650 mg Q4H PRN PO PAIN Last administered on 02/16/19 08:09; Admin Dose 650 MG; Start 02/12/19 at 20:30 Miscellaneous Information (Pending [facility] Order For Wound Care) This patient orellana... PRN PRN XX WOUND CARE; Start 02/13/19 at 04:00 Multivitamins/ Minerals (Theragran-M) 1 tab DAILY PO Last administered on 02/18/19 09:17; Admin Dose 1 TAB; Start 02/13/19 at 10:30 Thiamine HCl (Vitamin B1) 50 mg DAILY PO Last administered on 02/18/19 09:17; Admin Dose 50 MG; Start 02/14/19 at 09:00 Baclofen (Lioresal) 5 mg TID PO Last administered on 02/18/19 20:34; Admin Dose 5 MG; Start 02/14/19 at 13:00 Alprazolam (Xanax) 0.25 mg Q12H PRN PO ANXIETY Last administered on 02/15/19 08:30; Admin Dose 0.25 MG; Start 02/14/19 at 12:00 Chlordiazepoxide (Librium) 25 mg TID PO Last administered on 02/18/19 20:34; Admin Dose 25 MG; Start 02/14/19 at 13:00 Ceftriaxone Sodium 50 ml @ 100 mls/hr Q24H IVPB Last administered on 02/18/19 16:53; Admin Dose 100 MLS/HR; Start 02/14/19 at 16:00 Ibuprofen (Motrin) 400 mg Q6H PRN PO MILD PAIN(1-3) OR TEMP>38C Last administered on 02/17/19at 20:58; Admin Dose 400 MG; Start 02/15/19 at 11:30 Pantoprazole (Protonix Tab) 40 mg BID@06,18 PO Last administered on 02/19/19at 05:34; Admin Dose 40 MG; Start 02/15/19 at 18:00 Apixaban (Eliquis) 10 mg BID PO Last administered on 02/18/19at 20:34; Admin Dose 10 MG; Start 02/18/19 at 13:00; Stop 02/24/19 at 21:01 Apixaban (Eliquis) 5 mg BID PO ; Start 02/25/19 at 09:00 MAGGIE JOHNSON Feb 19, 2019 09:56
[2019-02-19] MEDS: BACLOFEN 10 MG TAB PO SCH ×3 (09:59→21:06)
[2019-02-19] MEDS: THIAMINE 100 MG TAB PO SCH (10:00)
[2019-02-19] MEDS: MULTIVITAMINS/MINERALS TAB PO SCH (10:00)
[2019-02-19] MEDS: CHLORDIAZEPOXIDE 25 MG CAP PO SCH ×3 (10:00→21:06)
[2019-02-19] MEDS: APIXABAN 5 MG TABLET PO SCH ×2 (10:02→21:06)
[2019-02-19 14:00] VITALS: BP 103/71; PULSE 87; RESP 18
--- NOTE | 2019-02-19 15:11 | PN ---
Date/Time of Note Date/Time of Note DATE: 02/19/19 TIME: 15:09 Assessment/Plan VTE [place]axis [place] [facility] [place]: 3 [place]CD applied [place] [facility] [place] Yes Pharmacological prophylaxis: apixaban Lines/Catheters IV Catheter Type (from [facility]): Saline Lock Assessment/Plan Hospital Course SUBJECTIVE: No acute overnight episodes. With improved chest pain. OBJECTIVE: Vital signs-see below PHYSICAL EXAM: Constitutional: Adequately built,not in acute distress. HEENT: Head atraumatic and normocephalic. Eyes: Extraocular muscles intact. Anicteric sclerae. Pupils equal bilaterally, reactive to light. NECK: Supple without lymph node. CHEST: Clear and good breath sounds equally. No wheezing. No rhonchi. HEART: S1, S2. Regular rate and rhythm. ABDOMEN: Soft/non tender with no rebound tenderness. Bowel sounds were present. EXTREMITIES: +Tremors. No cyanosis, clubbing or edema. NEUROLOGIC: Alert and oriented x3. No focal deficit. No sensory deficit. PSYCHOSOCIAL: No signs of depression. INTEGUMENTARY: No open wounds. ASSESSMENT AND PLAN:63-year-old man with a past medical history of significant alcohol abuse, who was brought in for signs of alcohol withdrawal after quitting drinking 5 days prior to admission. ETOH withdrawal: -Improving. Continue Librium maintenance dose. -PRN Xanax Acute pulmonary embolism -Likely culprit of left-sided chest wall pleuritic pain. -No evidence of DVT -Echo with good RV function. -On Eliquis 10 mg p.o. x7 days followed by 5 mg twice daily. SIRS W/Leukocytosis, likely reactive w/PE -Resolved . DC ceftriaxone Deconditioning -rehab plan per PT and OT. DVT prophylaxis: eliquis Patient was seen in collaboration with Dr. Rock Result Diagram: 02/19/19 0549 02/17/19 0637 Results 24hrs Laboratory Tests Test 02/19/19 05:49 White Blood Count 10.8 Red Blood Count 3.60 L Hemoglobin 11.7 L Hematocrit 35.9 L Mean Corpuscular Volume 99.7 Mean Corpuscular Hemoglobin 32.5 Mean Corpuscular Hemoglobin Concent 32.6 Red Cell Distribution Width 12.9 Platelet Count 479 H Mean Platelet Volume 10.6 H Immature Granulocytes % 0.700 H Neutrophils % 70.4 Lymphocytes % 13.6 L Monocytes % 11.7 H Eosinophils % 2.8 Basophils % 0.8 Nucleated Red Blood Cells % 0.0 Immature Granulocytes # 0.080 H Neutrophils # 7.6 H Lymphocytes # 1.5 Monocytes # 1.3 H Eosinophils # 0.3 Basophils # 0.1 Nucleated Red Blood Cells # 0.0 Exam/Review of Systems Exam Vitals Vital Signs Date Temp Pulse Resp B/P (MAP) Pulse Ox O2 O2 Flow FiO2 Time Delivery Rate 02/19/19 98.1 80 18 118/79 97 Room Air 07:00 (92) 02/15/19 2.0 19:58 Intake and Output 02/18/19 02/18/19 02/19/19 1515:00 23:00 07:00 IntakeIntake Total 480 ml OutputOutput Total 800 ml 1000 ml BalanceBalance -320 ml -1000 ml Results Results 24hrs Laboratory Tests Test 02/19/19 05:49 White Blood Count 10.8 Red Blood Count 3.60 L Hemoglobin 11.7 L Hematocrit 35.9 L Mean Corpuscular Volume 99.7 Mean Corpuscular Hemoglobin 32.5 Mean Corpuscular Hemoglobin Concent 32.6 Red Cell Distribution Width 12.9 Platelet Count 479 H Mean Platelet Volume 10.6 H Immature Granulocytes % 0.700 H Neutrophils % 70.4 Lymphocytes % 13.6 L Monocytes % 11.7 H Eosinophils % 2.8 Basophils % 0.8 Nucleated Red Blood Cells % 0.0 Immature Granulocytes # 0.080 H Neutrophils # 7.6 H Lymphocytes # 1.5 Monocytes # 1.3 H Eosinophils # 0.3 Basophils # 0.1 Nucleated Red Blood Cells # 0.0 Medications Medication Current Medications Docusate Sodium (Colace) 100 mg BID PO Last administered on 02/18/19at 20:34; Admin Dose 100 MG; Start 02/12/19 at 21:00 Senna (Senokot) 1 tab HS PO Last administered on 02/18/19at 20:33; Admin Dose 1 TAB; Start 02/12/19 at 21:00 Magnesium Hydroxide (Milk Of Mag) 30 ml BID PRN PO CONSTIPATION; Start 02/12/19 at 20:30 Lactulose (Enulose) 20 gm DAILY PRN PO CONSTIPATION; Start 02/12/19 at 20:30 Bisacodyl (Dulcolax Supp) 10 mg DAILY PRN [place] CONSTIPATION; Start 02/12/19 at 20:30 Acetaminophen (Tylenol Tab) 650 mg Q4H PRN PO PAIN Last administered on 02/16/19 08:09; Admin Dose 650 MG; Start 02/12/19 at 20:30 [facility] This patient orellana... PRN PRN XX WOUND CARE; Start 02/13/19 at 04:00 Multivitamins/ Minerals (Theragran-M) 1 tab DAILY PO Last administered on 02/19/19 10:00; Admin Dose 1 TAB; Start 02/13/19 at 10:30 Thiamine HCl (Vitamin B1) 50 mg DAILY PO Last administered on 02/19/19 10:00; Admin Dose 50 MG; Start 02/14/19 at 09:00 Baclofen (Lioresal) 5 mg TID PO Last administered on 02/19/19 13:30; Admin Dose 5 MG; Start 02/14/19 at 13:00 Alprazolam (Xanax) 0.25 mg Q12H PRN PO ANXIETY Last administered on 02/15/19 08:30; Admin Dose 0.25 MG; Start 02/14/19 at 12:00 Chlordiazepoxide (Librium) 25 mg TID PO Last administered on 02/19/19 13:30; Admin Dose 25 MG; Start 02/14/19 at 13:00 Ceftriaxone Sodium 50 ml @ 100 mls/hr Q24H IVPB Last administered on 02/18/19 16:53; Admin Dose 100 MLS/HR; Start 02/14/19 at 16:00 Ibuprofen (Motrin) 400 mg Q6H PRN PO MILD PAIN(1-3) OR TEMP>38C Last administered on 02/17/19 20:58; Admin Dose 400 MG; Start 02/15/19 at 11:30 Pantoprazole (Protonix Tab) 40 mg BID@06,18 PO Last administered on 02/19/19 05:34; Admin Dose 40 MG; Start 02/15/19 at 18:00 Apixaban (Eliquis) 10 mg BID PO Last administered on 02/19/19 10:02; Admin Dose 10 MG; Start 02/18/19 at 13:00; Stop 02/24/19 at 21:01 Apixaban (Eliquis) 5 mg BID PO ; Start 02/25/19 at 09:00 DONALD MURGUIA NP Feb 19, 2019 15:11
[2019-02-19 19:54] VITALS: BP 120/75; PULSE 84; RESP 18
[2019-02-19] MEDS: SENNA TAB PO SCH (21:06)
[2019-02-20 02:00] VITALS: BP 119/70; PULSE 81; RESP 18
[2019-02-20] MEDS: PANTOPRAZOLE (EC) 40 MG TAB PO SCH ×2 (05:50→18:18)
[2019-02-20 07:30] VITALS: BP 123/72; PULSE 80; RESP 18
--- NOTE | 2019-02-20 09:33 | PN ---
Date/Time of Note Date/Time of Note DATE: 02/20/19 TIME: 09:32 Subjective AWAKE ALERT, - SOB , PO INTAKE GOOD Objective Vital Signs Date Temp Pulse Resp B/P (MAP) Pulse Ox O2 O2 Flow FiO2 Time Delivery Rate 02/20/19 98.3 80 18 123/72 97 Room Air 07:30 (89) Intake and Output 02/19/19 02/19/19 02/20/19 1515:00 23:00 07:00 IntakeIntake Total 1200 ml 700 ml OutputOutput Total 800 ml BalanceBalance 400 ml 700 ml Exam LUNGS CTA COR RRR GOOD MOTOR CLOF SBA BED MOB , XT AND GAIT WITH FWW Results/Medications Result Diagram: 02/19/19 0549 02/17/19 0637 Medications Current Medications Docusate Sodium (Colace) 100 mg BID PO Last administered on 02/19/19at 21:06; Admin Dose 100 MG; Start 02/12/19 at 21:00 Senna (Senokot) 1 tab HS PO Last administered on 02/19/19at 21:06; Admin Dose 1 TAB; Start 02/12/19 at 21:00 Magnesium Hydroxide (Milk Of Mag) 30 ml BID PRN PO CONSTIPATION; Start 02/12/19 at 20:30 Lactulose (Enulose) 20 gm DAILY PRN PO CONSTIPATION; Start 02/12/19 at 20:30 Bisacodyl (Dulcolax Supp) 10 mg DAILY PRN [place] CONSTIPATION; Start 02/12/19 at 20:30 Acetaminophen (Tylenol Tab) 650 mg Q4H PRN PO PAIN Last administered on 02/16/19at 08:09; Admin Dose 650 MG; Start 02/12/19 at 20:30 [facility] This patient orellana... PRN PRN XX WOUND CARE; Start 02/13/19 at 04:00 Multivitamins/ Minerals (Theragran-M) 1 tab DAILY PO Last administered on 02/19/19at 10:00; Admin Dose 1 TAB; Start 02/13/19 at 10:30 Thiamine HCl (Vitamin B1) 50 mg DAILY PO Last administered on 02/19/19at 10:00; Admin Dose 50 MG; Start 02/14/19 at 09:00 Baclofen (Lioresal) 5 mg TID PO Last administered on 02/19/19 21:06; Admin Dose 5 MG; Start 02/14/19 at 13:00 Alprazolam (Xanax) 0.25 mg Q12H PRN PO ANXIETY Last administered on 02/15/19 08:30; Admin Dose 0.25 MG; Start 02/14/19 at 12:00 Chlordiazepoxide (Librium) 25 mg TID PO Last administered on 02/19/19 21:06; Admin Dose 25 MG; Start 02/14/19 at 13:00 Ibuprofen (Motrin) 400 mg Q6H PRN PO MILD PAIN(1-3) OR TEMP>38C Last administered on 02/17/19 20:58; Admin Dose 400 MG; Start 02/15/19 at 11:30 Pantoprazole (Protonix Tab) 40 mg BID@06,18 PO Last administered on 02/20/19 05:50; Admin Dose 40 MG; Start 02/15/19 at 18:00 Apixaban (Eliquis) 10 mg BID PO Last administered on 02/19/19 21:06; Admin Dose 10 MG; Start 02/18/19 at 13:00; Stop 02/24/19 at 21:01 Apixaban (Eliquis) 5 mg BID PO ; Start 02/25/19 at 09:00 Assessment/Plan Additional Assessment/Plan 1. Rehabilitation acute encephalopathy complicated by recent pulmonary embolus. [employer]AF[employer] 2. History of blunt head trauma. 3. Recent urinary tract infection. 4. Pulmonary embolus. Continues anticoagulation. We discussed transition to Eliquis from Lovenox.SATS STABLE ON DIVINE VALDIVIA MD Feb 20, 2019 09:33
[2019-02-20] MEDS: DOCUSATE SODIUM 100 MG CAP PO SCH ×2 (10:43→21:15)
[2019-02-20] MEDS: MULTIVITAMINS/MINERALS TAB PO SCH (10:44)
[2019-02-20] MEDS: CHLORDIAZEPOXIDE 25 MG CAP PO SCH ×3 (10:44→21:15)
[2019-02-20] MEDS: APIXABAN 5 MG TABLET PO SCH ×2 (10:44→21:16)
[2019-02-20] MEDS: BACLOFEN 10 MG TAB PO SCH ×3 (10:45→21:16)
[2019-02-20] MEDS: THIAMINE 100 MG TAB PO SCH (10:45)
[2019-02-20 14:00] VITALS: BP 104/81; PULSE 89; RESP 18
--- NOTE | 2019-02-20 15:16 | PN ---
Date/Time of Note Date/Time of Note DATE: 02/20/19 TIME: 15:13 Assessment/Plan VTE [place] [facility] [place]: 3 [place] [facility] [place] Yes Pharmacological prophylaxis: apixaban Lines/Catheters [facility] (from [facility] Saline Lock Assessment/Plan Hospital Course Assessment/Plan: ETOH withdrawal: -Improving. taper librium -PRN Xanax Acute pulmonary embolism -Likely culprit of left-sided chest wall pleuritic pain. -No evidence of DVT -Echo with good RV function. -On Eliquis SIRS W/Leukocytosis, likely reactive w/PE -Resolved . Deconditioning -rehab plan per PT and OT. DISPO/PLAN: continue ARU services Discussed POC with Dr. Shultz Result Diagram: 02/19/19 0549 02/17/19 0637 Subjective 24 Hr Interval Summary Free Text/Dictation Alert and oriented during visit. No signs of distress. Exam/Review of Systems Exam Vitals Vital Signs Date Temp Pulse Resp B/P (MAP) Pulse Ox O2 O2 Flow FiO2 Time Delivery Rate 02/20/19 98.3 80 18 123/72 97 Room Air 07:30 (89) Intake and Output 02/19/19 02/19/19 02/20/19 1515:00 23:00 07:00 IntakeIntake Total 1200 ml 700 ml OutputOutput Total 800 ml BalanceBalance 400 ml 700 ml Constitutional: alert, oriented Psych: nl mood/affect Head: normocephalic Eyes: nl conjunctiva Respiratory: clear to auscultation, normal air movement Cardiovascular: regular rate and rhythm Gastrointestinal: soft, non-tender Genitourinary - Male: nl penis Neurological: CONDUIT BENDER II-XII intact, nl mental status, nl speech Medications Medication Current Medications Docusate Sodium (Colace) 100 mg BID PO Last administered on 02/20/19at 10:43; Admin Dose 100 MG; Start 02/12/19 at 21:00 Senna (Senokot) 1 tab HS PO Last administered on 02/19/19at 21:06; Admin Dose 1 TAB; Start 02/12/19 at 21:00 Magnesium Hydroxide (Milk Of Mag) 30 ml BID PRN PO CONSTIPATION; Start 02/12/19 at 20:30 Lactulose (Enulose) 20 gm DAILY PRN PO CONSTIPATION; Start 02/12/19 at 20:30 Bisacodyl (Dulcolax Supp) 10 mg DAILY PRN [place] CONSTIPATION; Start 02/12/19 at 20:30 Acetaminophen (Tylenol Tab) 650 mg Q4H PRN PO PAIN Last administered on 02/16/19 08:09; Admin Dose 650 MG; Start 02/12/19 at 20:30 Miscellaneous Information (Pending [facility] Order For Wound Care) This patient orellana... PRN PRN XX WOUND CARE; Start 02/13/19 at 04:00 Multivitamins/ Minerals (Theragran-M) 1 tab DAILY PO Last administered on 02/20/19 10:44; Admin Dose 1 TAB; Start 02/13/19 at 10:30 Thiamine HCl (Vitamin B1) 50 mg DAILY PO Last administered on 02/20/19 10:45; Admin Dose 50 MG; Start 02/14/19 at 09:00 Baclofen (Lioresal) 5 mg TID PO Last administered on 02/20/19 15:00; Admin Dose 5 MG; Start 02/14/19 at 13:00 Alprazolam (Xanax) 0.25 mg Q12H PRN PO ANXIETY Last administered on 02/15/19 08:30; Admin Dose 0.25 MG; Start 02/14/19 at 12:00 Chlordiazepoxide (Librium) 25 mg TID PO Last administered on 02/20/19 14:59; Admin Dose 25 MG; Start 02/14/19 at 13:00 Ibuprofen (Motrin) 400 mg Q6H PRN PO MILD PAIN(1-3) OR TEMP>38C Last administered on 02/17/19 20:58; Admin Dose 400 MG; Start 02/15/19 at 11:30 Pantoprazole (Protonix Tab) 40 mg BID@,18 PO Last administered on 02/20/19 05:50; Admin Dose 40 MG; Start 02/15/19 at 18:00 Apixaban (Eliquis) 10 mg BID PO Last administered on 02/20/19 10:44; Admin Dose 10 MG; Start 02/18/19 at 13:00; Stop 02/24/19 at 21:01 Apixaban (Eliquis) 5 mg BID PO ; Start 02/25/19 at 09:00 BIBI DOMINGUEZ NP Feb 20, 2019 15:16
[2019-02-20 19:30] VITALS: BP 108/67; PULSE 85; RESP 18
[2019-02-20] MEDS: SENNA TAB PO SCH (21:15)
[2019-02-21 02:00] VITALS: BP 118/72; RESP 18
[2019-02-21] MEDS: PANTOPRAZOLE (EC) 40 MG TAB PO SCH ×2 (06:12→19:06)
[2019-02-21 08:00] VITALS: BP 91/69; PULSE 100; RESP 20
[2019-02-21] MEDS: THIAMINE 100 MG TAB PO SCH (08:52)
[2019-02-21] MEDS: CHLORDIAZEPOXIDE 25 MG CAP PO SCH (08:54)
[2019-02-21] MEDS: DOCUSATE SODIUM 100 MG CAP PO SCH ×2 (08:54→21:33)
[2019-02-21] MEDS: BACLOFEN 10 MG TAB PO SCH ×3 (08:54→21:33)
[2019-02-21] MEDS: MULTIVITAMINS/MINERALS TAB PO SCH (08:55)
[2019-02-21] MEDS: APIXABAN 5 MG TABLET PO SCH ×2 (08:55→21:34)
[2019-02-21 10:00] VITALS: BP 113/63; PULSE 72; RESP 18
[2019-02-21 14:00] VITALS: BP 120/60; PULSE 78; RESP 18
--- NOTE | 2019-02-21 19:10 | PN ---
Date/Time of Note Date/Time of Note DATE: 02/21/19 TIME: 19:07 Assessment/Plan VTE Prophylaxis Risk score (from [facility] [place]0 risk: 3 SCD applied (from [facility] [place]): Yes Pharmacological prophylaxis: apixaban Lines/Catheters IV C[facility] Type (from [facility]): Saline Lock Assessment/Plan Hospital Course Assessment/Plan: ETOH withdrawal: -Improving. taper librium -PRN Xanax Acute pulmonary embolism -Likely culprit of left-sided chest wall pleuritic pain. -No evidence of DVT -Echo with good RV function. -On Eliquis SIRS W/Leukocytosis, likely reactive w/PE -Resolved . Deconditioning -rehab plan per PT and OT. DISPO/PLAN: continue ARU services. taper librium Discussed POC with Dr. Shultz Result Diagram: 02/19/19 0549 02/17/19 0637 Subjective 24 Hr Interval Summary Free Text/Dictation alert and oriented during visit. comfortable. Exam/Review of Systems Exam Vitals Vital Signs Date Temp Pulse Resp B/P (MAP) Pulse Ox O2 O2 Flow FiO2 Time Delivery Rate 02/21/19 98.1 100 20 91/69 (76) 98 Room Air 08:00 Intake and Output 02/20/19 02/20/19 02/21/19 1515:00 23:00 07:00 IntakeIntake Total 1100 ml 950 ml OutputOutput Total 300 ml BalanceBalance 800 ml 950 ml Exam Constitutional: alert, oriented Psych: nl mood/affect Head: normocephalic Eyes: nl conjunctiva Respiratory: clear to auscultation, normal air movement Cardiovascular: regular rate and rhythm Gastrointestinal: soft, non-tender Neurological: SIGNAL REPAIRER II-XII intact, nl mental status, nl speech Medications Medication Current Medications Docusate Sodium (Colace) 100 mg BID PO Last administered on 02/21/19at 08:54; Admin Dose 100 MG; Start 02/12/19 at 21:00 Senna (Senokot) 1 tab HS PO Last administered on 02/20/19at 21:15; Admin Dose 1 TAB; Start 02/12/19 at 21:00 Magnesium Hydroxide (Milk Of Mag) 30 ml BID PRN PO CONSTIPATION; Start 02/12/19 at 20:30 Lactulose (Enulose) 20 gm DAILY PRN PO CONSTIPATION; Start 02/12/19 at 20:30 Bisacodyl (Dulcolax Supp) 10 mg DAILY PRN [place] CONSTIPATION; Start 02/12/19 at 20:30 Acetaminophen (Tylenol Tab) 650 mg Q4H PRN PO PAIN Last administered on 02/16/19 08:09; Admin Dose 650 MG; Start 02/12/19 at 20:30 Miscellaneous Information (Pending [facility] Order For Wound Care) This patient orellana... PRN PRN XX WOUND CARE; Start 02/13/19 at 04:00 Multivitamins/ Minerals (Theragran-M) 1 tab DAILY PO Last administered on 02/21/19 08:55; Admin Dose 1 TAB; Start 02/13/19 at 10:30 Thiamine HCl (Vitamin B1) 50 mg DAILY PO Last administered on 02/21/19 08:52; Admin Dose 50 MG; Start 02/14/19 at 09:00 Baclofen (Lioresal) 5 mg TID PO Last administered on 02/21/19 13:37; Admin Dose 5 MG; Start 02/14/19 at 13:00 Alprazolam (Xanax) 0.25 mg Q12H PRN PO ANXIETY Last administered on 02/15/19 08:30; Admin Dose 0.25 MG; Start 02/14/19 at 12:00 Ibuprofen (Motrin) 400 mg Q6H PRN PO MILD PAIN(1-3) OR TEMP>38C Last administered on 02/17/19 20:58; Admin Dose 400 MG; Start 02/15/19 at 11:30 Pantoprazole (Protonix Tab) 40 mg BID@,18 PO Last administered on 02/21/19 19:06; Admin Dose 40 MG; Start 02/15/19 at 18:00 Apixaban (Eliquis) 10 mg BID PO Last administered on 02/21/19 08:55; Admin Dose 10 MG; Start 02/18/19 at 13:00; Stop 02/24/19 at 21:01 Apixaban (Eliquis) 5 mg BID PO ; Start 02/25/19 at 09:00 Chlordiazepoxide (Librium) 25 mg BID PO Last administered on 02/21/19 08:54; Admin Dose 25 MG; Start 02/20/19 at 21:00 BIBI DOMINGUEZ NP Feb 21, 2019 19:10
[2019-02-21 20:00] VITALS: BP 104/66; PULSE 78; RESP 18
[2019-02-21] MEDS: SENNA TAB PO SCH (21:33)
[2019-02-22 01:55] VITALS: BP 112/75; PULSE 80; RESP 18
[2019-02-22] MEDS: PANTOPRAZOLE (EC) 40 MG TAB PO SCH ×2 (06:44→17:50)
[2019-02-22 07:00] VITALS: BP 114/65; PULSE 100; RESP 18
[2019-02-22] MEDS: APIXABAN 5 MG TABLET PO SCH ×2 (10:49→20:22)
[2019-02-22] MEDS: DOCUSATE SODIUM 100 MG CAP PO SCH ×2 (10:49→20:21)
[2019-02-22] MEDS: MULTIVITAMINS/MINERALS TAB PO SCH (10:50)
[2019-02-22] MEDS: CHLORDIAZEPOXIDE 25 MG CAP PO SCH (10:50)
[2019-02-22] MEDS: THIAMINE 100 MG TAB PO SCH (10:51)
[2019-02-22] MEDS: BACLOFEN 10 MG TAB PO SCH ×3 (10:51→20:21)
[2019-02-22 14:00] VITALS: BP 93/65; PULSE 103; RESP 18
--- NOTE | 2019-02-22 14:21 | PN ---
Date/Time of Note Date/Time of Note DATE: 02/22/19 TIME: 14:19 Objective Vital Signs Date Temp Pulse Resp B/P (MAP) Pulse Ox O2 O2 Flow FiO2 Time Delivery Rate 02/22/19 98.1 100 18 114/65 92 Room Air 07:00 (81) Intake and Output 02/21/19 02/21/19 02/22/19 1515:00 23:00 07:00 IntakeIntake Total 810 ml 500 ml OutputOutput Total 1270 ml 700 ml BalanceBalance -460 ml -200 ml Exam INTERDISCIPLINARY TEAM CONFERENCE Attended by PT, OT, ST, Biometrics Technician, Social Work, Rehabilitation Nursing, Contact Lens Edge Buffer and Improvement ManagerPulmonary Disease Specialist Exam: Pulm- cta Abd- soft BOWEL- Cont BLADDER-Cont SKIN- improving OT- DRESSING- DE BATHING-DE TOILETING- DE PT- BED MOBILITY- DE TRANSFERS-s/DE AMBULATION- DE 200 feet COGNITION- baseline A/P- Interdisciplinary team conference held today. Please see interdisciplinary sheet. Working toward d.c. on 02/23 with post discharge follow up of physical therapy, occupational therapy. Results/Medications Result Diagram: 02/19/19 0549 Medications Current Medications Docusate Sodium (Colace) 100 mg BID PO Last administered on 02/22/19at 10:49; Admin Dose 100 MG; Start 02/12/19 at 21:00 Senna (Senokot) 1 tab HS PO Last administered on 02/21/19at 21:33; Admin Dose 1 TAB; Start 02/12/19 at 21:00 Magnesium Hydroxide (Milk Of Mag) 30 ml BID PRN PO CONSTIPATION; Start 02/12/19 at 20:30 Lactulose (Enulose) 20 gm DAILY PRN PO CONSTIPATION; Start 02/12/19 at 20:30 Bisacodyl (Dulcolax Supp) 10 mg DAILY PRN [place] CONSTIPATION; Start 02/12/19 at 20 :30 Acetaminophen (Tylenol Tab) 650 mg Q4H PRN PO PAIN Last administered on 02/16/19at 08:09; Admin Dose 650 MG; Start 02/12/19 at 20:30 Miscellaneous Information (Pending [facility]yl Order For Wound Care) This patient orellana... PRN PRN XX WOUND CARE; Start 02/13/19 at 04:00 Multivitamins/ Minerals (Theragran-M) 1 tab DAILY PO Last administered on 02/22/19 10:50; Admin Dose 1 TAB; Start 02/13/19 at 10:30 Thiamine HCl (Vitamin B1) 50 mg DAILY PO Last administered on 02/22/19 10:51; Admin Dose 50 MG; Start 02/14/19 at 09:00 Baclofen (Lioresal) 5 mg TID PO Last administered on 02/22/19 14:06; Admin Dose 5 MG; Start 02/14/19 at 13:00 Alprazolam (Xanax) 0.25 mg Q12H PRN PO ANXIETY Last administered on 02/15/19 08:30; Admin Dose 0.25 MG; Start 02/14/19 at 12:00 Ibuprofen (Motrin) 400 mg Q6H PRN PO MILD PAIN(1-3) OR TEMP>38C Last administered on 02/17/19 20:58; Admin Dose 400 MG; Start 02/15/19 at 11:30 Pantoprazole (Protonix Tab) 40 mg BID@,18 PO Last administered on 02/22/19 06:44; Admin Dose 40 MG; Start 02/15/19 at 18:00 Apixaban (Eliquis) 10 mg BID PO Last administered on 02/22/19 10:49; Admin Dose 10 MG; Start 02/18/19 at 13:00; Stop 02/24/19 at 21:01 Apixaban (Eliquis) 5 mg BID PO ; Start 02/25/19 at 09:00 Chlordiazepoxide (Librium) 25 mg DAILY PO Last administered on 02/22/19 10:50; Admin Dose 25 MG; Start 02/22/19 at 09:00 DANO CARRERA MD Feb 22, 2019 14:21
--- NOTE | 2019-02-22 14:56 | PN ---
Date/Time of Note Date/Time of Note DATE: 02/22/19 TIME: 14:55 Assessment/Plan VTE Prophylaxis Risk score [place] [facility] [place] risk: 3 SCD applied (from [facility] [place] Yes Pharmacological prophylaxis: apixaban Lines/Catheters IV Catheter Type (from [facility]): Saline Lock Assessment/Plan Hospital Course SUBJECTIVE: No acute overnight episodes. OBJECTIVE: Vital signs-see below PHYSICAL EXAM: Constitutional: Adequately built,not in acute distress. HEENT: Head atraumatic and normocephalic. Eyes: Extraocular muscles intact. An icteric sclerae. Pupils equal bilaterally, reactive to light. NECK: Supple without lymph node. CHEST: Clear and good breath sounds equally. No wheezing. No rhonchi. HEART: S1, S2. Regular rate and rhythm. ABDOMEN: Soft/non tender with no rebound tenderness. Bowel sounds were present. EXTREMITIES: +Tremors. No cyanosis, clubbing or edema. NEUROLOGIC: Alert and oriented x3. No focal deficit. No sensory deficit. PSYCHOSOCIAL: No signs of depression. INTEGUMENTARY: No open wounds. ASSESSMENT AND PLAN:63-year-old man with a past medical history of significant alcohol abuse, who was brought in for signs of alcohol withdrawal after quitting drinking 5 days prior to admission. ETOH withdrawal: -stable.DC Librium tomorrow -PRN Xanax Acute pulmonary embolism -Likely culprit of left-sided chest wall pleuritic pain. -No evidence of DVT -Echo with good RV function. -On Eliquis 10 mg p.o. x7 days followed by 5 mg twice daily. SIRS W/Leukocytosis, likely reactive w/PE -Resolved . DC ceftriaxone Deconditioning -rehab plan per PT and OT. DVT prophylaxis: eliquis Agree w/dc plan in am. needs eliquis continued on dc w/pulmonary f/u in 3 mos. Patient was seen in collaboration with Result Diagram: 02/19/19 0549 Exam/Review of Systems Exam Vitals Vital Signs Date Temp Pulse Resp B/P (MAP) Pulse Ox O2 O2 Flow FiO2 Time Delivery Rate 02/22/19 98.1 100 18 114/65 92 Room Air 07:00 (81) Intake and Output 02/21/19 02/21/19 02/22/19 1515:00 23:00 07:00 IntakeIntake Total 810 ml 500 ml OutputOutput Total 1270 ml 700 ml BalanceBalance -460 ml -200 ml Medications Medication Current Medications Docusate Sodium (Colace) 100 mg BID PO Last administered on 02/22/19 10:49; Admin Dose 100 MG; Start 02/12/19 at 21:00 Senna (Senokot) 1 tab HS PO Last administered on 02/21/19 21:33; Admin Dose 1 TAB; Start 02/12/19 at 21:00 Magnesium Hydroxide (Milk Of Mag) 30 ml BID PRN PO CONSTIPATION; Start 02/12/19 at 20:30 Lactulose (Enulose) 20 gm DAILY PRN PO CONSTIPATION; Start 02/12/19 at 20:30 Bisacodyl (Dulcolax Supp) 10 mg DAILY PRN [place] CONSTIPATION; Start 02/12/19 at 20:30 Acetaminophen (Tylenol Tab) 650 mg Q4H PRN PO PAIN Last administered on 02/16/19 08:09; Admin Dose 650 MG; Start 02/12/19 at 20:30 [facility] This patient orellana... PRN PRN XX WOUND CARE; Start 02/13/19 at 04:00 Multivitamins/ Minerals (Theragran-M) 1 tab DAILY PO Last administered on 02/22/19 10:50; Admin Dose 1 TAB; Start 02/13/19 at 10:30 Thiamine HCl (Vitamin B1) 50 mg DAILY PO Last administered on 02/22/19 10:51; Admin Dose 50 MG; Start 02/14/19 at 09:00 Baclofen (Lioresal) 5 mg TID PO Last administered on 02/22/19 14:06; Admin Dose 5 MG; Start 02/14/19 at 13:00 Alprazolam (Xanax) 0.25 mg Q12H PRN PO ANXIETY Last administered on 02/15/19 08:30; Admin Dose 0.25 MG; Start 02/14/19 at 12:00 Ibuprofen (Motrin) 400 mg Q6H PRN PO MILD PAIN(1-3) OR TEMP>38C Last admin istered on 02/17/19 20:58; Admin Dose 400 MG; Start 02/15/19 at 11:30 Pantoprazole (Protonix Tab) 40 mg BID@,18 PO Last administered on 02/22/19at 06:44; Admin Dose 40 MG; Start 02/15/19 at 18:00 Apixaban (Eliquis) 10 mg BID PO Last administered on 02/22/19at 10:49; Admin Dose 10 MG; Start 02/18/19 at 13:00; Stop 02/24/19 at 21:01 Apixaban (Eliquis) 5 mg BID PO ; Start 02/25/19 at 09:00 Chlordiazepoxide (Librium) 25 mg DAILY PO Last administered on 02/22/19at 10:50; Admin Dose 25 MG; Start 02/22/19 at 09:00 DONALD MURGUIA NP Feb 22, 2019 14:56
[2019-02-22 20:21] VITALS: BP 113/68; PULSE 85; RESP 18
[2019-02-22] MEDS: SENNA TAB PO SCH (20:21)
[2019-02-23 02:15] VITALS: BP 115/79; PULSE 84; RESP 18
[2019-02-23] MEDS: PANTOPRAZOLE (EC) 40 MG TAB PO SCH (06:17)
[2019-02-23 07:30] VITALS: BP 110/77; PULSE 82; RESP 18
[2019-02-23] MEDS: BACLOFEN 10 MG TAB PO SCH ×2 (09:10→12:55)
[2019-02-23] MEDS: MULTIVITAMINS/MINERALS TAB PO SCH (09:10)
[2019-02-23] MEDS: THIAMINE 100 MG TAB PO SCH (09:10)
[2019-02-23] MEDS: APIXABAN 5 MG TABLET PO SCH (09:11)
[2019-02-23] MEDS: DOCUSATE SODIUM 100 MG CAP PO SCH (09:11)
[2019-02-23] MEDS: CHLORDIAZEPOXIDE 25 MG CAP PO SCH (09:11)
--- NOTE | 2019-02-23 12:44 | DS ---
Date/Time of Note Date/Time of Note DATE: 02/23/19 TIME: 12:42 Discharge Summary Admission/Discharge Info Admit Date/Time Feb 12, 2019 at 19:41 Discharge Date/Time Discharge Diagnosis 1. Encephalopathy, blunt head trauma. 2. Alcohol abuse. 3. Pulmonary Embolus 3. Improvements in self-care and mobility. Patient Condition: Good Hospital Course The patient was admitted for comprehensive interdisciplinary rehabilitation and made steady functional gains from a Min/mod level to a [place] level for self care tasks and mobility including ambulating over 200 feet with the use of a FWW. Patients's hospital course was notble for a PE, and he was started on appropriate anticoagulation. Patient is being discharged home with the recommendation of home health PT, OT and RN follow up. The DC meds are per the medication reconciliation sheet. The discharge equipment recommendations include: FWW, BSC, shower chair. The patient will follow up with PMD upon DC. Home Meds Active Scripts Folic Acid/Multivits-Min/Lut (MULTI-VITAMIN GUMMIES) 1 Each Tab.chew, 1 EACH PO DAILY for 30 Days, TAB.CHEW Prov:SHARA QUINTERO MD 02/01/19 Thiamine* (Thiamine*) 50 Mg Tablet, 50 MG PO DAILY for 30 Days, TAB Prov:SHARA QUINTERO MD 02/01/19 Primary Care Provider Not On Staff Doctor DANO CARRERA MD Feb 23, 2019 12:44
--- NOTE | 2019-02-23 14:24 | PN ---
Date/Time of Note Date/Time of Note DATE: 02/23/19 TIME: 14:24 Assessment/Plan VTE Prophylaxis Risk score (from [facility])>0 risk: 3 SCD applied (from [facility]): Yes Pharmacological prophylaxis: apixaban Lines/Catheters IV C[facility] Type (from [facility] Saline Lock Assessment/Plan Hospital Course SUBJECTIVE: for dc today OBJECTIVE: Vital signs-see below PHYSICAL EXAM: Constitutional: Adequately built,not in acute distress. HEENT: Head atraumatic and normocephalic. Eyes: Extraocular muscles intact. Anicteric sclerae. Pupils equal bilaterally, reactive to light. NECK: Supple without lymph node. CHEST: Clear and good breath sounds equally. No wheezing. No rhonchi. HEART: S1, S2. Regular rate and rhythm. ABDOMEN: Soft/non tender with no rebound tenderness. Bowel sounds were present. EXTREMITIES: +Tremors. No cyanosis, clubbing or edema. NEUROLOGIC: Alert and oriented x3. No focal deficit. No sensory deficit. PSYCHOSOCIAL: No signs of depression. INTEGUMENTARY: No open wounds. ASSESSMENT AND PLAN:63-year-old man with a past medical history of significant alcohol abuse, who was brought in for signs of alcohol withdrawal after quitting drinking 5 days prior to admission. ETOH withdrawal: -stable.DC Librium tomorrow -PRN Xanax Acute pulmonary embolism -Likely culprit of left-sided chest wall pleuritic pain. -No evidence of DVT -Echo with good RV function. -On Eliquis 10 mg p.o. x7 days followed by 5 mg twice daily. SIRS W/Leukocytosis, likely reactive w/PE -Resolved . DC ceftriaxone Deconditioning -rehab plan per PT and OT. DVT prophylaxis: eliquis Agree w/dc plan . needs eliquis continued on dc w/pulmonary f/u in 3 mos. Patient was seen in collaboration with Result Diagram: 02/19/19 0549 Exam/Review of Systems Exam Vitals Vital Signs Date Temp Pulse Resp B/P (MAP) Pulse Ox O2 O2 Flow FiO2 Time Delivery Rate 02/23/19 98.2 82 18 110/77 97 Room Air 07:30 (88) Intake and Output 02/22/19 02/22/19 02/23/19 1515:00 23:00 07:00 IntakeIntake Total 1600 ml 300 ml OutputOutput Total 800 ml 1050 ml BalanceBalance 800 ml -750 ml DONALD MURGUIA V. EDITOR Feb 23, 2019 14:24
[2019-02-25] MEDS ORDERED: APIXABAN 5 MG TABLET PO SCH (09:00)
== END 2019-02-23 13:45 | disposition home health service (06) | DRG 640 ==
LOC: VRC 19:41
PROVIDERS: ADMIT Physical Medicine & Rehabilitation; ATTEND Internal Medicine Pulmonary Disease
DX: E51.2 Wernicke's encephalopathy (principal); I26.99 Other pulmonary embolism without acute cor pulmonale; F10.239 Alcohol dependence with withdrawal, unspecified; N39.0 Urinary tract infection, site not specified; R07.89 Other chest pain; S09.90XD Unspecified injury of head, subsequent encounter; Z87.440 Personal history of urinary (tract) infections; F10.10 Alcohol abuse, uncomplicated; Z74.09 Other reduced mobility; F41.9 Anxiety disorder, unspecified; R25.1 Tremor, unspecified; F06.31 Mood disorder due to known physiological condition with depressive features; F10.20 Alcohol dependence, uncomplicated; F06.8 Other specified mental disorders due to known physiological condition
CPT/HCPCS: 71045; 71275; 76705; 80048; 80053; 81001; 82550; 82553; 83735; 84484; 85025; 87081; 87086; 93005; 93306; 93970; 97110; 97112; 97116; 97163; 97165; 97530; 97535; J0696; Q9967

== ENCOUNTER 2019-04-11 12:18 | Emergency (ER) | payer BC ==
[~2019-04-11] VITALS: Ht 165.1 cm; Wt 75.0 kg
[~2019-04-11 12:18] MED LIST changes: -LORA-441 PO; -ONDA8TAB9 PO
[2019-04-11] MEDS ORDERED: SOD CHLORIDE 0.9% 1,000 ML IV STA (12:27)
[2019-04-11 12:30] VITALS: Ht 165.1 cm; Wt 75.0 kg
[2019-04-11] MEDS ORDERED: LORAZEPAM 2 MG INJ IV ONE (12:30)
[2019-04-11] MEDS ORDERED: POTASSIUM CHLORIDE (SR) 20 MEQ TAB PO STA (14:02)
[2019-04-11 14:56] VITALS: BP 122/78; PULSE 89; RESP 18
[2019-04-11] MEDS ORDERED: LORAZEPAM 1 MG TAB PO ONE (15:00)
== END 2019-04-11 14:57 | disposition home or self-care (01) ==
LOC: E/R 12:18
DX: S50.11XA Contusion of right forearm, initial encounter (principal); R53.1 Weakness; S50.12XA Contusion of left forearm, initial encounter; R40.2142 Coma scale, eyes open, spontaneous, at arrival to emergency department; R40.2362 Coma scale, best motor response, obeys commands, at arrival to emergency department; R40.2252 Coma scale, best verbal response, oriented, at arrival to emergency department; V18.4XXA Pedal cycle driver injured in noncollision transport accident in traffic accident, initial encounter
CPT/HCPCS: 70450; 80053; 84484; 85025; 85610; 85730; 93005; 96374; 99285; J7030